=== PATIENT | female | born 1990 | race Caucasian/White ===

== ENCOUNTER 2023-06-26 11:48 | Emergency (ER) | payer OTHER, SELFPAY ==
[2023-06-26 11:52] VITALS: BP 114/71; PULSE 98; RESP 16; TEMP 37.1; O2SAT 99; BMI 28.2
--- NOTE | 2023-06-26 12:05 | ED_ITS ---
HPI - Female Genitourinary General Chief complaint: Back Pain/Injury Stated complaint: FLANK PAIN Time Seen by Provider: 06/26/23 11:51 Source: patient Mode of arrival: ambulance History of Present Illness HPI Narrative: 33-year-old female presents to the emergency department for a chief complaint of lower back pain. She believes she has a urinary tract infection. It started a few days ago when she took some [id number] Azo. It doesn't seem to be helping. No fever vomiting or abdominal pain. Related Data Home Medications Medication Instructions Recorded Confirmed norethindrone 1 mg-ethinyl 1 tab PO DAILY 06/26/23 06/26/23 estradiol 20 mcg (24)-iron 75 mg (4) tablet (Brooke 24 Fe) Previous Rx's Medication Instructions Recorded cephalexin 500 mg capsule 500 mg PO TID 7 days #21 caps 06/26/23 Allergies Allergy/AdvReac Type Severity Reaction Status Date / Time No Known Drug Allergies Allergy Verified 06/26/23 11:56 Review of Systems ROS Narrative A ten point review of systems is negative except as noted above. Exam Narrative Exam Narrative: Nurses note and vital signs reviewed and patient is not hypoxic. General: The patient appears well and in no apparent distress. Patient is resting comfortably on cart. Skin: Warm, dry, no pallor noted. There is no rash noted. Head: Normocephalic, atraumatic Eye: Normal conjunctiva, no drainage Ears, Nose, Mouth, and Throat: oral mucosa is moist. Nares patent. Cardiovascular: Regular Rate and Rhythm Respiratory: Patient is in no distress, no accessory muscle use, lungs are clear to auscultation, no wheezing, rales or rhonchi Back: non-tender, no CVA tenderness bilaterally to percussion. GI: soft and nontender Musculoskeletal: The patient has no evidence of calf tenderness, no pitting edema, symmetrical pulses noted bilaterally Neurological: A&O, normal speech Psychiatric: Cooperative Constitutional Vital Signs, click to edit/add: Last Vital Signs Temp 98.7 F 06/26/23 11:52 Pulse 98 H 06/26/23 11:52 Resp 16 06/26/23 11:52 BP 114/71 06/26/23 11:52 Pulse Ox 99 06/26/23 11:52 O2 Del Method Room Air 06/26/23 11:52 Course Vital Signs Vital signs: Vital Signs Temperature 98.7 F 06/26/23 11:52 Pulse Rate 98 H 06/26/23 11:52 Respiratory Rate 16 06/26/23 11:52 Blood Pressure 114/71 06/26/23 11:52 Pulse Oximetry 99 06/26/23 11:52 Oxygen Delivery Method Room Air 06/26/23 11:52 Temperature 98.7 F 06/26/23 11:52 Pulse Rate 98 H 06/26/23 11:52 Respiratory Rate 16 06/26/23 11:52 Blood Pressure 114/71 06/26/23 11:52 Pulse Oximetry 99 06/26/23 11:52 Oxygen Delivery Method Room Air 06/26/23 11:52 MDM - Female Genitourinary MDM Narrative Medical decision making narrative: urinalysis shows presence of urinary tract infection. test was positive and her hCG titer is 178. Rh type is positive. She is being prescribed Keflex and will need a repeat titer in two days to determine if her hCG titer is going up or down. This was discussed thoroughly with her and she is going to call her RADIO ENGINEER office today to arrange follow-up. I've no clinical suspicion of an ectopic . Treatment diagnosis and follow-up were discussed with the patient. Differential Diagnosis Differential diagnosis: Likely urinary tract infection and other (, miscarriage) Lab Data Attestation: I reviewed the patient's lab results. Labs: Lab Results 06/26/23 06/26/23 06/26/23 Range/Units 11:57 12:25 12:53 WBC 11.5 H (4.0-11.0) 10^3/uL RBC 3.87 L (4.20-5.40) 10^6/uL Hgb 11.8 L (12.0-16.0) g/dL Hct 36.1 (36.0-48.0) % MCV 93.3 (81.0-99.0) fL MCH 30.5 (26.7-34.0) pg MCHC 32.7 (29.9-35.2) g/dL RDW 12.9 (11.0-15.0) % Plt Count 264 (150-450) 10^3/uL MPV 10.1 (9.5-13.5) fL Neut % (Auto) 73.9 (43.0-75.0) % Lymph % (Auto) 20.5 (20.5-60.0) % [place] % (Auto) 3.8 (1.7-12.0) % Eos % (Auto) 1.3 (0.9-7.0) % Baso % (Auto) 0.3 (0.2-2.0) % Neut # (Auto) 8.5 H (1.4-6.5) 10^3/uL Lymph # (Auto) 2.4 (1.2-3.8) 10^3/uL [place] # (Auto) 0.4 (0.3-0.8) 10^3/uL Eos # (Auto) 0.2 (0.0-0.7) 10^3/uL Baso # (Auto) 0.0 (0.0-0.1) 10^3/uL Abs Immat Gran (auto) 0.02 (0.00-0.03) 10^3/uL Imm/Tot Granulo (auto) 0.2 (0.0-0.5) % Sodium 141 (136-145) mmol/L Potassium 3.6 (3.5-5.1) mmol/L Chloride 105 (98-107) mmol/L Carbon Dioxide 25.6 (21.0-32.0) mmol/L Anion Gap 14.0 BUN 11.0 (7.0-18.0) mg/dL Creatinine 0.81 (0.55-1.02) mg/dL Est GFR ( Amer) >60 (>=60) Est GFR (Non-Af Amer) >60 (>=60) BUN/Creatinine Ratio 13.6 Glucose 87 (74-106) mg/dL Calcium 8.4 L (8.5-10.1) mg/dL HCG, Quant 178 mIU/mL Urine Color Dk. orange (YELLOW) Urine Clarity Clear (CLEAR) Urine pH Color interference A (5.0-9.0) Ur Specific [place] 1.025 (1.005-1.025) Urine Protein Color interference A (NEG/TRACE) mg/dL Urine Glucose (UA) Color interference A (NEGATIVE) mg/dL Urine Ketones Color interference A (NEGATIVE) mg/dL Urine Occult Blood Color interference A (NEGATIVE) Urine Nitrite Color interference A (NEGATIVE) Urine Bilirubin Color interference A (NEGATIVE) Urine Urobilinogen Color interference A (0.2-1.0) EU/dL Ur Leukocyte Esterase Color interference A (NEGATIVE) Urine RBC 10-20 A (0-2) #/HPF Urine WBC 20-50 A (NONE SEEN) #/HPF Ur Squamous Epith Cells Few A (NONE/RARE) #/LPF Urine Crystals None seen (None Seen) #/HPF Urine Bacteria Small A (NONE SEEN) #/HPF Urine Casts None seen (NONE SEEN) #/LPF Urine Mucus Trace A (NONE SEEN) Urine HCG, Qual Positive A (NEGATIVE) Blood Type A Positive Discharge Plan Discharge Chief Complaint: Back Pain/Injury Clinical Impression: Urinary tract infection, Positive blood test Patient Disposition: Home, Self-Care Time of Disposition Decision: 14:02 Condition: Good Mode of Transportation: Private Vehicle Prescriptions / Home Meds: New cephalexin 500 mg capsule 500 mg PO TID 7 Days Qty: 21 0RF No Action Brooke 24 Fe 1 mg-20 mcg (24)/75 mg (4) tablet 1 tab PO DAILY Instructions: (ED), Urinary Tract Infection in Women (ED) Additional Instructions: Your hCG titer is 178. This will need to be repeated in two days to determine if it is going up or down. Please call your RADIO ENGINEER today to arrange follow-up. Stand Alone Forms: Portal Instructions Referrals: Shagufta Heredia [Primary Care Provider] - 1 week
[2023-06-26 12:21] LABS: Bilirubin Urine COLOR INTERFERENCE (NEGATIVE); Blood Urine COLOR INTERFERENCE (NEGATIVE); Clarity Urine CLEAR (CLEAR); Color Urine DK. ORANGE (YELLOW); Glucose Urine UA COLOR INTERFERENCE mg/dL (NEGATIVE); Ketones Urine COLOR INTERFERENCE mg/dL (NEGATIVE); Leukocyte Esterase Urine COLOR INTERFERENCE (NEGATIVE); Nitrite Urine COLOR INTERFERENCE (NEGATIVE); Protein Urine COLOR INTERFERENCE mg/dL (NEG/TRACE); Specific Gravity Urine 1.025 (1.005-1.025); Urobilinogen Urine COLOR INTERFERENCE EU/dL (0.2-1.0); pH Urine COLOR INTERFERENCE (5.0-9.0)
[2023-06-26 12:23] LABS: HCG Qualitative Urine* POSITIVE (NEGATIVE)
[2023-06-26 12:29] LABS: Bacteria Urine SMALL #/HPF (NONE SEEN); Crystals Seen? None Seen #/HPF (None Seen); Mucus Urine TRACE (NONE SEEN); Squamous Epithelial Cell Urine FEW #/LPF (NONE/RARE); WBC Urine 20-50 #/HPF (NONE SEEN)
[2023-06-26 12:30] LABS: Cast Seen? NONE SEEN #/LPF (NONE SEEN)
[2023-06-26 13:05] LABS: Basophils Percent Auto 0.3 % (0.2-2.0); Eosinophils Absolute Auto 0.2 10^3/uL (0.0-0.7); Eosinophils Percent Auto 1.3 % (0.9-7.0); Hematocrit 36.1 % (36.0-48.0); Hemoglobin 11.8 g/dL (12.0-16.0); Immature Granulocytes Abs Auto 0.02 10^3/uL (0.00-0.03); Immature Granulocytes Pct Auto 0.2 % (0.0-0.5); Lymphocytes Absolute Auto 2.4 10^3/uL (1.2-3.8); Lymphocytes Percent Auto 20.5 % (20.5-60.0); Mean Corpuscular HGB Conc 32.7 g/dL (29.9-35.2); Mean Corpuscular Hemoglobin 30.5 pg (26.7-34.0); Mean Corpuscular Volume 93.3 fL (81.0-99.0); Mean Platelet Volume 10.1 fL (9.5-13.5); Monocytes Absolute Auto 0.4 10^3/uL (0.3-0.8); Monocytes Percent Auto 3.8 % (1.7-12.0); Neutrophils Absolute Auto 8.5 10^3/uL (1.4-6.5); Neutrophils Percent Auto 73.9 % (43.0-75.0); Platelet Count 264 10^3/uL (150-450); Red Blood Count 3.87 10^6/uL (4.20-5.40); Red Cell Distribution Width 12.9 % (11.0-15.0); White Blood Count 11.5 10^3/uL (4.0-11.0)
[2023-06-26 13:30] LABS: BUN Creatinine Ratio 13.6; Calcium 8.4 mg/dL (8.5-10.1); Carbon Dioxide 25.6 mmol/L (21.0-32.0); Chloride 105 mmol/L (98-107); Estimated GFR (African America >60 (>=60); Estimated GFR (Non-African Ame >60 (>=60); Glucose 87 mg/dL (74-106); HCG Quantitative 178 mIU/mL; Potassium 3.6 mmol/L (3.5-5.1); Sodium 141 mmol/L (136-145)
== END 2023-06-26 14:18 | disposition home or self-care (01) ==
PROVIDERS: Emergency Provider Emergency Medicine; PCP Family Medicine
DX: O23.40 Unspecified infection of urinary tract in pregnancy, unspecified trimester (principal); N39.0 Urinary tract infection, site not specified; Z3A.00 Weeks of gestation of pregnancy not specified
CPT/HCPCS: 36415; 80048; 81001; 84702; 84703; 85025; 86900; 86901; 99283

== ENCOUNTER 2023-07-03 14:40 | Emergency (ER) | payer OTHER, SELFPAY ==
[2023-07-03 15:03] VITALS: BP 114/65; PULSE 75; RESP 18; TEMP 36.6; O2SAT 98; BMI 26.9
[2023-07-03 16:09] LABS: Bilirubin Urine NEGATIVE (NEGATIVE); Blood Urine MODERATE (NEGATIVE); Clarity Urine CLEAR (CLEAR); Color Urine LT. YELLOW (YELLOW); Glucose Urine UA NEGATIVE (NEGATIVE); Ketones Urine NEGATIVE (NEGATIVE); Leukocyte Esterase Urine SMALL (NEGATIVE); Nitrite Urine NEGATIVE (NEGATIVE); Protein Urine NEGATIVE (NEG/TRACE); Specific Gravity Urine 1.015 (1.005-1.025); Urobilinogen Urine 0.2 EU/dL (0.2-1.0); pH Urine 6.5 (5.0-9.0)
[2023-07-03 16:09] LABS: Basophils Percent Auto 0.5 % (0.2-2.0); Eosinophils Absolute Auto 0.2 10^3/uL (0.0-0.7); Eosinophils Percent Auto 2.2 % (0.9-7.0); Hematocrit 39.6 % (36.0-48.0); Hemoglobin 12.6 g/dL (12.0-16.0); Immature Granulocytes Abs Auto 0.03 10^3/uL (0.00-0.03); Immature Granulocytes Pct Auto 0.4 % (0.0-0.5); Lymphocytes Absolute Auto 2.8 10^3/uL (1.2-3.8); Lymphocytes Percent Auto 38.8 % (20.5-60.0); Mean Corpuscular HGB Conc 31.8 g/dL (29.9-35.2); Mean Corpuscular Hemoglobin 30.1 pg (26.7-34.0); Mean Corpuscular Volume 94.5 fL (81.0-99.0); Mean Platelet Volume 9.9 fL (9.5-13.5); Monocytes Absolute Auto 0.4 10^3/uL (0.3-0.8); Monocytes Percent Auto 5.3 % (1.7-12.0); Neutrophils Absolute Auto 3.9 10^3/uL (1.4-6.5); Neutrophils Percent Auto 52.8 % (43.0-75.0); Platelet Count 289 10^3/uL (150-450); Red Blood Count 4.19 10^6/uL (4.20-5.40); Red Cell Distribution Width 12.2 % (11.0-15.0); White Blood Count 7.3 10^3/uL (4.0-11.0)
[2023-07-03 16:10] LABS: Urine Microscopic Indicated YES
[2023-07-03 16:20] LABS: Bacteria Urine TRACE #/HPF (NONE SEEN); Cast Seen? NONE SEEN #/LPF (NONE SEEN); Crystals Seen? None Seen #/HPF (None Seen); Mucus Urine NONE SEEN (NONE SEEN); Squamous Epithelial Cell Urine FEW #/LPF (NONE/RARE); Urine Culture Indicated YES
[2023-07-03 16:27] LABS: HCG Quantitative 74 mIU/mL
--- NOTE | 2023-07-03 16:36 | US_ITS ---
The [address] [address] Patient Name: JUANJOSE GERONIMO MRN: [facility]:[id number] date: 1990 Sex: F Assigned Patient Location: ER Current Patient Location: ER Accession/Order Number: [id number] Exam Date: 07/03/2023 17:00 Report Date: 07/03/2023 18:22 At the request of: JOE HAWKINS Procedure: US OB transvaginal EXAM: US OB transvaginal; [id number] HISTORY: Uncontrolled pain, miscarriage. TECHNIQUE: Real-time transvaginal sonography of the pelvis was performed. Endovaginal ultrasound was performed for better evaluation of the endometrial stripe and adnexa. Doppler ultrasound and spectral waveforms of both ovaries were obtained. COMPARISON: None. FINDINGS: UTERUS: Normal size. Position: Anteverted. Anteflexed. Myometrium is homogeneous. Fibroids: None. ENDOMETRIUM: Complex cystic thickening of the fundal portion of the endometrium which demonstrates intrinsic Doppler signal. RIGHT OVARY: Normal appearance of the parenchyma and follicles. Size: 2.2 x 2.7 x 2.2 cm. Volume: 6.8 cc. No adnexal masses. Venous and arterial waveforms are within normal limits and symmetric with the opposite ovary. LEFT OVARY: Normal appearance of the parenchyma and follicles. Size: 2.9 x 2.5 x 3.1 cm. Volume: 11.6 cc. No adnexal masses. Venous and arterial waveforms are within normal limits and symmetric with the opposite ovary. PELVIC FLUID: No significant free fluid. US/US OB transvaginal IMPRESSION: 1. No viable intrauterine demonstrated. 2. Complex thickening of the fundal portion of the endometrium which contains intrinsic Doppler signal. In the setting of recent these findings are suspect for retained products of conception. Electronically authenticated by: ALEXANDRIA LI Date: 07/03/2023 18:22
--- NOTE | 2023-07-03 16:37 | ED.PREGNANC1 ---
HPI - General Chief complaint: Vaginal Bleeding Stated complaint: GENERAL WEAKNESS Time Seen by Provider: 07/03/23 15:01 Source: patient Mode of arrival: walk-in Limitations: no limitations History of Present Illness HPI Narrative: Patient is a 33-year-old female who returns to the emergency department for reevaluation. Patient was seen in this emergency department 1 week ago and diagnosed with a positive test which was incidentally found when she was being evaluated for UTI symptoms. She finished a 7-day course of Keflex today and states she continues to have low back pain, she states she believes she has completed a miscarriage as she has had bleeding intermittently associated with the low back pain. Her paperboard box maker repeated a quantitative hCG level which she states decreased but she was told to come back to the ER for pain control. She has had no fevers or vomiting. She has not taken any medications [id number] and she was not prescribed any medicine. Related Data Home Medications Medication Instructions Recorded Confirmed norethindrone 1 mg-ethinyl 1 tab PO DAILY 06/26/23 06/26/23 estradiol 20 mcg (24)-iron 75 mg (4) tablet (Brooke 24 Fe) Previous Rx's Medication Instructions Recorded cephalexin 500 mg capsule 500 mg PO TID 7 days #21 caps 06/26/23 hydrocodone 5 mg-acetaminophen 325 1 tab PO Q6H PRN pain 3 days #12 07/03/23 mg tablet tabs ketorolac 10 mg tablet 10 mg PO TID PRN pain #10 tabs 07/03/23 ondansetron 4 mg disintegrating 4 mg PO Q6H PRN nausea and 07/03/23 tablet vomiting #12 tabs Allergies Allergy/AdvReac Type Severity Reaction Status Date / Time No Known Drug Allergies Allergy Verified 06/26/23 11:56 Review of Systems ROS Constitutional Denies: fever or chills Cardiovascular Denies: chest pain Respiratory Denies: shortness of breath or cough Gastrointestinal Denies: abdominal pain, nausea, vomiting or diarrhea Genitourinary Denies: painful urination Musculoskeletal Reports: back pain Integumentary/Breast Denies: rash Neurological Denies: headache PFSH PFSH Social History Smoking status: Current every day smoker Exam Narrative Exam Narrative: Gen.: Awake, alert, in no distress Head: Normocephalic, atraumatic ENT: Moist mucous membranes Respiratory: No respiratory distress, lungs clear bilaterally Cardio: Regular rate and rhythm Gastrointestinal: Abdomen is soft, nondistended and nontender to palpation; no CVA tenderness Extremities: Moves extremities equally Psych: Normal mood and affect Neuro: No focal neuro deficit Skin: Warm, dry, intact Constitutional Vital Signs, click to edit/add: Last Vital Signs Temp 97.8 F 07/03/23 15:03 Pulse 75 07/03/23 15:03 Resp 18 07/03/23 15:03 BP 114/65 07/03/23 15:03 Pulse Ox 98 07/03/23 15:03 O2 Del Method Room Air 07/03/23 15:03 Course Vital Signs Vital signs: Vital Signs Temperature 97.8 F 07/03/23 15:03 Pulse Rate 75 07/03/23 15:03 Respiratory Rate 18 07/03/23 15:03 Blood Pressure 114/65 07/03/23 15:03 Pulse Oximetry 98 07/03/23 15:03 Oxygen Delivery Method Room Air 07/03/23 15:03 Temperature 97.8 F 07/03/23 15:03 Pulse Rate 75 07/03/23 15:03 Respiratory Rate 18 07/03/23 15:03 Blood Pressure 114/65 07/03/23 15:03 Pulse Oximetry 98 07/03/23 15:03 Oxygen Delivery Method Room Air 07/03/23 15:03 MDM - OB/Uterine Contractions MDM Narrative Medical decision making narrative: Lab studies are unremarkable, urine specimen has improved significantly, quantitative hCG levels have decreased. Ultrasound shows continued evidence of retained products in the posterior aspect of the endometrium, this is likely given the patient low back pain. Bleeding is minimal at this time, intermittent. Patient was encouraged to follow-up for recheck with her paperboard box maker, her clinical presentation is consistent with incomplete at this time. She will be given a short course of analgesics, NSAIDs, Zofran. Return to the ER if symptoms change or worsen. Medical Records Attestation: I reviewed the patient's medical records. Lab Data Attestation: I reviewed the patient's lab results. Labs: Lab Results 07/03/23 07/03/23 Range/Units 15:40 15:53 WBC 7.3 (4.0-11.0) 10^3/uL RBC 4.19 L (4.20-5.40) 10^6/uL Hgb 12.6 (12.0-16.0) g/dL Hct 39.6 (36.0-48.0) % MCV 94.5 (81.0-99.0) fL MCH 30.1 (26.7-34.0) pg MCHC 31.8 (29.9-35.2) g/dL RDW 12.2 (11.0-15.0) % Plt Count 289 (150-450) 10^3/uL MPV 9.9 (9.5-13.5) fL Neut % (Auto) 52.8 (43.0-75.0) % Lymph % (Auto) 38.8 (20.5-60.0) % [place] % (Auto) 5.3 (1.7-12.0) % Eos % (Auto) 2.2 (0.9-7.0) % Baso % (Auto) 0.5 (0.2-2.0) % Neut # (Auto) 3.9 (1.4-6.5) 10^3/uL Lymph # (Auto) 2.8 (1.2-3.8) 10^3/uL [place] # (Auto) 0.4 (0.3-0.8) 10^3/uL Eos # (Auto) 0.2 (0.0-0.7) 10^3/uL Baso # (Auto) 0.0 (0.0-0.1) 10^3/uL Abs Immat Gran (auto) 0.03 (0.00-0.03) 10^3/uL Imm/Tot Granulo (auto) 0.4 (0.0-0.5) % HCG, Quant 74 mIU/mL Urine Color Lt. yellow (YELLOW) Urine Clarity Clear (CLEAR) Urine pH 6.5 (5.0-9.0) Ur Specific [place] 1.015 (1.005-1.025) Urine Protein Negative (NEG/TRACE) mg/dL Urine Glucose (UA) Negative (NEGATIVE) mg/dL Urine Ketones Negative (NEGATIVE) mg/dL Urine Occult Blood Moderate A (NEGATIVE) Urine Nitrite Negative (NEGATIVE) Urine Bilirubin Negative (NEGATIVE) Urine Urobilinogen 0.2 (0.2-1.0) EU/dL Ur Leukocyte Esterase Small A (NEGATIVE) Urine RBC 2-5 A (0-2) #/HPF Urine WBC 5-10 A (NONE SEEN) #/HPF Ur Squamous Epith Cells Few A (NONE/RARE) #/LPF Urine Crystals None seen (None Seen) #/HPF Urine Bacteria Trace A (NONE SEEN) #/HPF Urine Casts None seen (NONE SEEN) #/LPF Urine Mucus None seen (NONE SEEN) Ur Culture Indicated? Yes Blood Type A Positive Discharge Plan Discharge Chief Complaint: Vaginal Bleeding Clinical Impression: Incomplete Patient Disposition: Home, Self-Care Time of Disposition Decision: 18:32 Condition: Good Prescriptions / Home Meds: New hydrocodone-acetaminophen 5-325 mg tablet 1 tab PO Q6H PRN (Reason: pain) 3 Days Qty: 12 0RF Rx Instructions: DX: M54.5 ketorolac 10 mg tablet 10 mg PO TID PRN (Reason: pain) Qty: 10 0RF ondansetron 4 mg tablet,disintegrating 4 mg PO Q6H PRN (Reason: nausea and vomiting) Qty: 12 0RF No Action Brooke 24 Fe 1 mg-20 mcg (24)/75 mg (4) tablet 1 tab PO DAILY cephalexin 500 mg capsule 500 mg PO TID 7 Days Qty: 21 0RF Instructions: Miscarriage (ED) Stand Alone Forms: Portal Instructions Referrals: Shagufta Heredia [Primary Care Provider] - 1 week
[2023-07-03] MEDS: KETOROLAC TROMETHAMINE 60 MG/2 ML VIAL IM (16:44)
== END 2023-07-03 18:45 | disposition home or self-care (01) ==
PROVIDERS: Physician Assistant; Emergency Provider Emergency Medicine Emergency Medical Services; PCP Family Medicine
DX: O03.4 Incomplete spontaneous abortion without complication (principal); F17.210 Nicotine dependence, cigarettes, uncomplicated
CPT/HCPCS: 36415; 76817; 81001; 84702; 85025; 86900; 86901; 87086; 96372; 99285

== ENCOUNTER 2023-08-24 20:16 | Emergency (ER) | payer OTHER, SELFPAY ==
[2023-08-24 20:20] VITALS: BP 114/80; PULSE 82; RESP 18; TEMP 36.5; O2SAT 100; BMI 29.8
--- OUTSIDE RECORDS SUMMARY | 2023-08-24 20:31 | XMS_ITS | CCD ---
Author Name Unknown Address [address] [place] [address] Organization [facility] Care Team Providers Care Real Estate Coordinator Name Role Phone REQUEST, DR NONE LISTED Primary Care Unavaila juventino ALDANA, DR ZACK Do Admitting Unavailable ERICKA HAWKINS Consulting Unavailable JOVAN, DR ZACK Do Attending Unavailable JUANITA WHEELER Consulting Unavailable Sheryl Silva Unavailable Rumschlag DO, Shagufta K Primary Care Provider [phone] STACIA BAKER Attending Unavailable RUMSCHLAG, SHAGUFTA K Referring Unavailable RUMSCHLAG, SHAGUFTA K Primary Care Unavailable STACIA BAKER Attending Unavailable RUMSCHLAG, SHAGUFTA K Referring Unavailable RUMSCHLAG, SHAGUFTA K Primary Care Unavailable ERICA, LAUREN Referring Unavailable RUMSCHLAG, SHAGUFTA K Primary Care Unavailable RUMSCHLAG, SHAGUFTA K Referring Unavailable RUMSCHLAG, SHAGUFTA K Primary Care Unavailable RUMSCHLAG, SHAGUFTA K Referring Unavailable RUMSCHLAG, SHAGUFTA K Primary Care Unavailable SHAHANA MURO M Referring Unavailable RUMSCHLAG, SHAGUFTA K Primary Care Unavailable SHAHANA MURO M Referring Unavailable RUMSCHLAG, SHAGUFTA K Primary Care Unavailable STACIA BAKER Attending Unavailable STACIA BAKER Referring Unavailable RUMSCHLAG, SHAGUFTA K Primary Care Unavailable STACIA BAKER Referring Unavailable RUMSCHLAG, SHAGUFTA K Primary Care Unavailable RUMSCHLAG, SHAGUFTA K Referring Unavailable RUMSCHLAG, SHAGUFTA K Primary Care Unavailable ERICA LAUREN Referring Unavailable RUMSCHLAG, SHAGUFTA K Primary Care Unavailable LAUREN MALDONADO Admitting Unavailable LAUREN MALDONADO Attending Unavailable ERICALAUREN Referring Unavailable RUMSCHLAG, SHAGUFTA K Primary Care Unavailable RAIN BOX Attending Unavailable SHAGUFTA NELSON Primary Care Unavailable LAUREN MALDONADO Referring Unavailable SHAGUFTA NELSON Primary Care Unavailable Allergies Allergy Classification Reported Allergen(s) Allergy Type Date of Onset Reaction(s) Facility (12 sources) Amoxicillin; Translations: [AMOXICILLIN] Drug Allergy 02-26-2021 anaphylaxis, Rash [facility] Medications Current Medications Medication Drug Class(es) Dates Sig (Normalized) Sig (Original) acetaminophen 325 mg / HYDROcodone bitartrate 5 mg oral tablet (9 sources) Opioid Agonist Start: 3 HYDROcodone-acetamin ophen (NORCO) 5-325 mg per tablet Brompheniramine / Pseudoephedrine (1 source) alpha-Adrenergic Agonist Start: 1 take 5 mL by mouth every six hours as needed Bromfed DM 30-2-10 MG/5ML 5 ml as needed Orally every 6 hrs Apr, Active doxycycline hyclate 100 mg oral capsule (1 source) Tetracycline-class Drug Start: 4 End: 4 take 1 capsule by mouth in the morning, then take 1 capsule by mouth at bedtime doxycycline (VIBRAMYCIN) 100 mg capsule Take 1 capsule (100 mg total) by mouth in the morning and 1 capsule (100 mg total) before bedtime. Do all this for 7 days. 14 capsule 0 08/18/2023 08/25/2023 Active Ethinyl Estradiol / Ferrous fumarate / Norethindrone (9 sources) Estrogen Start: 3 take 1 tablet by mouth once in the morning norethindrone-e.estr adioL-iron (FRANDY 24 FE) 1 mg-20 mcg (24)/75 mg (4) per tablet Indications: Surveillance of contraceptive pill TAKE 1 TABLET BY MOUTH IN THE MORNING 28 tablet 11 05/09/2023 Active Ethinyl Estradiol / norgestimate (1 source) Progestin, Estrogen Ortho Tri-Cy clen (28) Active fluticasone propionate 0.05 mg/actuat metered dose nasal spray (1 source) Corticosteroid Start: 1 take 1 spray(s) nasal route once daily Fluticasone Propionate 50 MCG/ACT 1 spray in each nostril Nasally Once a day for 30 day(s) Apr, Active ibuprofen 800 mg oral tablet (8 sources) Nonsteroidal Anti-inflammatory Drug Start: 4 take 1 tablet by mouth every eight hours as needed for pain ibuprofen (MOTRIN) 800 mg tablet Take 1 tablet (800 mg total) by mouth every 8 (eight) hours as needed for pain. 20 tablet 0 08/18/2023 Active methylergonovine maleate 0.2 mg oral tablet (1 source) Ergot Derivative Start: 4 take 1 tablet by mouth every six hours methylergonovine (METHERGINE) 0.2 mg tablet Take 1 tablet (200 mcg total) by mouth every 6 (six) hours. 12 tablet 0 08/18/2023 Active ondansetron 4 mg disintegrating oral tablet (9 sources) Serotonin-3 Receptor Antagonist Start: 3 ondansetron ODT (ZOFRAN ODT) 4 mg disintegrating tablet Completed/Discontinued Medications Medication Drug Class(es) Dates Sig (Normalized) Sig (Original) ketorolac tromethamine 10 mg oral tablet (3 sources) Nonsteroidal Anti-inflammatory Drug, Cyclooxygenase Inhibitor Start: 07-04-2023 End: 08-03-2023 ketorolac (TORADOL) 10 mg tablet Problems Active Problems Problem Classification Problem Date Documented Da te Episodic/Chronic Other acquired deformities (9 sources) Scoliosis deformity of spine; Translations: [Scoliosis, unspecified] Onset: 02-14-2019 02-14-2019 Chronic Other complications of (1 source) Missed miscarriage; Translations: [Missed ] 08-17-2023 Episodic Other complications of (1 source) Missed ; Translations: [Missed ] Onset: 08-17-2023 Episodic Spondylosis; intervertebral disc disorders; other back problems (2 sources) Low back pain; Translations: [Low back pain, unspecified back pain laterality, unspecified chronicity, unspecified whether sciatica present] 08-01-2023 Episodic Spontaneous (5 sources) Miscarriage; Translations: [Complete or unspecified spontaneous without complication] Onset: 07-18-2023 08-01-2023 Episodic Substance-related disorders (10 sources) Nicotine dependence, cigarettes, uncomplicated; Translations: [Smoker] Onset: 02-14-2019 02-14-2019 Chronic Unclassified (2 sources) Low back pain, unspecified; Translations: [Low back pain, unspecified] Onset: 08-01-2023 Unclassified (1 source) missed AB, retained products of conception Onset: 08-18-2023 Past or Other Problems Problem Classification Problem Date Documented Da te Episodic/Chronic Immunizations and screening for infectious disease (1 source) Contact with and (suspected) exposure to other viral communicable diseases; Translations: [Contact with and (suspected) exposure to other viral communicable diseases Z20.828] Onset: 05-02-2021 Resolved: 05-02-2021 Episodic Mood disorders (9 sources) Mood disorders Onset: 04-12-2023 04-12-2023 Other connective tissue disease (2 sources) Other specified soft tissue disorders; Translations: [OTHER SPEC SOFT TISSUE DISORDERS] Onset: 02-22-2020 Episodic Other screening for suspected conditions (not mental disorders or infectious disease) (1 source) Other specified abnormal findings of blood chemistry; Translations: [OTH SPEC ABNORMAL FINDINGS BLD CHEM] Onset: 2020 Episodic Other upper respiratory infections (1 source) Acute pharyngitis, unspecified; Translations: [Sore throat J02.9] Onset: 05-02-2021 Resolved: 05-02-2021 Episodic Residual codes; unclassified (9 sources) Family history of development disorder; Translations: [Family history of other endocrine, nutritional and metabolic diseases] Onset: 02-14-2019 02-14-2019 Episodic Skin and subcutaneous tissue infections (1 source) Cellulitis of left lower limb; Translations: [CELLULITIS OF LEFT LOWER LIMB] Onset: 2020 Episodic Substance-related disorders (9 sources) Marijuana user; Translations: [Cannabis use, unspecified, uncomplicated] Onset: 02-14-2019 02-14-2019 Episodic Unclassified (9 sources) Onset: 04-11-2022 04-11-2022 Results Test Name Value Interpretation Reference Range Facility CBC AND AUTO DIFFon 08-17-19 ABSOLUTE BASOPHIL 0.0 X10E9/L Normal 0.0-0.2 [facility] Comment on above: Performed By: #### C BCA, CMP, 22745-0 #### [facility] ([id number]) [address], [address] [place] [address] ABSOLUTE NEUTROPHIL 3.6 X10E9/L Normal 1.5-6.6 [facility] Comment on above: Performed By: #### Judi PERRY CMP, #### [facility] ([id number]) [address], [address] [place] [address] Basophils/100 WBC (Bld) 0.4 % Normal [facility] Comment on above: Performed By: #### Judi PERRY CMP, #### [facility] ([id number]) [address], [address] [place] [address] Eosinophils (Bld) [#/Vol] 0.1 10*3/uL Normal 0.0-0.4 [facility] Comment on above: Performed By: #### Judi PERRY CMP, #### [facility] ([id number]) [address], [address] [place] [address] Eosinophils/100 WBC (Bld) 1.8 % Normal [facility] Comment on above: Performed By: #### Judi PERRY CMP, #### [facility] ([id number]) [address], [address] [place] [address] Erythrocyte distribution width (RBC) [Ratio] 13.8 % Normal 11.5-15.0 [facility] Comment on above: Performed By: #### Judi PERRY CMP, #### [facility] ([id number]) [address], [address] [place] [address] Hematocrit (Bld) [Volume fraction] 37.7 % Normal 35-47 [facility] Comment on above: Performed By: #### Judi PERRY CMP, #### [facility] ([id number]) [address], [address] [place] [address] Hemoglobin (Bld) [Mass/Vol] 12.5 g/dL Normal 11.7-15.5 [facility] Comment on above: Performed By: #### Judi PERRY CMP, #### [facility] ([id number]) [address], [address] [place] [address] Lymphocytes (Bld) [#/Vol] 2.3 10*3/uL Normal 1.0-3.5 [facility] Comment on above: Performed By: #### Judi PERRY CMP, #### [facility] ([id number]) [address], [facility] [address] [place] [address] Lymphocytes/100 WBC (Bld) 35.7 % Normal [facility] Comment on above: Performed By: #### Judi PERRY CMP, #### [facility] ([id number]) [address], [facility] [address] [place] [address] MCH (RBC) [Entitic mass] 29.9 pg Normal 27-34 [facility] Comment on above: Performed By: #### Judi PERRY CMP, #### [facility] ([id number]) [address], [address] [place] [address] MCHC (RBC) [Mass/Vol] 33.2 g/dL Normal 32-36 [facility] Comment on above: Performed By: #### uJdi PERRY CMP, #### [facility] ([id number]) [address], [address] [place] [address] MCV (RBC) [Entitic vol] 90 fL Normal 80-100 [facility] Comment on above: Performed By: #### Judi PERRY CMP, #### [facility] ([id number]) [address], [address] [place] [address] Monocytes (Bld) [#/Vol] 0.4 10*3/uL Normal 0-0.9 [facility] Comment on above: Performed By: #### C BCA, CMP, #### [facility] ([id number]) [address], [address] [place] [address] Monocytes/100 WBC (Bld) 5.8 % Normal [facility] Comment on above: Performed By: #### C BCA, CMP, #### [facility] ([id number]) [address], [address] [place] [address] Neutrophils/100 WBC (Bld) 56.3 % Normal [facility] Comment on above: Performed By: #### C BCA, CMP, #### [facility] ([id number]) [address], [address] [place] [address] Platelet mean volume (Bld) [Entitic vol] 8.7 fL Normal 7-12 [facility] Comment on above: Performed By: #### Judi BCA, CMP, #### [facility] ([id number]) [address], [address] [place] [address] Platelets (Bld) [#/Vol] 244 10*3/uL Normal 150-450 [facility] Comment on above: Performed By: #### Judi BCA, CMP, #### [facility] ([id number]) [address], [address] [place] [address] RBC COUNT 4.18 X10E12/L Normal 3.80-5.20 [facility] Comment on above: Performed By: #### C BCA, CMP, #### [facility] ([id number]) [address], [address] [place] [address] WBC (Bld) [#/Vol] 6.5 10*3/uL Normal 4.0-11.0 [facility] Comment on above: Performed By: #### C BCA, CMP, #### [facility] ([id number]) [address], [address] [place] [address] COMPREHENSIVE METABOLIC PANE Cirilo 08-17-2023 Albumin [Mass/Vol] 4.5 g/dL Normal 3.2-5.3 [facility] Comment on above: Performed By: #### C BCA, CMP, #### [facility] ([id number]) [address], [address] [place] [address] ALP [Catalytic activity/Vol] 52 U/L Normal 39-130 [facility] Comment on above: Performed By: #### C BCA, CMP, #### [facility] ([id number]) [address], [address] [place] [address] ALT [Catalytic activity/Vol] 22 U/L Normal 0-31 [facility] Comment on above: Performed By: #### C BCA, CMP, #### [facility] ([id number]) [address], [address] [place] [address] Anion gap [Moles/Vol] 6 mmol/L Normal 5-15 [facility] Comment on above: Performed By: #### C BCA, CMP, #### [facility] ([id number]) [address], [address] [place] [address] AST [Catalytic activity/Vol] 14 U/L Normal 0-41 [facility] Comment on above: Performed By: #### C BCA, CMP, #### [facility] ([id number]) [address], [address] [place] [address] Bilirubin [Mass/Vol] 0.4 mg/dL Normal 0.3-1.2 [facility] Comment on above: Performed By: #### C BCA, CMP, #### [facility] ([id number]) [address], [address] [place] [address] Calcium [Mass/Vol] 8.8 mg/dL Normal 8.5-10.5 [facility] Comment on above: Performed By: #### C AMY PERRY, #### [facility] ([id number]) [address], [address] [place] [address] Chloride [Moles/Vol] 105 mmol/L Normal 98-109 [facility] Comment on above: Performed By: #### C AMY PERRY, #### [facility] ([id number]) [address], [address] [place] [address] CO2 [Moles/Vol] 27 mmol/L Normal 22-32 [facility] Comment on above: Performed By: #### C AMY PERRY, #### [facility] ([id number]) [address], [address] [place] [address] Creatinine [Mass/Vol] 0.74 mg/dL Normal 0.40-1.00 [facility] Comment on above: Result Comment: METH OD TRACEABLE TO IDMS STANDARD Performed By: #### C AMY PERRY, #### [facility] ([id number]) [address], [address] [place] [address] eGFR (CKD-EPI) NON-RACE DEPENDENT >90 Normal >59 [facility] Comment on above: Result Comment: Reported eGFR is based on the CKD-EPI 2020 equation that does not use a race coefficient. Performed By: #### C AMY PERRY, #### [facility] ([id number]) [address], [address] [place] [address] Glucose [Mass/Vol] 86 mg/dL Normal 65-99 [facility] Comment on above: Performed By: #### C ORLANDO CMP, #### [facility] ([id number]) [address], [address] [place] [address] Potassium [Moles/Vol] 4.4 mmol/L Normal 3.5-5.0 [facility] Comment on above: Performed By: #### C BCA, [facility], [address]-1 #### [facility] ([id number]) [address], [address] [place] [address] Protein [Mass/Vol] 7.2 g/dL Normal 6.0-8.0 [facility] Comment on above: Performed By: #### C BCA, CMP, #### [facility] ([id number]) [address], [address] [place] [address] Sodium [Moles/Vol] 138 mmol/L Normal 134-146 [facility] Comment on above: Performed By: #### C BCA, CMP, [address]10-2 #### [facility] ([id number]) [address], [address] [place] [address] Urea nitrogen [Mass/Vol] 13 mg/dL Normal 5-23 [facility] Comment on above: Performed By: #### C BCA, [facility], [address]-6 #### [facility] ([id number]) [address], [address] [place] [address] HCG.beta subunit IA 3rd IS Q non 08-17-2023 HCG.beta subunit Qn 12 m[IU]/mL Normal [facility] Comment on above: Result Comment: NEW REFERENCE RANGE WEEKS (SINCE LMP) MIU/mL 3 WEEKS 5 - 50 4 WEEKS 5 - 426 5 WEEKS 18 - 7,340 6 WEEKS 1,080 - 56,500 7-8 WEEKS 7,650 - 229,000 9-12 WEEKS 25,700 - 288,000 13-16 WEEKS 13,300 - 254,000 17-24 WEEKS 4,060 - 165,400 25-40 WEEKS 3,640 - 117,000 MALES AND NON- FEMALES - <5 MIU/mL This test has been FDA approved for use in only. Elevated levels are not necessarily diagnostic for trophoblastic or nontrophoblastic neoplasms. Performed By: #### C OR[place]O, [facility], [address]-7 #### [facility] ([id number]) [address], [address] [place] [address] Type and screen(includes ind irect vero)on 08-17-2023 ABO A [facility] Rh Nom (Bld) Positive [facility] US PELVIC WITH TRANSVAGINALo n 08-14-2023 US PELVIC WITH TRANSVAGINAL US PELVIC WITH TRANSVAGINAL History: Follow-up spontaneous . Exam/Technique: Pelvic ultrasound (transabdominal and endovaginal) Comparison: Early obstetric ultrasound from 03/27/2019 Findings: Endometrial echoes are thickened and markedly heterogenous, measured at 20 mm. Some irregular endometrial color flow is demonstrated. Overall dimensions of the uterus are 8.0 x 5.0 x 5.7 cm. Both ovaries appear normal. The right measures 4.7 x 3.6 x 3.8 cm and the left ovary 3.4 x 1.9 x 3.0 cm. There is no free intraperitoneal fluid, and no abnormal fluid collections or additional pelvic abnormalities. IMPRESSION: Appearance of endometrium concerning for retained products of conception. No other abnormalities displayed. Finalized by Nicanor Pablo MD on 08/14/2023 1:49 PM Normal [facility] HCG.beta subunit IA 3rd IS Q non 08-08-2023 HCG.beta subunit Qn 17 m[IU]/mL Normal [facility] Comment on above: Result Comment: NEW REFERENCE RANGE WEEKS (SINCE LMP) MIU/mL 3 WEEKS 5 - 50 4 WEEKS 5 - 426 5 WEEKS 18 - 7,340 6 WEEKS 1,080 - 56,500 7-8 WEEKS 7,650 - 229,000 9-12 WEEKS 25,700 - 288,000 13-16 WEEKS 13,300 - 254,000 17-24 WEEKS 4,060 - 165,400 25-40 WEEKS 3,640 - 117,000 MALES AND NON- FEMALES - <5 MIU/mL This test has been FDA approved for use in only. Elevated levels are not necessarily diagnostic for trophoblastic or nontrophoblastic neoplasms. Performed By: #### 2 0415-6 #### [facility] ([id number]) [address] [place] [address], [address] [place] [address] HCG.beta subunit IA 3rd IS Q non 08-01-2023 HCG.beta subunit Qn 24 m[IU]/mL Normal [facility] Comment on above: Result Comment: NEW REFERENCE RANGE WEEKS (SINCE LMP) MIU/mL 3 WEEKS 5 - 50 4 WEEKS 5 - 426 5 WEEKS 18 - 7,340 6 WEEKS 1,080 - 56,500 7-8 WEEKS 7,650 - 229,000 9-12 WEEKS 25,700 - 288,000 13-16 WEEKS 13,300 - 254,000 17-24 WEEKS 4,060 - 165,400 25-40 WEEKS 3,640 - 117,000 MALES AND NON- FEMALES - <5 MIU/mL This test has been FDA approved for use in only. Elevated levels are not necessarily diagnostic for trophoblastic or nontrophoblastic neoplasms. Performed By: #### 2 0415-6 #### [facility] ([id number]) [address] [place] [address], [address] [place] [address] HCG.beta subunit IA 3rd IS Q non 07-25-2023 HCG.beta subunit Qn 31 m[IU]/mL Normal [facility] Comment on above: Result Comment: NEW REFERENCE RANGE WEEKS (SINCE LMP) MIU/mL 3 WEEKS 5 - 50 4 WEEKS 5 - 426 5 WEEKS 18 - 7,340 6 WEEKS 1,080 - 56,500 7-8 WEEKS 7,650 - 229,000 9-12 WEEKS 25,700 - 288,000 13-16 WEEKS 13,300 - 254,000 17-24 WEEKS 4,060 - 165,400 25-40 WEEKS 3,640 - 117,000 MALES AND NON- FEMALES - <5 MIU/mL This test has been FDA approved for use in only. Elevated levels are not necessarily diagnostic for trophoblastic or nontrophoblastic neoplasms. Performed By: #### 2 0415-6 #### [facility] ([id number]) [address], [address] [place] [address] HCG.beta subunit IA 3rd IS Q non 07-18-2023 HCG.beta subunit Qn 39 m[IU]/mL Normal [facility] Comment on above: Result Comment: NEW REFERENCE RANGE WEEKS (SINCE LMP) MIU/mL 3 WEEKS 5 - 50 4 WEEKS 5 - 426 5 WEEKS 18 - 7,340 6 WEEKS 1,080 - 56,500 7-8 WEEKS 7,650 - 229,000 9-12 WEEKS 25,700 - 288,000 13-16 WEEKS 13,300 - 254,000 17-24 WEEKS 4,060 - 165,400 25-40 WEEKS 3,640 - 117,000 MALES AND NON- FEMALES - <5 MIU/mL This test has been FDA approved for use in only. Elevated levels are not necessarily diagnostic for trophoblastic or nontrophoblastic neoplasms. Performed By: #### 2 0415-6 #### [facility] ([id number]) [address], [address] [place] [address] HCG.beta subunit IA 3rd IS Q non 07-10-2023 HCG.beta subunit Qn 47 m[IU]/mL Normal [facility] Comment on above: Result Comment: NEW REFERENCE RANGE WEEKS (SINCE LMP) MIU/mL 3 WEEKS 5 - 50 4 WEEKS 5 - 426 5 WEEKS 18 - 7,340 6 WEEKS 1,080 - 56,500 7-8 WEEKS 7,650 - 229,000 9-12 WEEKS 25,700 - 288,000 13-16 WEEKS 13,300 - 254,000 17-24 WEEKS 4,060 - 165,400 25-40 WEEKS 3,640 - 117,000 MALES AND NON- FEMALES - <5 MIU/mL This test has been FDA approved for use in only. Elevated levels are not necessarily diagnostic for trophoblastic or nontrophoblastic neoplasms. Performed By: #### 2 0415-6 #### [facility] ([id number]) [address] [place] [address], [address] [place] [address] COVID Quick Testingon 2020 Result Negative [facility] Other Quick Strepon 05-02-2021 S. pyogenes Org specific cx Ql (Throat) Negative [facility] Other Quick Strep [facility] Other Vital Signs Date Time Vital Sign Value Performing Clinician Facility 08-01-2023 10:34-0500 Body mass index (BMI) [Ratio] 30.85 kg/m2 [facility] Work Phone: [facility] 08-01-2023 10:34-0500 Body weight 89.36 kg [facility] Work Phone: [facility] 08-01-2023 10:34-0500 Diastolic blood pressure 48 mm[Hg] [facility] Work Phone: [facility] 08-01-2023 10:34-0500 Systolic blood pressure 100 mm[Hg] [facility] Work Phone: [facility] 05-02-2021 12:00-0400 Body height 170.18 cm Sheryl Silva Other [facility] Other 05-02-2021 12:00-0400 Body mass index (BMI) [Ratio] 32.42 kg/m2 Sheryl Silva Other [facility] Other 05-02-2021 12:00-0400 Body temperature 97.5 [degF] Sheryl Silva Other [facility] Other 05-02-2021 12:00-0400 Body weight 93.9 kg Sheryl Silva Other [facility] Other 05-02-2021 12:00-0400 SaO2% (BldA) [Mass fraction] 99 % Sheryl Silva Other [facility] Other Encounters Encounter Date Encounter Type Care Provider Facility Start: 08-18-2023 Telephone encounter Lauren ontiveros MD Work Phone: [facility] Start: 08-18-2023 End: 08-18-2023 Evaluation and management of inpatient [facility] Start: 08-18-2023 End: 08-18-2023 Evaluation and management of inpatient [facility] Start: 08-17-2023 Encounter for other preprocedural examination [facility] Start: 08-17-2023 End: 08-18-2023 Orders Only Deven Valadez [facility]ne[facility] Comment on above: Missed (Anabelle emanuel Dx); Pre-op testing Start: 08-17-2023 Patient encounter status Deven higgins [facility] Start: 08-15-2023 Orders Only Stacia Baker DO Work Phone: [facility]ne[facility] Comment on above: SAB (spontaneous abo rtion) (Primary Dx) Start: 08-14-2023 End: 08-15-2023 ambulatory STACIA BAKER [facility] Start: 08-09-2023 Orders Only Shahana Muro [employer] Work Phone: [facility] Comment on above: SAB (spontaneous abo rtion) (Primary Dx) Start: 08-08-2023 End: 08-09-2023 ambulatory SHAHANA MURO [facility] Start: 08-03-2023 Orders Only Stacia Baker DO Work Phone: [facility]Gynecology Comment on above: Acute bilateral low back pain without sciatica (Primary Dx) Start: 08-01-2023 End: 08-02-2023 ambulatory STACIA BAKER [facility] Start: 08-01-2023 End: 08-01-2023 Office outpatient visit 15 minutes Stacia Baker DO Work Phone: [facility] Comment on above: SAB (spontaneous abo rtion) (Primary Dx); Low back pain, unspecified back pain laterality, unspecified chronicity, unspecified whether sciatica present Start: 07-28-2023 Telephone encounter Deven Lau MA [facility] Start: 07-25-2023 End: 07-26-2023 ambulatory [facility] Start: 07-18-2023 End: 07-19-2023 ambulatory [facility] Start: 07-10-2023 End: 07-11-[address] [facility] Start: 05-02-2021 Office outpatient vi sit 15 minutes Sheryl Silva [facility] Start: 02-22-2020 End: 02-23-[address] NONE LISTED REQUEST Facility: Procedures Date Procedure Procedure Detail Performing Clinician Start: 08-17-2023 Antibody screen Deven Valadez MEASUREMENT TECHNICIAN Start: 08-01-2023 Follow-up visit Follow-up STACIA BAKER Start: 04-12-2023 Adult depression screening assessment Deven Valadez MEASUREMENT TECHNICIAN Start: 03-02-2020 Microscopic observat ion [Identifier] in Cervix by Cyto stain Deven Valadez MEASUREMENT TECHNICIAN Start: 07-31-2019 H/O: section S/P s ection Deven Valadez MEASUREMENT TECHNICIAN Plan of Treatment Date Care Activity Detail Author Start: 08-18-2024 Adult BMI Screening Adult BMI Screen ing [facility] Start: 08-18-2024 Tobacco Screening Tobacco Screening [facility] Start: 08-17-2024 Tobacco Screening Tobacco Screening [facility] Start: 08-01-2024 Adult BMI Screening Adult BMI Screen ing [facility] Start: 08-01-2024 Tobacco Screening Tobacco Screening [facility] Start: 07-04-2024 Adult BMI Screening Adult BMI Screen ing [facility] Start: 07-04-2024 Tobacco Screening Tobacco Screening [facility] Start: 04-12-2024 Depression Screening Depression Scre ening [facility] Start: 08-18-2023 End: 08-18-2023 Admission to same day surgery center 08/18/2023 9:00 AM EST - 08/18/2023 10:00 AM EST Surgery [facility] [address] [place] [id number] Lauren Maldonado MD [address] [place] [address] DILATION CURETTAGE SUCTION [77252 (CPT )] [facility] Comment on above: DILATION CURETTAGE S UCTION [30759 (CPT )] Start: 08-18-2023 End: 08-18-2023 Anesthesia consultation 08/18/2023 9:00 AM EST Anesthesia Event [facility] [address] [place] [id number] Rain Box MD [address] [place] [address] [facility] Start: 08-18-2023 End: 08-18-2023 Dilation & curettage dx&/ther nonobstetric DILATION CURETTAGE SUCTION missed AB, retained products of conception 08/18/2023 9:00 AM EST [facility] Start: 08-18-2023 Subsequent hospital visit by physician 08/18/2023 9:00 AM EST Hospital Encounter [facility] [address] [facility] [place] [phone] Lauren Maldonado MD [address] [place] [address] [facility] Start: 08-17-2023 End: 08-17-2023 Telemedicine consultation with patient 08/17/2023 10:00 AM EST Telemedicine [facility] [address] [place] [address] Stacia Baker DO [facility] [place], [place] [id number] [facility] Start: 08-16-2023 End: 08-09-2024 hCG, quantitative, hCG, quantitative, Lab Routine SAB (spontaneous ) Expected: 08/16/2023 (Approximate), Expires: 08/09/2024 [facility] Work Phone: Comment on above: Expected: 08/16/2023 (Approximate), Expires: 08/09/2024 Start: 08-15-2023 End: 08-15-2023 Patient encounter procedure 08/15/2023 1:30 PM EST Office Visit [facility] [address] [id number] Stacia Baker DO [address] [place], [place] [id number] [facility] Start: 08-01-2023 End: 08-01-2024 US Pelvis transabdominal and transvaginal Ultrasound pelvic with transvaginal Imaging Routine SAB (spontaneous ) Low back pain, unspecified back pain laterality, unspecified chronicity, unspecified whether sciatica present Expected: 08/01/2023, Expires: 08/01/2024 [facility] Work Phone: Comment on above: Expected: 08/01/2023 , Expires: 08/01/2024 Start: 08-01-2023 End: 08-01-2023 Patient encounter procedure 08/01/2023 10:30 AM EST Office Visit [facility] [address] [place] [address] Stacia Baker DO [address] [place], [place] [id number] [facility] Start: 04-11-2023 Adult BMI Follow Up Plan Adult BMI Follow Up Plan [facility] Start: 03-24-2023 Influenza vaccination Influenza Vacc ine [facility] Start: 03-02-2023 Screening for malign ant neoplasm of cervix Pap Smear [facility] Start: 2009 DTaP,Tdap and Td Vac cines (1 - Tdap) DTaP,Tdap and Td Vaccines (1 - Tdap) [facility] Start: 1990 Tobacco Counseling Tobacco Counselin g [facility] End: 08-15-2024 CBC W Auto Differential panel - Blood CBC auto differential Lab Routine SAB (spontaneous ) 1 Occurrences starting 08/15/2023 until 08/15/2024 [facility] Work Phone: Comment on above: 1 Occurrences starti ng 08/15/2023 until 08/15/2024 End: 08-15-2024 hCG, quantitative, hCG, quantitative, Lab Routine SAB (spontaneous ) 1 Occurrences starting 08/15/2023 until 08/15/2024 [facility] Comment on above: 1 Occurrences starti ng 08/15/2023 until 08/15/2024 Immunizations Immunization Date Immunization Notes Care Provider Fa toshai NEGATED: Highlighted row has not occurred!07-30-2019 measles, mumps and rubella virus vaccine Deven Valadez [facility] Comment on above: Deferred: - IMMUNE Deferred: Other - IM MUNE NEGATED: Highlighted row has not occurred!07-30-2019 tetanus toxoid, reduced diphtheria toxoid, and acellular pertussis vaccine, adsorbed Deven Valadez CMA [facility] Payers Date Payer Category Payer Private Health Insurance [facility] [id number] 2022-Present [phone] [address] [place] [address] [id number] 2022 Private Health Insurance [id number] 1990 Unknown [id number] [id number]. 2.593 1990 Unknown [id number] 2.16.840.1.940000.3.579. 2.1286 1990 Unknown [id number] 2.16.840.1.441049.3.579. 2.1285 1990 Unknown [id number] 2.16.840.1.190945.3.579. 2.1286 1990 Unknown [id number] 2.16.840.1.346670.3.579. 2.1285 1990 Unknown [id number] 2.16.840.1.342132.3.579. 2.1286 1990 Unknown [id number] 2.16.840.1.366004.3.579. 2.1285 1990 Unknown [id number] 2.16.840.1.468155.3.579. 2.1286 1990 Unknown [id number] 2.16.840.1.789867.3.579. 2.1285 1990 Unknown [id number] 2.16.840.1.548981.3.579. 2.1285 1990 Unknown [id number] 2.16.840.1.656322.3.579. 2.1286 1990 Unknown [id number] 2.16.840.1.332605.3.579. 2.1286 1990 Unknown [id number] 2.16.840.1.588082.3.579. 2.1286 1990 Unknown [id number] 2.16.840.1.776896.3.579. 2.1286 1990 Unknown [id number] 2.16.840.1.793726.3.579. 2.1286 1990 Unknown [id number] 2.16.840.1.722144.3.579. 2.1286 1959 Private Health Insurance [id number] Social History Date Type Detail Facility Start: 09-03-2020 End: 07-04-2023 Sex Assigned At [facility] Start: 03-30-2021 Tobacco smoking stat [facility] Smokes tobacco daily [facility] End: 06-23-2023 History of tobacco use Cigarette Smoker [facility] Start: 09-03-2020 End: 03-30-2021 Cigarettes smoked current (pack per day) - Reported 0.5 [facility] Start: 03-30-2021 End: 08-01-2023 Tobacco use and exposure Smokeless tobacco non-user [facility] Start: 07-04-2023 End: 08-18-2023 Alcohol intake Ex-drinker (finding) [facility] Adolescent depressio n screening assessment 5 [facility] The thought of harmi ng myself has occurred to me Never [facility] Start: 1990 Sex Assigned At Female P [facility] Start: 07-26-2021 Gender identity Identifies as female gender (finding) [facility] Start: 07-26-2021 Sexual orientation Heterosexual (fin ding) [facility] Start: 08-01-2023 Tobacco smoking stat [facility] Ex-smoker [facility] End: 06-23-2023 History of tobacco use Current smoker [facility] Clinical Notes 05-02-2021 to 08-18-2023 Telephone Encounter - Kaylyn Rodríguez - 08/18/2023 12:48 PM ESTTelephone Encounter - Lauren Maldonado MD - 08/18/2023 12:48 PM ESTTelephone Encounter - Kaylynalex Rodríguez - 08/18/2023 12:48 PM EST Note Date & Type Note Facility 08-18-2023 Miscellaneous Notes Formattin g of this note might be different from the original. Adri at [facility] states they do not have the generic methergine prescribed for Pt. Adri states she called 2 other Pharmacies in [facility] & they do not have it either. Please send alternate medication RX to [facility]. Advised Adri at [facility] Pt would be called when new RX is sent. IS NONE DISREGARD AT THIS POINT THANK YOU Pt left VM on 08/18 at 4:22pm, but phones were not forwarded yet. Have tried calling Pt 3 times this morning, but no answer and no VM set up. Pt called in stating that she still was unable to diamond picker medication from Pharmacy and wanted to know what she was to do. Per Dr Maldonado since it has already been a few days since her surgery there is no need to start the medication now. Advised pt that if she is bleeding through a pad an hour or worse than her worst period or is having severe pain she should present to ED for evaluation. Pt was agreeable to this information. documented in this encounter [facility] 08-18-2023 Telephone encount er Note Adri at [facility] states they do not have the generic methergine prescribed for Pt. Adri states she called 2 other Pharmacies in town & they do not have it either. Please send alternate medication RX to [facility]. Advised Adri at [facility] Pt would be called when new RX is sent. [facility] 08-18-2023 Telephone encount er Note IS NONE DISREGARD AT THIS POINT THANK YOU [facility] 08-18-2023 Telephone encount er Note Pt left VM on 08/18 at 4:22pm, but phones were not forwarded yet. Have tried calling Pt 3 times this morning, but no answer and no VM set up. [facility] 08-18-2023 Telephone encount er Note Pt called in stating that she still was unable to diamond picker medication from Pharmacy and wanted to know what she was to do. Per Dr Maldonado since it has already been a few days since her surgery there is no need to start the medication now. Advised pt that if she is bleeding through a pad an hour or worse than her worst period or is having severe pain she should present to ED for evaluation. Pt was agreeable to this information. [facility] 08-17-2023 Miscellaneous Notes Formattin g of this note might be different from the original. Per Dr. Baker patient needs to be schedule for surgery with her or Dr. Maldonado for a missed ab & retained products of conception. Sugar talked to Dr. Maldonado & Dr. 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 Dr. Maldonado would like a CBC & Type & Screen ordered for the patient and the patient to be NPO after midnight. Surgery scheduled with Dagmar in surgery scheduling for 08/18/23 at 9:00am with hospital arrival at 7:00am. Patient has been notified of surgery dates & times. The patient just left the lab from having her labs that Dr. Baker ordered drawn. Deven checked with the lab & they cannot add the type & screen on. Deven talked to the patient and the patient will go back to the lab to have the type & screen drawn. documented in this encounter [facility] 08-17-2023 Telephone encount er Note Per Dr. Baker patient needs to be schedule for surgery with her or Dr. Maldonado for a missed ab & retained products of conception. Sugar talked to Dr. Maldonado & Dr. 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 Dr. Maldonado would like a CBC & Type & Screen ordered for the patient and the patient to be NPO after midnight. Surgery scheduled with Dagmar in surgery scheduling for 08/18/23 at 9:00am with hospital arrival at 7:00am. Patient has been notified of surgery dates & times. The patient just left the lab from having her labs that Dr. Baker ordered drawn. Deven checked with the lab & they cannot add the type & screen on. Deven talked to the patient and the patient will go back to the lab to have the type & screen drawn. [facility] 08-17-2023 History of Presen t illness Narrative Ordered Type and Screen per Dr Maldonado documented in this encounter [facility] 08-17-2023 Miscellaneous Notes Addended by: DEVEN VALADEZ on: 08/17/2023 01:20 PM Modules accepted: Orders documented in this encounter [facility] 08-17-2023 Note Addended by: DEVEN VALADEZ on: 08/17/2023 01:20 PM Modules accepted: Orders [facility] 08-15-2023 History of Presen t illness Narrative HCG and CBC ordered documented in this encounter [facility] 08-09-2023 History of Presen t illness Narrative Order placed for hCG as we're trending after SAB. Pt. Notified via [email or web address] and has been seen in the office in the last week by Dr. Baker. RY Bradley 08/09/23 0846 documented in this encounter [facility] 08-03-2023 History of Presen t illness Narrative Prescription for Motrin placed documented in this encounter [facility] 08-03-2023 Miscellaneous Notes Formattin g of this note might be different from the original. Pt states she was told at her appointment on that a RX for Motrin would be sent to [facility]. Pt went to [facility] today & there wasn't a RX for her to diamond picker. Please advise. Thank you Unable to reach Pt. Advised Pt RX was sent. documented in this encounter [facility] 08-03-2023 Telephone encount er Note Pt states she was told at her appointment on that a RX for Motrin would be sent to [facility]. Pt went to [facility] today & there wasn't a RX for her to diamond picker. Please advise. Thank you [facility] 08-03-2023 Telephone encount er Note Unable to reach Pt. [facility] 08-03-2023 Telephone encount er Note Advised Pt [facility] History of Presen t illness Narrative Subjective Patient ID: Sandy Edwards is a pleasant 33 y.o. female who presents today for follow-up of spontaneous . Patient had an SAB in early June. She was seen and treated initially at [place] emergency room, and has been following here with Dr. Maldonado since. She is afebrile. She is eating, drinking, passing stool and flatus without difficulties. She has had a few days of spotting and low back pain. She and her partner are here today. She is unsure if they want to attempt to achieve again or if they want to restart control. This was unintended and was the result of losing her control pills for 4 days in the fall. Patient's last HCG was 31. She is going to have another level drawn today. She is unsure, but believes she was told that they are may be some tissue still in her uterus at [place]. This was 1 month ago. She has not had follow-up ultrasound since then. Chief Complaint: Follow-up SAB Menstrual History: OB History 2 Para 2 Term 2 AB Living 2 SAB IAB Ectopic Multiple 0 Live Births 2 No LMP recorded (lmp unknown). The following portions of the patient's history were reviewed and updated as appropriate: allergies, current medications, past family history, past medical history, past social history, past surgical history, problem list, and medication reconciliation was completed including current medication and post discharge medication. Review of Systems Constitutional: negative Respiratory: negative Cardiovascular: negative Gastrointestinal: negative Genitourinary: Follow-up SAB Behavioral/Psych: negative Objective BP 100/48 Wt 89.4 kg (197 lb) LMP (LMP Unknown) BMI 30.85 kg/m General: alert, appears stated age, and cooperative Heart: regular rate and rhythm, S1, S2 normal, no murmur, click, rub or gallop Lungs: clear to auscultation bilaterally Abdomen: soft, non-tender, without masses or organomegaly Assessment 1. SAB (spontaneous ) 2. Low back pain, unspecified back pain laterality, unspecified chronicity, unspecified whether sciatica present Plan 1. Discussed control options with patient and her partner today. They are going to discuss at home and let us know with her next follow up if they would like to proceed with control or intend to attempt again. 2. Patient have quantitative hCG drawn today 3. Pelvic ultrasound ordered as patient states she is previously told that she may have retained products of conception. documented in this encounter [facility] 07-28-2023 Miscellaneous Notes Formattin g of this note might be different from the original. Called and left vm for pt to call office back regarding her HCG that was done 07/25/23. Pt will need to have more drawn until they are less than 5 documented in this encounter [facility] 07-28-2023 Telephone encount er Note Called and left vm for pt to call office back regarding her HCG that was done 07/25/23. Pt will need to have more drawn until they are less than 5 [facility] 05-02-2021 Evaluation note Encounter Date Diagnosis Assessment Notes Apr, Contact with and (suspected) exposure to other viral communicable diseases (ICD-10 - Z20.828) Today test was performed in office. Results are currently negative. That does not mean that you will not develop COVID or do not currently have a low viral count of COVID. The rapid test works best if symptoms have been over 72 hours and the results can vary if you are asymptomatic There is a higher chance of false negative results to occur if testing is performed too soon. It is recommended that even if results are negative and you have been exposed to someone that has COVID that you follow current CDC recommendations . These can be found at CDC.GOV. Follow up with primary care provider if symptoms persist or do not improve Apr, Sore throat (ICD-10 - J02.9) Apr, Other Additional time spent conducting pre-visit phone call, screening for symptoms, instructions on social distancing, application and removal of PPE, and cleaning of examination room, equipment and supplies was preformed. Patient education given for testing methodology and results. Patient care instructions given in writting by [facility] document. [employer] Other Evaluation note* Diagnosis SAB (spontaneous )- Primary Unspecified spontaneous without mention of complication Low back pain, unspecified back pain laterality, unspecified chronicity, unspecified whether sciatica present documented in this encounter [facility]* Diagnosis Acute bilateral low back pain without sciatica- Primary documented in this encounter [facility]* Diagnosis SAB (spontaneous )- Primary Unspecified spontaneous without mention of complication documented in this encounter [facility]* Diagnosis SAB (spontaneous )- Primary Unspecified spontaneous without mention of complication documented in this encounter [facility]* Diagnosis Missed - Primary Pre-op testing Unspecified pre-operative examination documented in this encounter [facility] general Narrative - Reported* Type Description Date Surgical History tonsillectomy and adenoidectomy Surgical History C section Surgical History cholecystectomy [employer] Other InstructionsNot on filedocumented in this encounter [facility] on filedocumented in this encounter [facility] filedocumented in this encounter [facility] on filedocumented in this encounter [facility] on filedocumented in this encounter [facility] [employer] [facility] Summary Purpose Family History No Family History Records FoundNo Family History Records FoundNo Family History Records Found Advance Directives Latest Code Status on File Code Status Date Activated Date Inactivated Comments Full Code 07/29/2019 8:47 PM 07/31/2019 9:08 PM Code Status History Code Status Date Activated Date Inactivated Comments Full Code 07/29/2019 8:41 AM 07/29/2019 8:47 PM Additional Source Comments INFORMATION SOURCE (unrecogn ized section and content) DATE CREATED AUTHOR 10/05/2021 [facility] DATE CREATED AUTHOR AUTHOR'S ORGANIZ ATION 08/20/2023 [facility] DATE CREATED AUTHOR AUTHOR'S ORGANIZ ATION 08/20/[address] [facility] REASON FOR VISIT (unrecogniz ed section and content) Reason Comments Follow-up SAB Care Teams (unrecognized sec tion and content) Real Estate Coordinator Relationship Specialty Start Date End Date Shagufta Nelson DO [address] [place] [id number] PCP - General Family Medicine 11/01/22 Real Estate Coordinator Relationship Specialty Start Date End Date Shagufta Nelson DO [address] [place] [address] PCP - General Family Medicine 11/01/22 Real Estate Coordinator Relationship Specialty Start Date End Date Shagufta Nelson DO [address] [place] [id number] PCP - General Family Medicine 11/01/22 Real Estate Coordinator Relationship Specialty Start Date End Date Shagufta Nelson DO [address] [place] [address] PCP - General Family Medicine 11/01/22 Real Estate Coordinator Relationship Specialty Start Date End Date Shagufta Nelson DO [address] [place] [address] PCP - General Family Medicine 11/01/22 FOR RECORDS PERTAINING TO PATIENTS WHO ARE OR HAVE BEEN ENROLLED IN A CHEMICAL DEPENDENCY/SUBSTANCEABUSE PROGRAM, SOME INFORMATION MAY BE OMITTED. This clinical summary was aggregated from multiple sources. Caution should be exercised in using it in the provision of clinical care. This summary normalizes information from multiple sources, and as a consequence, information in this document may materially change the coding, format and clinical context of patient data. In addition, data may be omitted in some cases. CLINICAL DECISIONS SHOULD BE BASED ON THE PRIMARY CLINICAL RECORDS. [facility] [facility]. provides no warranty or guarantee of the accuracy or completeness of information in this document.
--- NOTE | 2023-08-24 21:29 | US_ITS ---
The [address] [address] Patient Name: JUANJOSE GERONIMO MRN: [id number] date: 1990 Sex: F Assigned Patient Location: ER Current Patient Location: ER Accession/Order Number: [id number] Exam Date: 08/24/2023 21:45 Report Date: 08/24/2023 22:51 At the request of: HUNG FINN Procedure: US pelvis transvaginal EXAM: US pelvis transvaginal HISTORY: vag bleeding after D C post delivery COMPARISON: None. TECHNIQUE: Real time pelvic ultrasound examination was performed using Duplex Doppler by transabdominal and transvaginal approaches. FINDINGS: The uterus is normal in size and echogenicity measuring 8.8 cm in length. No focal myometrial lesions are seen. Heterogeneous material is seen within the endometrial canal without definite internal blood flow. The right ovary measures 3.9 x 2.2 x 2.5 cm, and the left ovary measures 2.9 x 2.3 x 2.3 cm. Arterial and venous blood flow is seen in both ovaries. There is a suspected right ovarian follicle measuring up to 1.0 x 0.8 x 1.3 cm. There is no significant free fluid. US/US pelvis transvaginal IMPRESSION: 1. Heterogeneous material within the endometrial canal without definite internal blood flow. This could represent retained products of conception. Recommend follow-up beta hCG and serial ultrasound examinations as clinically indicated. Electronically authenticated by: Omer GOMES Date: 08/24/2023 22:51
--- NOTE | 2023-08-24 21:31 | ED.GENADUL1 ---
Documented by User: ERICKA Lane 08/24/23 22:21 HPI - General Adult General Chief complaint: Urogenital-Female Stated complaint: d/c last week, bleeding heavy, pain Time Seen by Provider: 08/24/23 21:17 Source: patient Mode of arrival: walk-in History of Present Illness HPI narrative: 33-year-old female presents the emergency department with significant other with complaint of increased vaginal bleeding, left flank pain. Patient with history of D and C at [facility] this past Monday status post miscarriage. She states she was told to present to the emergency department for any worsening of her bleeding, abdominal discomfort. Patient is having some mid, lower abdominal cramping. States flank pain has been since the D and C, but worsened today after she lifted some clothes. States she is also noticing some blood in her urine, clots. Denies fever, dysuria. Quality: cramping Severity: moderate Timing: since Monday, worsening Context: Normal setting and activity Modifying factors: none Associated symptoms: As above Related Data Home Medications Medication Instructions Recorded Confirmed doxycycline hyclate 100 mg capsule 100 mg PO Q12H 08/24/23 08/24/23 Allergies Allergy/AdvReac Type Severity Reaction Status Date / Time amoxicillin AdvReac Mild Rash Verified 08/24/23 20:26 Review of Systems ROS Narrative CONST: Denies any fever, chills HENT: Denies any congestion, sore throat RESP: Denies any cough, shortness of breath CV: Denies any chest pain, peripheral edema GI: +abd pain, cramping.? Denies any nausea, vomiting, diarrhea : + flank pain, hematuria, vaginal bleeding. MS: Denies any back pain, myalgias SKIN: Denies any color change, rash NEURO: Denies numbness, weakness PSYCHIATRIC: Denies confusion, agitation PFSH PFSH Social History Smoking status: Current every day smoker Exam Narrative Exam Narrative: Vital signs reviewed Nurses notes noted CONST: Nontoxic, well appearing, well nourished, in no distress.? No diaphoresis.?? HENT: normocephalic, atraumatic, moist mucous membrane, no abnormalities of the nose noted, hearing normal EYES: normal appearing conjunctiva, no apparent discharge bilat NECK: normal appearance CV: normal rate, regular rhythm, no murmur RESP: normal effort, speaking in complete sentences. Lung sounds clear and equal bilat.? No wheezes, rales, rhonchi GI: normal bowel sounds, soft, no distension, + mild, mid, lower abd tenderness. No rebound, guarding : + bilat CVA tenderness, left worse than right MS: no edema, tenderness SKIN: no pallor NEURO: A&Ox 3, no focal findings PSYCH: normal mood, affect Constitutional Vital Signs, click to edit/add: Last Vital Signs Temp 97.7 F 08/24/23 20:20 Pulse 82 08/24/23 20:20 Resp 18 08/24/23 20:20 BP 114/80 08/24/23 20:20 Pulse Ox 100 08/24/23 20:20 O2 Del Method Room Air 08/24/23 20:20 Course Reevaluation(s) Reevaluation #1: Patient reports that she is feeling better after fluids and medications. We'll attempt by mouth challenge. Time: 21:59 Vital Signs Vital signs: Vital Signs Temperature 97.7 F 08/24/23 20:20 Pulse Rate 82 08/24/23 20:20 Respiratory Rate 18 08/24/23 20:20 Blood Pressure 114/80 08/24/23 20:20 Pulse Oximetry 100 08/24/23 20:20 Oxygen Delivery Method Room Air 08/24/23 20:20 Temperature 97.7 F 08/24/23 20:20 Pulse Rate 82 08/24/23 20:20 Respiratory Rate 18 08/24/23 20:20 Blood Pressure 114/80 08/24/23 20:20 Pulse Oximetry 100 08/24/23 20:20 Oxygen Delivery Method Room Air 08/24/23 20:20 Medical Decision Making Lab Data Labs: Lab Results 08/24/23 Range/Units 21:45 WBC 8.0 (4.0-11.0) 10^3/uL RBC 3.60 L (4.20-5.40) 10^6/uL Hgb 10.8 L (12.0-16.0) g/dL Hct 33.4 L (36.0-48.0) % MCV 92.8 (81.0-99.0) fL MCH 30.0 (26.7-34.0) pg MCHC 32.3 (29.9-35.2) g/dL RDW 13.2 (11.0-15.0) % Plt Count 228 (150-450) 10^3/uL MPV 10.1 (9.5-13.5) fL Neut % (Auto) 58.7 (43.0-75.0) % Lymph % (Auto) 31.8 (20.5-60.0) % Hendry % (Auto) 6.4 (1.7-12.0) % Eos % (Auto) 2.2 (0.9-7.0) % Baso % (Auto) 0.5 (0.2-2.0) % Neut # (Auto) 4.7 (1.4-6.5) 10^3/uL Lymph # (Auto) 2.6 (1.2-3.8) 10^3/uL Hendry # (Auto) 0.5 (0.3-0.8) 10^3/uL Eos # (Auto) 0.2 (0.0-0.7) 10^3/uL Baso # (Auto) 0.0 (0.0-0.1) 10^3/uL Abs Immat Gran (auto) 0.03 (0.00-0.03) 10^3/uL Imm/Tot Granulo (auto) 0.4 (0.0-0.5) % Sodium 140 (136-145) mmol/L Potassium 4.4 (3.5-5.1) mmol/L Chloride 109 H (98-107) mmol/L Carbon Dioxide 27.3 (21.0-32.0) mmol/L Anion Gap 8.1 BUN 12.0 (7.0-18.0) mg/dL Creatinine 0.74 (0.55-1.02) mg/dL Est GFR ( Amer) >60 (>=60) Est GFR (Non-Af Amer) >60 (>=60) BUN/Creatinine Ratio 16.2 Glucose 92 (74-106) mg/dL Calcium 8.5 (8.5-10.1) mg/dL Magnesium 1.9 (1.8-2.4) mg/dL Total Bilirubin 0.2 (0.2-1.0) mg/dL AST 13 L (15-37) U/L ALT 26 (14-59) U/L Alkaline Phosphatase 57 (46-116) U/L Total Protein 6.8 (6.4-8.2) g/dL Albumin 3.4 (3.4-5.0) g/dL Globulin 3.4 g/dL Albumin/Globulin Ratio 1.0 Imaging Data us pelvis: Radiologist's impression: ITS Impressions Transvaginal US 08/24/23 21:29 IMPRESSION: 1. Heterogeneous material within the endometrial canal without definite internal blood flow. This could represent retained products of conception. Recommend follow-up beta hCG and serial ultrasound examinations as clinically indicated. Electronically authenticated by: Omer GOMES Date: 08/24/2023 22:51 Discharge Plan Discharge Chief Complaint: Urogenital-Female Clinical Impression: Retained products of conception, Acute flank pain, Abnormal vaginal bleeding, History of dilatation and curettage Patient Disposition: Home, Self-Care Time of Disposition Decision: 23:06 Prescriptions / Home Meds: No Action doxycycline hyclate 100 mg capsule 100 mg PO Q12H Instructions: Abnormal (Dysfunctional) Uterine Bleeding (ED), Flank Pain (ED) Stand Alone Forms: Portal Instructions Referrals: Shagufta Heredia [Primary Care Provider] - 1 week Abhishek Keith DO [Physician] - As soon as possible Documented by User: Elver Arguelles 08/24/23 23:13 HPI - General Adult General Chief complaint: Urogenital-Female Stated complaint: d/c last week, bleeding heavy, pain Time Seen by Provider: 08/24/23 21:17 Related Data Home Medications Medication Instructions Recorded Confirmed doxycycline hyclate 100 mg capsule 100 mg PO Q12H 08/24/23 08/24/23 Allergies Allergy/AdvReac Type Severity Reaction Status Date / Time amoxicillin AdvReac Mild Rash Verified 08/24/23 20:26 PFSH PFSH Social History Smoking status: Current every day smoker Exam Constitutional Vital Signs, click to edit/add: Last Vital Signs Temp 97.7 F 08/24/23 20:20 Pulse 82 08/24/23 20:20 Resp 18 08/24/23 20:20 BP 114/80 08/24/23 20:20 Pulse Ox 100 08/24/23 20:20 O2 Del Method Room Air 08/24/23 20:20 Course Vital Signs Vital signs: Vital Signs Temperature 97.7 F 08/24/23 20:20 Pulse Rate 82 08/24/23 20:20 Respiratory Rate 18 08/24/23 20:20 Blood Pressure 114/80 08/24/23 20:20 Pulse Oximetry 100 08/24/23 20:20 Oxygen Delivery Method Room Air 08/24/23 20:20 Temperature 97.7 F 08/24/23 20:20 Pulse Rate 82 08/24/23 20:20 Respiratory Rate 18 08/24/23 20:20 Blood Pressure 114/80 08/24/23 20:20 Pulse Oximetry 100 08/24/23 20:20 Oxygen Delivery Method Room Air 08/24/23 20:20 Medical Decision Making MDM Narrative Medical decision making narrative: Attending physician note - I saw and examined the patient. I agree with the PA's HPI and exam findings and add the following: The patient was diagnosed with on 06/26/23 visit to this ED and then had a return visit one week later with decreased wuant at 07/03/23 and described symptoms suggesting miscarriage. She is Rh positive. She then followed up with the staff midwife group at [facility] in [place] and had serial pelvic ultrasounds at that facility. She was found to have retained products of conception and underwent D & C on 08/18/[address] at [facility]. Since then she has been persistently bleeding vaginally. Tonight, after lifting something heavy, the bleeding increased. No chest pain, shortness of breath, dizziness, syncope or near-syncope. In our ED she is afebrile, normal WBC and Hb 10.8. Unremarkable metabolic profile. US pelvis, per US tech and per radiologist, with findings concerning for RPOC. I spoke with Dr Keith by phone, finance and administration manager for [facility]. He would like to see the patient in the office and schedule out-patient US, likely as early as MondayAug 28. Patient informed of this but also instructed to return to the ED if she worsens. Lab Data Lab results reviewed: Yes I reviewed the patient's lab results Labs: Lab Results 08/24/23 Range/Units 21:45 WBC 8.0 (4.0-11.0) 10^3/uL RBC 3.60 L (4.20-5.40) 10^6/uL Hgb 10.8 L (12.0-16.0) g/dL Hct 33.4 L (36.0-48.0) % MCV 92.8 (81.0-99.0) fL MCH 30.0 (26.7-34.0) pg MCHC 32.3 (29.9-35.2) g/dL RDW 13.2 (11.0-15.0) % Plt Count 228 (150-450) 10^3/uL MPV 10.1 (9.5-13.5) fL Neut % (Auto) 58.7 (43.0-75.0) % Lymph % (Auto) 31.8 (20.5-60.0) % Hendry % (Auto) 6.4 (1.7-12.0) % Eos % (Auto) 2.2 (0.9-7.0) % Baso % (Auto) 0.5 (0.2-2.0) % Neut # (Auto) 4.7 (1.4-6.5) 10^3/uL Lymph # (Auto) 2.6 (1.2-3.8) 10^3/uL Hendry # (Auto) 0.5 (0.3-0.8) 10^3/uL Eos # (Auto) 0.2 (0.0-0.7) 10^3/uL Baso # (Auto) 0.0 (0.0-0.1) 10^3/uL Abs Immat Gran (auto) 0.03 (0.00-0.03) 10^3/uL Imm/Tot Granulo (auto) 0.4 (0.0-0.5) % Sodium 140 (136-145) mmol/L Potassium 4.4 (3.5-5.1) mmol/L Chloride 109 H (98-107) mmol/L Carbon Dioxide 27.3 (21.0-32.0) mmol/L Anion Gap 8.1 BUN 12.0 (7.0-18.0) mg/dL Creatinine 0.74 (0.55-1.02) mg/dL Est GFR ( Amer) >60 (>=60) Est GFR (Non-Af Amer) >60 (>=60) BUN/Creatinine Ratio 16.2 Glucose 92 (74-106) mg/dL Calcium 8.5 (8.5-10.1) mg/dL Magnesium 1.9 (1.8-2.4) mg/dL Total Bilirubin 0.2 (0.2-1.0) mg/dL AST 13 L (15-37) U/L ALT 26 (14-59) U/L Alkaline Phosphatase 57 (46-116) U/L Total Protein 6.8 (6.4-8.2) g/dL Albumin 3.4 (3.4-5.0) g/dL Globulin 3.4 g/dL Albumin/Globulin Ratio 1.0 Imaging Data us pelvis: Radiologist's impression: ITS Impressions Transvaginal US 08/24/23 21:29
[2023-08-24 21:51] LABS: Basophils Percent Auto 0.5 % (0.2-2.0); Eosinophils Absolute Auto 0.2 10^3/uL (0.0-0.7); Eosinophils Percent Auto 2.2 % (0.9-7.0); Hematocrit 33.4 % (36.0-48.0); Hemoglobin 10.8 g/dL (12.0-16.0); Immature Granulocytes Abs Auto 0.03 10^3/uL (0.00-0.03); Immature Granulocytes Pct Auto 0.4 % (0.0-0.5); Lymphocytes Absolute Auto 2.6 10^3/uL (1.2-3.8); Lymphocytes Percent Auto 31.8 % (20.5-60.0); Mean Corpuscular HGB Conc 32.3 g/dL (29.9-35.2); Mean Corpuscular Volume 92.8 fL (81.0-99.0); Mean Platelet Volume 10.1 fL (9.5-13.5); Monocytes Absolute Auto 0.5 10^3/uL (0.3-0.8); Monocytes Percent Auto 6.4 % (1.7-12.0); Neutrophils Absolute Auto 4.7 10^3/uL (1.4-6.5); Neutrophils Percent Auto 58.7 % (43.0-75.0); Platelet Count 228 10^3/uL (150-450); Red Cell Distribution Width 13.2 % (11.0-15.0)
--- NOTE | 2023-08-24 21:51 | PC.NURSE ---
Pt states she had a d/c at [facility] on monday with [facility]. Pt was told to return to ER for pain control or heavy bleeding per pt. Pt complains of left flank pain that started when pt was carrying laundry. States bleeding has been continuous and heavy and was unable to take medication prescribed to slow the bleeding due to pharmacy.
[2023-08-24 22:06] LABS: Alanine Aminotransferase 26 U/L (14-59); Albumin Level 3.4 g/dL (3.4-5.0); Alkaline Phosphatase 57 U/L (46-116); Anion Gap 8.1; Aspartate Amino Transferase 13 U/L (15-37); BUN Creatinine Ratio 16.2; Bilirubin Total 0.2 mg/dL (0.2-1.0); Calcium 8.5 mg/dL (8.5-10.1); Carbon Dioxide 27.3 mmol/L (21.0-32.0); Chloride 109 mmol/L (98-107); Estimated GFR (African America >60 (>=60); Estimated GFR (Non-African Ame >60 (>=60); Globulin 3.4 g/dL; Glucose 92 mg/dL (74-106); Magnesium 1.9 mg/dL (1.8-2.4); Potassium 4.4 mmol/L (3.5-5.1); Sodium 140 mmol/L (136-145); Total Protein 6.8 g/dL (6.4-8.2)
[2023-08-24] MEDS: ONDANSETRON PF 4 MG/2 ML VIAL IV (22:15)
[2023-08-24] MEDS: KETOROLAC TROMETHAMINE 30 MG/ML VIAL 15 MG IVP (22:15)
[2023-08-24] MEDS: 0.9 % SODIUM CHLORIDE 1,000 ML 999 ML IV (22:15)
--- NOTE | 2023-08-24 23:21 | PC.NURSE ---
Discussed discharge paperwork with pt. No questions or concerns. Pt verbalized understanding to follow up with Dr Inna louis. Pt ambulated off unit in stable condition.
== END 2023-08-24 23:22 | disposition home or self-care (01) ==
PROVIDERS: Physician Assistant; Emergency Provider Emergency Medicine; PCP Family Medicine
DX: O03.4 Incomplete spontaneous abortion without complication (principal); R10.9 Unspecified abdominal pain; N93.9 Abnormal uterine and vaginal bleeding, unspecified; Z98.890 Other specified postprocedural states; F17.210 Nicotine dependence, cigarettes, uncomplicated
CPT/HCPCS: 36415; 76830; 80053; 83735; 85025; 96374; 96375; 99285; J1885; J2405

== ENCOUNTER 2023-08-29 11:33 | Outpatient (OUT) | payer OTHER, SELFPAY ==
--- NOTE | 2023-08-29 11:37 | US_ITS ---
The [address] [address] Patient Name: JUANJOSE GERONIMO MRN: [facility]:[id number] date: 1990 Sex: F Assigned Patient Location: [facility] Current Patient Location: [facility] Accession/Order Number: [id number] Exam Date: 08/29/2023 11:38 Report Date: 08/29/2023 13:28 At the request of: RTACEY ABDUL Procedure: US pelvis transvaginal EXAMINATION: US pelvis transvaginal HISTORY: RULE OUT RETAINED PRODUCTS OF CONCEPTION COMPARISON: Ultrasound pelvis 08/24/2023 TECHNIQUE: Transabdominal and/or transvaginal sonographic examination was performed as indicated by examination type. FINDINGS: UTERUS: Normal size and appearance. Uterus size: 8.8 x 4.3 x 5.8 cm ENDOMETRIUM: Slightly thickened and heterogeneous. Endometrial thickness: 17 mm RIGHT OVARY: Normal size and appearance. Duplex Doppler demonstrates normal waveform and flow; resistive index 0.6. Ovary size: 3.2 x 3.0 x 2.67 m LEFT OVARY: Normal size and appearance. Duplex Doppler demonstrates normal waveform and flow; resistive index 0.6. Ovary size: 3.6 x 1.9 x 2.8 cm CUL-DE-SAC: Unremarkable. No significant free fluid. BLADDER: Unremarkable. OTHER: None. US/US pelvis transvaginal IMPRESSION: 1. No retained products of conception. Previously seen contents of cleared. 2. Heterogeneous mildly thickened endometrium likely secondary to recent . Electronically authenticated by: YOKASTA MEIER Date: 08/29/2023 13:28
--- OUTSIDE RECORDS SUMMARY | 2023-08-29 11:38 | XMS_ITS | CCD ---
Author Name Unknown Address [address] [place] [address] Organization [facility] Care Team Providers Care Job Putter Up And Ticket Preparer Name Role Phone REQUEST, DR NONE LISTED Primary Care Unavaila juventino ALDANA, DR ZACK Do Admitting Unavailable ERICKA HAWKINS Consulting Unavailable JOVAN, DR ZACK Do Attending Unavailable JUANITA WHEELER Consulting Unavailable Sheryl Silva Unavailable Rumschlag DO, Shagufta K Primary Care Provider STACIA BAKER Attending Unavailable RUMSCHLAG, SHAGUFTA K [...] Unavailable RUMSCHLAG, SHAGUFTA K Primary Care Unavailable ERICALAUREN Referring Unavailable RUMSCHLAG, SHAGUFTA K Primary Care Unavailable LAUREN MALDONADO Admitting Unavailable LAUREN MALDONADO Attending Unavailable ERICA, LAUREN Referring Unavailable SHAGUFTA NELSON Primary Care Unavailable RAIN BOX Attending Unavailable SHAGUFTA NELSON Primary Care Unavailable Allergies Allergy Classification Reported Allergen(s) Allergy Type Date of Onset Reaction(s) Facility (12 sources) Amoxicillin; Translations: [AMOXICILLIN] Drug Allergy 02-26-2021 anaphylaxis, Rash [facility] Medications Current Medications Medication Drug Class(es) Dates [...] Test Name Value Interpretation Reference Range Facility Surgical Pathologyon 024 Surgical Pathology Normal [facility] Comment on above: Result Comment: [facility] [address] [place] [address] Surgical Pathology Consultation Patient Name:JUANJOSE GERONIMO:1990 (Age: 33)Gender:FTaken:4Reported:4Physician(s):Lauren Maldonado M.D. ([phone])Copy To: Rec. #:[id number]: #[id number] Final Pathologic Diagnosis Products of conception: Abundant blood clot admixed with fragments of hemorrhagic and focally necrotic decidual tissue and secretory endometrium. Occasional immature chorionic villi identified. The findings are consistent with retained products of conception. Report Electronically Signed Out ao/08/23/2023nddilma Benton MD Interpretation performed at [address] [address], License number: [id number]. Clinical History Missed AB, retained products of conception. Gross Description Received in formalin labeled JUANPABLO, uterus Karyotype: No Aggregate measurement: 6.1 x 4.8 x 1.2 cm Placenta: No Decidua/Clot: 6.1 x 4.8 x 1.2 cm Gestational Sac: No Tissue: No Molar Tissue: No Cassettes: A-E decidua/clot (5, ss, [id number],m6) DM dm/08/18/2023O Specimen(s) Received Products of conception Fee Codes(s): 1; 80012 CBC AND AUTO DIFFon 08-17-19 24 ABSOLUTE BASOPHIL 0.0 X10E9/L Normal 0.0-0.2 [facility] Comment on above: Performed By: #### C AMY PERRY, #### [facility] ([id number]) [address] [place] [address] ABSOLUTE NEUTROPHIL 3.6 X10E9/L Normal 1.5-6.6 [facility] Comment on above: Performed By: #### C AMY PERRY, #### [facility] ([id number]) [address], [address] [place] [address] Basophils/100 WBC (Bld) 0.4 % Normal [facility] Comment on above: Performed By: #### C AMY PERRY, #### [facility] ([id number]) [address] [address] [place] [address] Eosinophils (Bld) [#/Vol] 0.1 10*3/uL Normal 0.0-0.4 [facility] Comment on above: Performed By: #### C BCA, CMP, #### [facility] ([id number]) [address], [facility] [address] [place] [address] Eosinophils/100 WBC (Bld) 1.8 % Normal [facility] Comment on above: Performed By: #### C ORLANDO, CMP, #### [facility] ([id number]) [address] [address] [place] [address] Erythrocyte distribution width (RBC) [Ratio] 13.8 % Normal 11.5-15.0 [facility] Comment on above: Performed By: #### Judi PERRY, CMP, #### [facility] ([id number]) [address] [address] [place] [address] Hematocrit (Bld) [Volume fraction] 37.7 % Normal 35-47 [facility] Comment on above: Performed By: #### Judi BCA, CMP, #### [facility] ([id number]) [address] [address] [place] [address] Hemoglobin (Bld) [Mass/Vol] 12.5 g/dL Normal 11.7-15.5 [facility] Comment on above: Performed By: #### C BCA, CMP, #### [facility] ([id number]) [address] [address] [place] [address] Lymphocytes (Bld) [#/Vol] 2.3 10*3/uL Normal 1.0-3.5 [facility] Comment on above: Performed By: #### C BCA, CMP, #### [facility] ([id number]) [address], [address] [place] [address] Lymphocytes/100 WBC (Bld) 35.7 % Normal [facility] Comment on above: Performed By: #### Judi PERRY, CMP, #### [facility] ([id number]) [address], [address] [place] [address] MCH (RBC) [Entitic mass] 29.9 pg Normal 27-34 [facility] Comment on above: Performed By: #### Judi PERRY, CMP, #### [facility] ([id number]) [address], [address] [place] [address] MCHC (RBC) [Mass/Vol] 33.2 g/dL Normal 32-36 [facility] Comment on above: Performed By: #### Judi PERRY, CMP, #### [facility] ([id number]) [address], [address] [place] [address] MCV (RBC) [Entitic vol] 90 fL Normal 80-100 [facility] Comment on above: Performed By: #### Judi PERRY, CMP, #### [facility] ([id number]) [address], [address] [place] [address] Monocytes (Bld) [#/Vol] 0.4 10*3/uL Normal 0-0.9 [facility] Comment on above: Performed By: #### Judi BCA, CMP, #### [facility] ([id number]) [address], [address] [place] [address] Monocytes/100 WBC (Bld) 5.8 % Normal [facility] Comment on above: Performed By: #### Judi BCA, CMP, #### [facility] ([id number]) [address], [address] [place] [address] Neutrophils/100 WBC (Bld) 56.3 % Normal [facility] Comment on above: Performed By: #### Judi PERRY CMP, #### [facility] ([id number]) [address], [address] [place] [address] Platelet mean volume (Bld) [Entitic vol] 8.7 fL Normal 7-12 [facility] Comment on above: Performed By: #### Judi PERRY CMP, #### [facility] ([id number]) [address] [address] [place] [address] Platelets (Bld) [#/Vol] 244 10*3/uL Normal 150-450 [facility] Comment on above: Performed By: #### Judi PERRY CMP, #### [facility] ([id number]) [address], [address] [place] [address] RBC COUNT 4.18 X10E12/L Normal 3.80-5.20 [facility] Comment on above: Performed By: #### Judi PERRY CMP, #### [facility] ([id number]) [address], [facility] [address] [place] [address] WBC (Bld) [#/Vol] 6.5 10*3/uL Normal 4.0-11.0 [facility] Comment on above: Performed By: #### Judi PERRY, CMP, #### [facility] ([id number]) [address], [address] [place] [address] COMPREHENSIVE METABOLIC PANE Cirilo 08-17-2023 Albumin [Mass/Vol] 4.5 g/dL Normal 3.2-5.3 [facility] Comment on above: Performed By: #### Judi BCA, CMP, #### [facility] ([id number]) [address], [address] [place] [address] ALP [Catalytic activity/Vol] 52 U/L Normal 39-130 [facility] Comment on above: Performed By: #### C ORLANDO, CMP, #### [facility] ([id number]) [address], [address] [place] [address] ALT [Catalytic activity/Vol] 22 U/L Normal 0-31 [facility] Comment on above: Performed By: #### C BCA, CMP, #### [facility] ([id number]) [address], [address] [place] [address] Anion gap [Moles/Vol] 6 mmol/L Normal 5-15 [facility] Comment on above: Performed By: #### C BCA, CMP, #### [facility] ([id number]) [address], [address] [place] [address] AST [Catalytic activity/Vol] 14 U/L Normal 0-41 [facility] Comment on above: Performed By: #### Judi BCA, CMP, #### [facility] ([id number]) [address], [address] [place] [address] Bilirubin [Mass/Vol] 0.4 mg/dL Normal 0.3-1.2 [facility] Comment on above: Performed By: #### C BCA, CMP, #### [facility] ([id number]) [address], [address] [place] [address] Calcium [Mass/Vol] 8.8 mg/dL Normal 8.5-10.5 [facility] Comment on above: Performed By: #### C BCA, CMP, #### [facility] ([id number]) [address], [address] [place] [address] Chloride [Moles/Vol] 105 mmol/L Normal 98-109 [facility] Comment on above: Performed By: #### C BCA, CMP, #### [facility] ([id number]) [address], [address] [place] [address] CO2 [Moles/Vol] 27 mmol/L Normal 22-32 [facility] Comment on above: Performed By: #### C ORLANDO CMP, #### [facility] ([id number]) [address], [address] [place] [address] Creatinine [Mass/Vol] 0.74 mg/dL Normal 0.40-1.00 [facility] Comment on above: Result Comment: METH OD TRACEABLE TO IDMS STANDARD Performed By: #### C ORLANDO CMP, #### [facility] ([id number]) [address], [address] [place] [address] eGFR (CKD-EPI) NON-RACE DEPENDENT >90 Normal >59 [facility] Comment on above: Result Comment: Reported eGFR is based on the CKD-EPI 2020 equation that does not use a race coefficient. Performed By: #### C ORLANDO, CMP, #### [facility] ([id number]) [address], [address] [place] [address] Glucose [Mass/Vol] 86 mg/dL Normal 65-99 [facility] Comment on above: Performed By: #### C ORLANDO CMP, #### [facility] ([id number]) [address], [address] [place] [address] Potassium [Moles/Vol] 4.4 mmol/L Normal 3.5-5.0 [facility] Comment on above: Performed By: #### C BCA, CMP, #### [facility] ([id number]) [address], [address] [place] [address] Protein [Mass/Vol] 7.2 g/dL Normal 6.0-8.0 [facility] Comment on above: Performed By: #### C BCA, CMP, #### [facility] ([id number]) [address], [address] [place] [address] Sodium [Moles/Vol] 138 mmol/L Normal 134-146 [facility] Comment on above: Performed By: #### Judi PERRY CMP, #### [facility] ([id number]) [address], [address] [place] [address] Urea nitrogen [Mass/Vol] 13 mg/dL Normal 5-23 [facility] Comment on above: Performed By: #### Judi PERRY CMP, #### [facility] ([id number]) [address], [address] [place] [address] HCG.beta subunit IA 3rd IS Q non 08-17-2023 HCG.beta subunit Qn 12 m[IU]/mL Normal [facility] Comment on above: Result Comment: NEW [...] trophoblastic or nontrophoblastic neoplasms. Performed By: #### Judi PERRY, CMP, #### [facility] ([id number]) [address], [address] [place] [address] Type and screen(includes ind irect vero)on 08-17-2023 ABO A [facility] Rh Nom (Bld) Positive [facility] [...] Pablo MD on 08/14/2023 1:[address] [facility] HCG.beta subunit IA 3rd IS Q non 08-08-2023 HCG.beta subunit Qn 17 m[IU]/mL Normal [facility] Comment on above: Result Comment: NEW [...] neoplasms. Performed By: #### 2 0415-6 #### [facility] ([id number]) [address], [address] [place] [address] HCG.beta subunit IA 3rd IS Q non 08-01-2023 HCG.beta subunit Qn 24 m[IU]/mL Normal [facility] Comment on above: Result Comment: NEW [...] neoplasms. Performed By: #### 2 0415-6 #### [facility] ([id number]) [address] [place] [address], [address] [place] [address] HCG.beta subunit IA 3rd IS Q non 07-25-2023 HCG.beta subunit Qn 31 m[IU]/mL Normal [facility] Comment on above: Result Comment: NEW [...] neoplasms. Performed By: #### 2 0415-6 #### [facility] ([id number]) [address] [place] [address], [address] [place] [address] HCG.beta subunit IA 3rd IS Q non 07-18-2023 HCG.beta subunit Qn 39 m[IU]/mL Normal [facility] Comment on above: Result Comment: NEW [...] neoplasms. Performed By: #### 2 0415-6 #### [facility] ([id number]) [address] [place] [address], [address] [place] [address] HCG.beta subunit IA 3rd IS Q non 07-10-2023 HCG.beta subunit Qn 47 m[IU]/mL Normal [facility] Comment on above: Result Comment: NEW [...] neoplasms. Performed By: #### 2 0415-6 #### [facility] ([id number]) [address] [place] [address] COVID Quick Testingon 2020 Result Negative [facility] Other Quick Strepon 05-02-2021 S. pyogenes Org specific cx Ql (Throat) Negative [facility] Other Quick Strep [facility] Other Vital Signs Date Time Vital Sign Value Performing Clinician Facility 08-01-2023 10:34-0500 Body mass index (BMI) [Ratio] 30.85 kg/m2 [facility] Work Phone: [employer] 08-01-2023 10:34-0500 Body weight 89.36 kg [facility] Work Phone: [employer] 08-01-2023 10:34-0500 Diastolic blood pressure 48 mm[Hg] [facility] Work Phone: [employer] 08-01-2023 10:34-0500 Systolic blood pressure 100 mm[Hg] [facility] Phone: [employer] 05-02-2021 12:00-0400 Body height 170.18 cm Sheryl Silva Other [facility] Other 05-02-2021 12:00-0400 Body mass index (BMI) [Ratio] 32.42 kg/m2 Sheryl Silva Other [facility] Other 05-02-2021 12:00-0400 Body temperature 97.5 [degF] Sheryl Silva Other [facility] Other 05-02-2021 12:00-0400 Body weight 93.9 kg Sheryl Silva Other [facility] Other 05-02-2021 12:00-0400 SaO2% (BldA) [Mass fraction] 99 % Sheryl Silva Other [facility] Other Encounters Encounter Date Encounter Type Care Provider Facility Start: 08-18-2023 Telephone encounter Lauren ontiveros MD Work Phone: [facility] Start: 08-18-2023 End: 08-18-2023 Evaluation and management of inpatient [place] [facility] Start: 08-18-2023 End: 08-18-2023 Evaluation and management of inpatient [facility] Start: 08-17-2023 Encounter for other preprocedural examination [facility] Start: 08-17-2023 End: 08-18-2023 Orders Only Deven Valadez [facility] Comment on above: Missed (Anabelle emanuel Dx); Pre-op testing Start: 08-17-2023 Patient encounter status Deven higgins [facility] Start: 08-15-2023 Orders Only Stacia Baker DO Work Phone: [facility] Comment on above: SAB (spontaneous abo rtion) (Primary Dx) Start: 08-14-2023 End: 08-15-[address] [facility] Start: 08-09-2023 Orders Only Shahana Muro [employer]ST[employer]CN[employer] Work Phone: [facility] Comment on above: SAB (spontaneous abo rtion) (Primary Dx) Start: 08-08-2023 End: 08-09-[address] [facility] Start: 08-03-2023 Orders Only Stacia Baker DO Work Phone: [facility] Comment on above: Acute bilateral low back pain without sciatica (Primary Dx) Start: 08-01-2023 End: 08-02-2023 ambulatory STACIA BAKER [facility] Start: 08-01-2023 End: 08-01-2023 Office outpatient visit 15 minutes Stacia Parul Simone DO Work Phone: [facility] Comment on above: SAB (spontaneous abo rtion) (Primary Dx); Low back pain, unspecified back pain laterality, unspecified chronicity, unspecified whether sciatica present Start: 07-28-2023 Telephone encounter Deven Lau MA [facility] Start: 07-25-2023 End: 07-26-2023 ambulatory [facility] Start: 07-18-2023 End: 07-19-2023 ambulatory [facility] Start: 07-10-2023 End: 07-11-2023 ambulatory [facility] Start: 05-02-2021 Office outpatient vi sit 15 minutes Sheryl Silva [facility] Start: 02-22-2020 End: 02-23-[address] NONE LISTED REQUEST Facility: Procedures Date Procedure Procedure Detail Performing Clinician Start: 08-17-2023 Antibody screen Deven Valadez EDUCATIONAL PSYCHOLOGY PROFESSOR Start: 08-01-2023 Follow-up visit Follow-up STACIA Parul BAKER Start: 04-12-2023 Adult depression screening assessment Deven Valadez EDUCATIONAL PSYCHOLOGY PROFESSOR Start: 03-02-2020 Microscopic observat ion [Identifier] in Cervix by Cyto stain Deven Valadez EDUCATIONAL PSYCHOLOGY PROFESSOR Start: 07-31-2019 H/O: section S/P s ection Deven Valadez EDUCATIONAL PSYCHOLOGY PROFESSOR Plan of Treatment Date Care Activity Detail Author Start: 08-18-2024 Adult BMI Screening Adult BMI Screen ing [facility] Start: 08-18-2024 Tobacco Screening Tobacco Screening [facility] Start: 08-17-2024 Tobacco Screening Tobacco Screening [facility] Start: 08-01-2024 Adult BMI Screening Adult BMI Screen ing [facility] Start: 08-01-2024 Tobacco Screening Tobacco Screening [facility] Start: 07-04-2024 Adult BMI Screening Adult BMI Screen ing [facility] Start: 07-04-2024 Tobacco Screening Tobacco Screening [facility] Start: 04-12-2024 Depression Screening Depression Scre ening [facility] Start: 08-18-2023 End: 08-18-2023 Admission to same day surgery center 08/18/2023 9:00 AM EST - 08/18/2023 10:00 AM EST Surgery [facility] [address] [place] [phone] Lauren Maldonado MD [address] [place], [place] [address] DILATION CURETTAGE SUCTION [01671 (CPT )] [facility] Comment on above: DILATION CURETTAGE S UCTION [63398 (CPT )] Start: 08-18-2023 End: 08-18-2023 Anesthesia consultation 08/18/2023 9:00 AM EST Anesthesia Event [facility] [address] [place] [phone] Rain Box MD [address] [place] [address] [facility] Start: 08-18-2023 End: 08-18-2023 Dilation & curettage dx&/ther nonobstetric DILATION CURETTAGE SUCTION missed AB, retained products of conception 08/18/2023 9:00 AM [facility] Start: 08-18-2023 Subsequent hospital visit by physician 08/18/2023 9:00 AM EST Hospital Encounter [facility] [address] [place] [phone] Lauren Maldonado MD [address] [place] [address] [facility] Start: 08-17-2023 End: 08-17-2023 Telemedicine consultation with patient 08/17/2023 10:00 AM EST Telemedicine [facility] [address] [place] [phone] Stacia Baker DO [facility] [place], [place] [id number] [facility] Start: 08-16-2023 End: 08-09-2024 hCG, quantitative, hCG, quantitative, Lab Routine SAB (spontaneous ) Expected: 08/16/2023 (Approximate), Expires: 08/09/2024 [facility] Work Phone: Comment on above: Expected: 08/16/2023 (Approximate), Expires: 08/09/2024 Start: 08-15-2023 End: 08-15-2023 Patient encounter procedure 08/15/2023 1:30 PM EST Office Visit [facility] [address] [place] [address] [place] [phone] Stacia Baker DO [facility] [place], [place] [address] [facility] Start: 08-01-2023 End: [...] AM EST Office Visit [facility] [address] [place] [address] [place] [address] Stacia Baker DO [address] [place] [address] [facility] Start: 04-11-2023 Adult BMI Follow Up Plan Adult BMI Follow Up Plan [facility] Start: 03-24-2023 Influenza vaccination Influenza Vacc ine [facility] Start: 03-02-2023 Screening for malign ant neoplasm of cervix Pap Smear [facility] Start: 2009 DTaP,Tdap and Td Vac cines (1 - Tdap) DTaP,Tdap and Td Vaccines (1 - Tdap) [facility] Start: 1990 Tobacco Counseling Tobacco Counselin g [facility] End: 08-15-2024 CBC W Auto Differential panel - Blood CBC auto differential Lab Routine SAB (spontaneous ) 1 Occurrences starting 08/15/2023 until 08/15/2024 [facility] Work Phone: Comment on above: 1 Occurrences starti ng 08/15/2023 until 08/15/2024 End: 08-15-2024 hCG, quantitative, hCG, quantitative, Lab Routine SAB (spontaneous ) 1 Occurrences starting 08/15/2023 until 08/15/2024 [facility] Comment on above: 1 Occurrences starti ng 08/15/2023 until 08/15/2024 Immunizations Immunization Date Immunization Notes Care Provider Fa cility NEGATED: Highlighted row has not occurred!07-30-2019 measles, mumps and rubella virus vaccine Deven Valadez [facility] Comment on above: Deferred: - IMMUNE Deferred: Other - IM MUNE NEGATED: Highlighted row has not occurred!07-30-2019 tetanus toxoid, reduced diphtheria toxoid, and acellular pertussis vaccine, adsorbed Deven Valadez [facility] Payers Date Payer Category Payer Private Health Insurance [facility] [id number] 2022-Present [phone] [address] [place] [address] [id number] 2022 Private Health Insurance [id number] 1990 Unknown [id number] 2.16.840.1.848204.3.579. 2.593 1990 Unknown [id number] 2.16.840.1.744174.3.579. 2.1285 1990 Unknown [id number] 2.16.840.1.236327.3.579. 2.1285 1990 Unknown [id number] 2.16.840.1.140447.3.579. 2.1285 1990 Unknown [id number] 2.16.840.1.508194.3.579. 2.1285 1990 Unknown [id number] 2.16.840.1.524252.3.579. 2.1285 1990 Unknown [id number] 2.840.1.913646.3.579. 2.1285 1990 Unknown [id number] 2..840.1.695847.3.579. 2.1285 1990 Unknown [id number] 2..840.1.793886.3.579. 2.1285 1990 Unknown [id number] 2.16.840.1.854133.3.579. 2.1285 1990 Unknown [id number] 2.840.1.818387.3.579. 2.1285 1990 Unknown [id number] 2.16.840.1.220579.3.579. 2.1285 1990 Unknown [id number] 2.16.840.1.093504.3.579. 2.1285 1990 Unknown [id number] 2.16.840.1.639141.3.579. 2.1285 1990 Unknown [id number] 2.16.840.1.451806.3.579. 2.1285 1990 Unknown [id number] 2.16.840.1.557997.3.579. 2.1286 1959 Private Health Insurance [id number] Social History Date Type Detail Facility Start: 09-03-2020 End: 07-04-2023 Sex Assigned At [facility] Start: 03-30-2021 Tobacco smoking stat [facility] Smokes tobacco daily [facility] End: 06-23-2023 History of tobacco use Cigarette Smoker [facility] Start: 09-03-2020 End: 03-30-2021 Cigarettes smoked current (pack per day) - Reported 0.5 [facility] Start: 03-30-2021 End: 08-01-2023 Tobacco use and exposure Smokeless tobacco non-user [facility] Start: 07-04-2023 End: 08-18-2023 Alcohol intake Ex-drinker (finding) [facility] Adolescent depressio n screening assessment 5 [facility] The thought of devoni ng myself has occurred to me Never [facility] Start: 1990 Sex Assigned At Female P [facility] Start: 07-26-2021 Gender identity Identifies as female gender (finding) [facility] Start: 07-26-2021 Sexual orientation Heterosexual (fin karan) [facility] Start: 08-01-2023 Tobacco smoking stat [facility] Ex-smoker [facility] End: 06-23-2023 History of tobacco use Current smoker [facility] [facility] Clinical Notes 05-02-2021 to 08-18-2023 Telephone Encounter - Kaylyn Rodríguez - 08/18/2023 12:48 PM ESTTelephone Encounter - Lauren Maldonado MD - 08/18/2023 12:48 PM ESTTelephone Encounter - Kaylyn Rodríguez - 08/18/2023 12:48 PM EST Note Date & Type Note Facility 08-18-2023 Miscellaneous Notes Formattin g of this note might be different from the original. Adri at [facility] states they do not have the generic methergine prescribed for Pt. Adri states she called 2 other Pharmacies in town & they do not have it either. Please send alternate medication RX to [facility]. Advised Adri at [facility] Pt would be called when new RX is sent. IS NONE DISREGARD AT THIS POINT THANK YOU Pt left VM on 08/18 at 4:22pm, but phones were not forwarded yet. Have tried calling Pt 3 times this morning, but no answer and no VM set up. Pt called in stating that she still was unable to apple picker medication from Pharmacy and wanted to [...] to this information. documented in this encounter [facility] 08-18-2023 Telephone encount er Note Adri at [facility] states they do not have the generic methergine prescribed for Pt. Adri states she called 2 other Pharmacies in town & they do not have it either. Please send alternate medication RX to [facility]. Advised Adri at [facility] Pt would be called when new RX is sent. [facility] 08-18-2023 Telephone encount er Note IS NONE DISREGARD AT THIS POINT [facility]ANK YOU [facility] Pt left VM on 08/18 at 4:22pm, but phones were not forwarded yet. Have tried calling Pt 3 times this morning, but no answer and no VM set up. [facility] encount er Note Pt called in stating that she still was unable to apple picker medication from Pharmacy and wanted to [...] evaluation. Pt was agreeable to this information. 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 Dr. Maldonado would like a CBC & Type & Screen ordered for the patient and the patient to be NPO after midnight. Surgery scheduled with [facility] in surgery scheduling for 08/18/23 at 9:00am [...] & screen drawn. documented in this encounter [employer] 08-17-2023 Telephone encount er Note Per Dr. Baker patient needs to be schedule for surgery with her or Dr. Maldonado for a missed ab & retained products of conception. Sugar talked to Dr. Maldonado & Dr. 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 Dr. Maldonado would like a CBC & [...] to have the type & screen drawn. [facility] 08-17-2023 History of Presen t illness Narrative Ordered Type and Screen per Dr Maldonado documented in this encounter [facility] 08-17-2023 Miscellaneous Notes Addended by: DEVEN VALADEZ on: 08/17/2023 01:20 PM Modules accepted: Orders documented in this encounter [facility] 08-17-2023 Note Addended by: DEVEN VALADEZ on: 08/17/2023 01:20 PM Modules accepted: Orders [facility] 08-15-2023 History of Presen t illness Narrative HCG and CBC ordered documented in this encounter [facility] 08-09-2023 History of Presen t illness Narrative Order placed for hCG as we're trending after SAB. Pt. Notified via [employer] and has been seen in the office in the last week by Dr. Baker. [facility] 08/09/23 0846 documented in this encounter [facility] 08-03-2023 History of Presen t illness Narrative Prescription for Motrin placed documented in this encounter [facility] 08-03-2023 Miscellaneous Notes Formattin g of this note might be different from the original. Pt states she was told at her appointment on that a RX for Motrin would be sent to [facility]. Pt went to [facility] today & there wasn't a RX for her to apple picker. Please advise. Thank you Unable to reach Pt. Advised Pt RX was sent. documented in this encounter [facility] 08-03-2023 Telephone encount er Note Pt states she was told at her appointment on that a RX for Motrin would be sent to [facility]. Pt went to [facility] today & there wasn't a RX for her to apple picker. Please advise. Thank you [facility] 08-03-2023 Telephone encount er Note Unable to reach Pt. [facility] 08-03-2023 Telephone encount er Note Advised Pt RX was sent. [facility] 08-01-2023 History of Presen t illness Narrative Subjective Patient ID: Juanjose Geronimo is a pleasant 33 y.o. female who presents today for follow-up of spontaneous . Patient had an SAB in early June. She was seen and treated initially at [facility] emergency room, and has been following here [...] some tissue still in her uterus at [facility]. This was 1 month ago. She has [...] products of conception. documented in this encounter [facility] 07-28-2023 Miscellaneous Notes Formattin g of this note might be different from the original. Called and left vm for pt to call office back regarding her HCG that was done 07/25/23. Pt will need to have more drawn until they are less than 5 documented in this encounter [facility] 07-28-2023 Telephone encount er Note Called and left vm for pt to call office back regarding her HCG that was done 07/25/23. Pt will need to have more drawn until they are less than 5 [facility] 05-02-2021 Evaluation note Encounter Date Diagnosis [...] Patient care instructions given in writting by [facility] document. [employer] Other Evaluation note* Diagnosis SAB (spontaneous )- Primary Unspecified spontaneous without mention of complication Low back pain, unspecified back pain laterality, unspecified chronicity, unspecified whether sciatica present [facility] Diagnosis Acute bilateral low back pain without sciatica- Primary [facility] Diagnosis SAB (spontaneous )- Primary Unspecified spontaneous without mention of complication [facility] Diagnosis SAB (spontaneous )- Primary Unspecified spontaneous without mention of complication documented in this encounter [facility]* Diagnosis Missed - Primary Pre-op testing Unspecified pre-operative examination [facility] Narrative - Reported* Type Description Date Surgical History tonsillectomy and adenoidectomy Surgical History C section Surgical History cholecystectomy [facility] Other InstructionsNot on filedocumented in this encounter [facility] filedocumented in this encounter [facility] on filedocumented in this encounter [facility] filedocumented in this [facility] on filedocumented in this encounter [facility] Summary Purpose Family History No Family History Records FoundNo Family History Records FoundNo Family History Records Found Advance Directives No Advanced Directives Records FoundLatest Code Status on File Code Status Date Activated Date Inactivated Comments Full Code 07/29/2019 8:47 PM 07/31/2019 9:08 PM Code Status History Code Status Date Activated Date Inactivated Comments Full Code 07/29/2019 8:41 AM 07/29/2019 8:47 PM Additional Source Comments INFORMATION SOURCE (unrecogn ized section and content) DATE CREATED AUTHOR 10/05/2021 [facility] DATE CREATED AUTHOR AUTHOR'S ORGANIZ ATION 08/20/2023 [facility] DATE CREATED AUTHOR AUTHOR'S ORGANIZ ATION 08/27/2023 [facility] REASON FOR VISIT (unrecogniz ed section and content) Reason Comments Follow-up SAB Care Teams (unrecognized sec tion and content) [employer] T[employer] Preparer Relationship Specialty Start Date End Date Shagufta Nelson DO [address] [place] [address] PCP - General Family Medicine 11/01/22 [employer] Preparer Relationship Specialty Start Date End Date Shagufta Nelson DO [address] [place] [address] PCP - General Family Medicine 11/01/22 [employer]icket Preparer Relationship Specialty Start Date End Date Shagufta Nelson DO [address] [place] [address] PCP - General Family Medicine 11/01/22 [employer] Ticket Preparer Relationship Specialty Start Date End Date Shagufta Nelson DO [address] [place] [address] PCP - General Family Medicine 11/01/22 [employer] Ticket Preparer Relationship Specialty Start Date End Date Shagufta Nelson DO [address] [place] [address] PCP - General Family Medicine 11/01/22 FOR [...] BE BASED ON THE PRIMARY CLINICAL RECORDS. [facility]. provides no warranty or guarantee of the accuracy or completeness of information in this document.
== END 2023-08-29 11:34 | disposition home or self-care (01) ==
LOC: NOMS 11:34
PROVIDERS: PCP Family Medicine; Visit Provider Obstetrics & Gynecology
DX: Z98.890 Other specified postprocedural states (principal)
CPT/HCPCS: 76830

== ENCOUNTER 2023-12-21 20:15 | Emergency (ER) | payer OTHER, SELFPAY ==
[2023-12-21 20:18] VITALS: BP 118/64; PULSE 82; TEMP 36.6; O2SAT 100; BMI 31.9
--- NOTE | 2023-12-21 20:23 | PC.NURSE ---
Left upper tooth pain for a few days. patient states she needs all her teeth removed but does not have dentist.
--- NOTE | 2023-12-21 20:27 | ED_ITS ---
HPI - Dental/Oral General Chief complaint: Dental/Oral Stated complaint: Dental Pain Time Seen by Provider: 12/21/23 20:17 Source: patient Mode of arrival: walk-in Limitations: no limitations History of Present Illness HPI Narrative: Patient is a 33-year-old female who presents to the emergency department for pain in the left maxilla with mild facial swelling. She has been using ibuprofen with some improvement of pain and swelling. No fevers or vomiting. No drainage from the teeth. She has diffuse dental caries of the entire mouth, she believes tooth #13 is the source of her pain. She was approved by her insurance to have all of her teeth removed recently. She is regular smoker. She has no concern for at this time. Related Data Home Medications ?Medication ?Instructions ?Recorded ?Confirmed doxycycline hyclate 100 mg capsule 100 mg PO Q12H 08/24/23 08/24/23 ibuprofen 800 mg tablet 800 mg PO Q8H 12/21/23 12/21/23 norethindrone 1 mg-ethinyl 1 tab PO DAILY 12/21/23 12/21/23 estradiol 20 mcg (21)-iron 75 mg (7) tablet (Brooke Fe 08/12 ()) Previous Rx's ?Medication ?Instructions ?Recorded clindamycin HCl 150 mg capsule 300 mg (2 x 150 mg) PO Q6H 10 days 12/21/23 #80 caps ketorolac 10 mg tablet 10 mg PO TID PRN pain #10 tabs 12/21/23 Allergies Allergy/AdvReac Type Severity Reaction Status Date / Time amoxicillin AdvReac Mild Rash Verified 12/21/23 20:23 Review of Systems ROS Constitutional Denies: fever or chills Ears, nose, mouth, and throat Reports: mouth pain; Denies: throat pain or nasal congestion Respiratory Denies: shortness of breath or cough Gastrointestinal Denies: nausea or vomiting Integumentary/Breast Denies: rash Neurological Denies: headache Hematologic/Lymphatic Denies: easy bruising or easy bleeding PFSH PFSH Social History Smoking status: Current every day smoker Exam Narrative Exam Narrative: Gen.: Awake, alert, in no distress Head: Normocephalic, atraumatic ENT: Moist mucous membranes, Diffuse dental caries with mild tenderness of tooth #13, multiple teeth eroded to the gumline. No obvious abscess. No redness or swelling under the tongue. Clear speech. Uvula midline. Respiratory: No respiratory distress Extremities: Moves extremities equally Psych: Normal mood and affect Neuro: No focal neuro deficit Skin: Warm, dry, intact Constitutional Vital Signs, click to edit/add: Last Vital Signs Temp 97.9 F 12/21/23 20:18 Pulse 82 12/21/23 20:18 Resp 18 12/21/23 20:18 BP 118/64 12/21/23 20:18 Pulse Ox 100 12/21/23 20:18 O2 Del Method Room Air 12/21/23 20:18 Course Vital Signs Vital signs: Vital Signs Temperature 97.9 F 12/21/23 20:18 Pulse Rate 82 12/21/23 20:18 Respiratory Rate 18 12/21/23 20:18 Blood Pressure 118/64 12/21/23 20:18 Pulse Oximetry 100 12/21/23 20:18 Oxygen Delivery Method Room Air 12/21/23 20:18 Temperature 97.9 F 12/21/23 20:18 Pulse Rate 82 12/21/23 20:18 Respiratory Rate 18 12/21/23 20:18 Blood Pressure 118/64 12/21/23 20:18 Pulse Oximetry 100 12/21/23 20:18 Oxygen Delivery Method Room Air 12/21/23 20:18 MDM - Dental/Oral MDM Narrative Medical decision making narrative: Patient treated with topical analgesia, placed on clindamycin and Toradol. Follow-up with dentist and return to the ER if symptoms change or worsen Medical Records Attestation: I reviewed the patient's medical records. Discharge Plan Discharge Stand Alone Forms: Portal Instructions Chief Complaint: Dental/Oral Clinical Impression: Toothache, Dental caries Patient Disposition: Home, Self-Care Time of Disposition Decision: 20:31 Condition: Good Prescriptions / Home Meds: New clindamycin HCl 150 mg capsule 300 mg PO Q6H 10 Days Qty: 80 0RF ketorolac 10 mg tablet 10 mg PO TID PRN (Reason: pain) Qty: 10 0RF No Action doxycycline hyclate 100 mg capsule 100 mg PO Q12H norethindrone-e.estradiol-iron [Brooke Fe 08/12 (28)] 1 mg-20 mcg (21)/75 mg (7) tablet 1 tab PO DAILY ibuprofen 800 mg tablet 800 mg PO Q8H Print Language: Ugandan Instructions: Toothache (ED) Referrals: [facility] [Primary Care Provider] - 1 week
--- OUTSIDE RECORDS SUMMARY | 2023-12-21 20:29 | XMS_ITS | CCD ---
Author Organization [facility] Care Team Providers Care Robotype Operator Name Role Phone REQUEST, DR NONE LISTED Primary Care Unavaila juventino ALDANA, DR ZACK Do Admitting Unavailable ERICKA HAWKINS Consulting Unavailable JOVAN, DR ZACK Do Attending Unavailable JUANITA WHEELER Consulting Unavailable Sheryl Silva Unavailable Rumschlag DO, Shagufta K Primary Care Provider [phone] STACIA BAKER Attending Unavailable RUMSCHLAG, SHAGUFTA K [...] SHAGUFTA K Primary Care Unavailable SHAHANA MURO Referring Unavailable RUMSCHLAG, SHAGUFTA K Primary Care [...] SHAGUFTA K Primary Care Unavailable ERICA, LAUREN Admitting Unavailable ERICAGABRIELLAIE Attending Unavailable ERICA, LAUREN Referring Unavailable RUMSCHLAG, SHAGUFTA K Primary Care Unavailable RAIN BOX Attending Unavailable SHAGUFTA NELSON Primary Care Unavailable TRACEY KEITH Attending Unavailable Shagufta Nelson DO Primary Care Provider Allergies Allergy Classification Reported Allergen(s) Allergy Type Date of Onset Reaction(s) Facility (13 sources) Amoxicillin; Translations: [AMOXICILLIN] Drug Allergy 02-26-2021 anaphylaxis, Rash, Hives [facility] Medications Current Medications Medication Drug Class(es) Dates Sig (Normalized) Sig (Original) acetaminophen 325 mg / HYDROcodone bitartrate 5 mg oral tablet (9 sources) Opioid Agonist Start: 07-04-2023 HYDROcodone-aceta minophen (NORCO) 5-325 mg per tablet Brompheniramine / Pseudoephedrine (1 source) alpha-Adrenergic Agonist Start: 05-02-2021 take 5 mL by mouth every six hours as needed Bromfed DM 30-2-10 MG/5ML 5 ml as needed Orally every 6 hrs Apr, Active doxycycline hyclate 100 mg oral capsule (1 source) Tetracycline-cla ss Drug Start: 08-18-2023 End: 08-25-2023 take 1 capsule by mouth in the morning, then take 1 capsule by mouth at bedtime doxycycline (VIBRAMYCIN) 100 mg capsule Take 1 capsule (100 mg total) by mouth in the morning and 1 capsule (100 mg total) before bedtime. Do all this for 7 days. 14 capsule 0 08/18/2023 08/25/2023 Active Ethinyl Estradiol / Ferrous fumarate / Norethindrone (10 sources) Estrogen Start: 08-29-2023 End: 08-28-2024 norethindrone-eth inyl estradiol (Frandy Fe 08/12) 1-20 MG-MCG tablet Indications: S/P D&C (status post dilation and curettage) Take 1 tablet by mouth in the morning. 28 tablet 12 08/29/2023 08/28/2024 Active Start: 05-09-2023 take 1 tablet by fady th once in the morning norethindrone-e.estradioL-iron (FRANDY 24 FE) 1 mg-20 mcg (24)/75 mg (4) per tablet Indications: Surveillance of contraceptive pill TAKE 1 TABLET BY MOUTH IN THE MORNING 28 tablet 11 05/09/2023 Active Ethinyl Estradiol / norgestimate (1 source) Progestin, Estrogen Ortho Tri-Cy clen (28) Active fluticasone propionate 0.05 mg/actuat metered dose nasal spray (1 source) Corticosteroid Start: 021 take 1 spray(s) nasal route once daily Fluticasone Propionate 50 MCG/ACT 1 spray in each nostril Nasally Once a day for 30 day(s) Apr, Active ibuprofen 800 mg oral tablet (9 sources) Nonsteroidal Anti-inflammatory Drug Start: 024 take 1 tablet by mouth every eight hours as needed for pain ibuprofen 800 MG tablet Take 800 mg by mouth every 8 (eight) hours if needed for moderate pain 0 08/03/2023 Active methylergonovine maleate 0.2 mg oral tablet (1 source) Ergot Derivative Start: 024 take 1 tablet by mouth every six hours methylergonovine (METHERGINE) 0.2 mg tablet Take 1 tablet (200 mcg total) by mouth every 6 (six) hours. 12 tablet 0 08/18/2023 Active ondansetron 4 mg disintegrating oral tablet (9 sources) Serotonin-3 Receptor Antagonist Start: 023 ondansetron ODT (ZOFRAN ODT) 4 mg disintegrating [...] Facility Surgical Pathologyon 024 Surgical Pathology Normal [facility] Comment on above: Result Comment: [facility] [address] [place] [address] Surgical Pathology Consultation Patient Name:JUANJOSE GERONIMO:1990 (Age: 33)Gender:FTaken:4Reported:4Physician(s):Lauren Maldonado M.D. ([phone])Copy To: Rec. #:[id number]: #[id number] Final Pathologic Diagnosis Products of conception: Abundant blood clot admixed with fragments of hemorrhagic and focally necrotic decidual tissue and secretory endometrium. Occasional immature chorionic villi identified. The findings are consistent with retained products of conception. Report Electronically Signed Out ao/08/23/2023flory Benton MD [facility] [place] [address], License number: [id number]. Clinical History Missed AB, retained products of conception. Gross Description Received in formalin labeled JUANPABLO, uterus Karyotype: No Aggregate measurement: 6.1 x 4.8 x 1.2 cm Placenta: No Decidua/Clot: 6.1 x 4.8 x 1.2 cm Gestational Sac: No Tissue: No Molar Tissue: No Cassettes: A-E decidua/clot (5, ss, [id number],m6) DM dm/08/18/2023O Specimen(s) Received Products of conception Fee Codes(s): 1; 48516 CBC AND AUTO DIFFon 08-17-19 ABSOLUTE BASOPHIL 0.0 X10E9/L Normal 0.0-0.2 [facility] Comment on above: Performed By: #### C BCA, CMP, 92508-9 #### [facility] ([id number]) [address] [place] [address], [address] [place] [address] ABSOLUTE NEUTROPHIL 3.6 X10E9/L Normal 1.5-6.6 [facility] Comment on above: Performed By: #### C BCA, CMP, #### [facility] ([id number]) [address], [address] [place] [address] Basophils/100 WBC (Bld) 0.4 % Normal [facility] Comment on above: Performed By: #### C BCA, CMP, #### [facility] ([id number]) [address], [address] [place] [address] Eosinophils (Bld) [#/Vol] 0.1 10*3/uL Normal 0.0-0.4 [facility] Comment on above: Performed By: #### C BCA, CMP, #### [facility] ([id number]) [address], [address] [place] [address] Eosinophils/100 WBC (Bld) 1.8 % Normal [facility] Comment on above: Performed By: #### Judi BCA, CMP, #### [facility] ([id number]) [address], [address] [place] [address] Erythrocyte distribution width (RBC) [Ratio] 13.8 % Normal 11.5-15.0 [facility] Comment on above: Performed By: #### C ORLANDO, CMP, #### [facility] ([id number]) [address], [address] [place] [address] Hematocrit (Bld) [Volume fraction] 37.7 % Normal 35-47 [facility] Comment on above: Performed By: #### C BCA, CMP, #### [facility] ([id number]) [address], [address] [place] [address] Hemoglobin (Bld) [Mass/Vol] 12.5 g/dL Normal 11.7-15.5 [facility] Comment on above: Performed By: #### C BCA, CMP, #### [facility] ([id number]) [address] [place] [address] Lymphocytes (Bld) [#/Vol] 2.3 10*3/uL Normal 1.0-3.5 [facility] Comment on above: Performed By: #### C ORLANDO CMP, #### [facility] ([id number]) [address], [facility] [address] [place] [address] Lymphocytes/100 WBC (Bld) 35.7 % Normal [facility] Comment on above: Performed By: #### Judi PERRY, CMP, #### [facility] ([id number]) [address] [place] [address] MCH (RBC) [Entitic mass] 29.9 pg Normal 27-34 [facility] Comment on above: Performed By: #### Judi PERRY, CMP, #### [facility] ([id number]) [address], [address] [place] [address] MCHC (RBC) [Mass/Vol] 33.2 g/dL Normal 32-36 [facility] Comment on above: Performed By: #### Judi PERRY, CMP, #### [facility] ([id number]) [address] [place] [address] MCV (RBC) [Entitic vol] 90 fL Normal 80-100 [facility] Comment on above: Performed By: #### Judi BCA, CMP, #### [facility] ([id number]) [address] [place] [address] Monocytes (Bld) [#/Vol] 0.4 10*3/uL Normal 0-0.9 [facility] Comment on above: Performed By: #### Judi BCA, CMP, #### [facility] ([id number]) [address], [address] [place] [address] Monocytes/100 WBC (Bld) 5.8 % Normal [facility] Comment on above: Performed By: #### C ORLANDO CMP, #### [facility] ([id number]) [address], [address] [place] [address] Neutrophils/100 WBC (Bld) 56.3 % Normal [facility] Comment on above: Performed By: #### Judi PERRY CMP, #### [facility] ([id number]) [address], [address] [place] [address] Platelet mean volume (Bld) [Entitic vol] 8.7 fL Normal 7-12 [facility] Comment on above: Performed By: #### Judi PERRY CMP, #### [facility] ([id number]) [address], [address] [place] [address] Platelets (Bld) [#/Vol] 244 10*3/uL Normal 150-450 [facility] Comment on above: Performed By: #### Judi PERRY CMP, #### [facility] ([id number]) [address], [address] [place] [address] RBC COUNT 4.18 X10E12/L Normal 3.80-5.20 [facility] Comment on above: Performed By: #### Judi PERRY CMP, #### [facility] ([id number]) [address], [address] [place] [address] WBC (Bld) [#/Vol] 6.5 10*3/uL Normal 4.0-11.0 [facility] Comment on above: Performed By: #### Judi BCA, CMP, #### [facility] ([id number]) [address], [address] [place] [address] COMPREHENSIVE METABOLIC PANE Cirilo 08-17-2023 Albumin [Mass/Vol] 4.5 g/dL Normal 3.2-5.3 [facility] Comment on above: Performed By: #### C ORLANDO, CMP, #### [facility] ([id number]) [address], [address] [place] [address] ALP [Catalytic activity/Vol] 52 U/L Normal 39-130 [facility] Comment on above: Performed By: #### C BCA, CMP, #### [facility] ([id number]) [address], [address] [place] [address] ALT [Catalytic activity/Vol] 22 U/L Normal 0-31 [facility] Comment on above: Performed By: #### C BCA, CMP, #### [facility] ([id number]) [address], [address] [place] [address] Anion gap [Moles/Vol] 6 mmol/L Normal 5-15 [facility] Comment on above: Performed By: #### C BCA, CMP, #### [facility] ([id number]) [address], [address] [place] [address] AST [Catalytic activity/Vol] 14 U/L Normal 0-41 [facility] Comment on above: Performed By: #### C BCA, CMP, #### [facility] ([id number]) [address], [address] [place] [address] Bilirubin [Mass/Vol] 0.4 mg/dL Normal 0.3-1.2 [facility] Comment on above: Performed By: #### C BCA, CMP, #### [facility] ([id number]) [address], [address] [place] [address] Calcium [Mass/Vol] 8.8 mg/dL Normal 8.5-10.5 [facility] Comment on above: Performed By: #### C ORLANDO [facility], #### [facility] ([id number]) [address], [address] [place] [address] Chloride [Moles/Vol] 105 mmol/L Normal 98-109 [facility] Comment on above: Performed By: #### C ORLANDO [facility], #### [facility] ([id number]) [address], [address] [place] [address] CO2 [Moles/Vol] 27 mmol/L Normal 22-32 [facility] Comment on above: Performed By: #### C AMY PERRY, #### [facility] ([id number]) [address], [address] [place] [address] Creatinine [Mass/Vol] 0.74 mg/dL Normal 0.40-1.00 [facility] Comment on above: Result Comment: METH OD TRACEABLE TO IDMS STANDARD Performed By: #### C ORLANDO [facility], #### [facility] ([id number]) [address], [address] [place] [address] eGFR (CKD-EPI) NON-RACE DEPENDENT >90 Normal >59 [facility] Comment on above: Result Comment: Reported eGFR is based on the CKD-EPI 2020 equation that does not use a race coefficient. Performed By: #### C AMY PERRY, #### [facility] ([id number]) [address], [address] [place] [address] Glucose [Mass/Vol] 86 mg/dL Normal 65-99 [facility] Comment on above: Performed By: #### C ORLANDO [facility], 58737-9 #### [facility] ([id number]) [address], [address] [place] [address] Potassium [Moles/Vol] 4.4 mmol/L Normal 3.5-5.0 [facility] Comment on above: Performed By: #### C BCA, CMP, 17258-3 #### [facility] ([id number]) [address], [address] [place] [address] Protein [Mass/Vol] 7.2 g/dL Normal 6.0-8.0 [facility] Comment on above: Performed By: #### C BCA, CMP, 91366-8 #### [facility] ([id number]) [address], [address] [place] [address] Sodium [Moles/Vol] 138 mmol/L Normal 134-146 [facility] Comment on above: Performed By: #### C BCA, CMP, 82627-9 #### [facility] ([id number]) [address], [address] [place] [address] Urea nitrogen [Mass/Vol] 13 mg/dL Normal 5-23 [facility] Comment on above: Performed By: #### C BCA, CMP, 20921-1 #### [facility] ([id number]) [address], [address] [place] [address] HCG.beta subunit IA 3rd IS Q non 08-17-2023 HCG.beta subunit Qn 12 m[IU]/mL Normal [facility] Comment on above: Result Comment: NEW REFERENCE [...] or nontrophoblastic neoplasms. Performed By: #### C BCA, [facility], 16445-4 #### [facility] ([id number]) [address], [address] [place] [address] Type and screen(includes ind irect vero)on 08-17-2023 [...] Pablo MD on 08/14/2023 1:49 PM Normal [facility] HCG.beta subunit IA 3rd IS Q non 08-08-2023 HCG.beta subunit Qn 17 m[IU]/mL Normal [facility] Comment on above: Result Comment: NEW REFERENCE [...] neoplasms. Performed By: #### 2 0415-6 #### [facility] ([id number]) [address] [place] [address], [address] [place] [address] HCG.beta subunit IA 3rd IS Q non 08-01-2023 HCG.beta subunit Qn 24 m[IU]/mL Normal [facility] Comment on above: Result Comment: NEW REFERENCE [...] neoplasms. Performed By: #### 2 0415-6 #### [facility] ([id number]) [address] [place] [address], [address] [place] [address] HCG.beta subunit IA 3rd IS Q non 07-25-2023 HCG.beta subunit Qn 31 m[IU]/mL Normal [facility] Comment on above: Result Comment: NEW REFERENCE [...] neoplasms. Performed By: #### 2 0415-6 #### [facility] ([id number]) [address] [place] [address], [address] [place] [id number] HCG.beta subunit IA 3rd IS Q non 07-18-2023 HCG.beta subunit Qn 39 m[IU]/mL Normal [facility] Comment on above: Result Comment: NEW REFERENCE [...] neoplasms. Performed By: #### 2 0415-6 #### [facility] ([id number]) [address] [place] [address], [address] [place] [address] HCG.beta subunit IA 3rd IS Q non 07-10-2023 HCG.beta subunit Qn 47 m[IU]/mL Normal [facility] Comment on above: Result Comment: NEW REFERENCE [...] neoplasms. Performed By: #### 2 0415-6 #### [facility] ([id number]) [address] [facility], [address] [place] [address] COVID Quick Testingon 2020 Result Negative [facility] Other Quick Strepon 05-02-2021 S. pyogenes Org specific cx Ql (Throat) Negative [facility] Other Quick Strep [facility] Other Vital Signs Date Time Vital Sign Value Performing Clinician Facility 08-29-2023 10:36-0500 Body height 170.2 cm [employer] Work Phone: [facility] 08-29-2023 10:36-0500 Body mass index (BMI) [Ratio] 31.23 kg/m2 Tracey Inna [employer] Work Phone: [facility] 08-29-2023 10:36-0500 Body weight 90.45 kg Tracey Inna [employer] Work Phone: [facility] 08-29-2023 10:36-0500 Diastolic blood pressure 60 mm[Hg] Tracey Inna [employer] Work Phone: [facility] 08-29-2023 10:36-0500 Systolic blood pressure 104 mm[Hg] Tracey Inna [employer] Work Phone: [facility] 08-01-2023 10:34-0500 Body mass index (BMI) [Ratio] 30.85 kg/m2 Stacia Baker DO Work Phone: [employer] 08-01-2023 10:34-0500 Body weight 89.36 kg Stacia Baker DO Work Phone: [employer] 08-01-2023 10:34-0500 Diastolic blood pressure 48 mm[Hg] Stacia Baker DO Work Phone: [employer] 08-01-2023 10:34-0500 Systolic blood pressure 100 mm[Hg] Stacia Baker DO Work Phone: [employer] 05-02-2021 12:00-0400 Body height 170.18 cm Sheryl Silva Other [facility] Other 05-02-2021 12:00-0400 Body mass index (BMI) [Ratio] 32.42 kg/m2 Sheryl Silva Other [facility] Other 05-02-2021 12:00-0400 Body temperature 97.5 [degF] Sheryl Silva Other [facility] Other 05-02-2021 12:00-0400 Body weight 93.9 kg Sheryl Silva Other [facility] Other 05-02-2021 12:00-0400 SaO2% (BldA) [Mass fraction] 99 % Sheryl Silva Other [employer] Other Encounters Encounter Date Encounter Type Care Provider Facility Start: 08-29-2023 End: 08-29-2023 ambulatory TRACEY KEITH Not Available Start: 08-29-2023 End: 08-29-2023 Office outpatient visit 15 minutes Tracey Keith DO Work Phone: [facility] Comment on above: S/P D&C (status post dilation and curettage) Start: 08-18-2023 Telephone encounter Lauren ontiveros MD Work Phone: [facility] Start: 08-18-2023 End: 08-18-2023 Evaluation and management of inpatient RAIN BOX [facility] Start: 08-18-2023 End: 08-18-2023 Evaluation and management of inpatient [facility] Start: 08-17-2023 Encounter for other preprocedural examination [facility] Start: 08-17-2023 End: 08-18-2023 Orders Only Deven Valadez [facility] Comment on above: Missed (Anabelle emanuel Dx); Pre-op testing Start: 08-17-2023 Patient encounter status Deven higgins [facility] Start: 08-15-2023 Orders Only Stacia Baker DO Work Phone: [facility] Comment on above: SAB (spontaneous abo rtion) (Primary Dx) Start: 08-14-2023 End: 08-15-2023 ambulatory [facility] Start: 08-09-2023 Orders Only [facility] [employer] Work Phone: [facility] Comment on above: SAB (spontaneous abo rtion) (Primary Dx) Start: 08-08-2023 End: 08-09-2023 ambulatory [facility] Start: 08-03-2023 Orders Only Stacia Baker DO Work Phone: [facility]ne[facility] Comment on above: Acute bilateral low back pain without sciatica (Primary Dx) Start: 08-01-2023 End: 08-02-2023 ambulatory [facility] Start: 08-01-2023 End: 08-01-2023 Office outpatient visit 15 minutes Stacia Baker DO [facility] Comment on above: SAB (spontaneous abo rtion) (Primary Dx); Low back pain, unspecified back pain laterality, unspecified chronicity, unspecified whether sciatica present Start: 07-28-2023 Telephone encounter Deven Lau MA [facility] Start: 07-25-2023 End: 07-26-2023 ambulatory [facility] Start: 07-18-2023 End: 07-19-2023 ambulatory SHAGUFTA [facility] Start: 07-10-2023 End: 07-11-2023 ambulatory LAUREN MALDONADO [facility] Start: 05-02-2021 Office outpatient vi sit 15 minutes [facility] Start: 02-22-2020 End: 02-23-[address] NONE LISTED REQUEST Facility: Procedures Date Procedure Procedure Detail Performing Clinician Start: 08-17-2023 Antibody screen Deven Valadez [employer] Start: 08-01-2023 Follow-up visit Follow-up STACIA BAKER Start: 04-12-2023 Adult depression screening assessment Deven Valadez [employer] Start: 03-02-2020 Microscopic observat ion [Identifier] in Cervix by Cyto stain Deven Valadez [employer] Start: 07-31-2019 H/O: section S/P s ection Deven Casey [employer] H/O: surgery S/P D&C (status post dilation and curettage) Tracey Keith DO Work Phone: Plan of Treatment Date Care Activity Detail Author Start: 08-18-2024 Adult BMI Screening Adult BMI Screen ing [facility] Start: 08-18-2024 Tobacco Screening Tobacco Screening [facility] Start: 08-17-2024 Tobacco Screening Tobacco Screening [facility] Start: 08-01-2024 Adult BMI Screening Adult BMI Screen ing [facility] Start: 08-01-2024 Tobacco Screening Tobacco Screening [facility] Start: 07-04-2024 Adult BMI Screening Adult BMI Screen ing [facility] Start: 07-04-2024 Tobacco Screening Tobacco Screening [facility] Start: 04-12-2024 Depression Screening Depression Scre ening [facility] Start: 08-29-2023 End: 08-29-2024 US Pelvis transvaginal US pelvis transvaginal Imaging Routine S/P D&C (status post dilation and curettage) Expected: 08/29/2023 (Approximate), Expires: 08/29/2024 [facility] Work Phone: Comment on above: Expected: 08/29/2023 (Approximate), Expires: 08/29/2024 Start: 08-18-2023 End: 08-18-2023 Admission to same day surgery center 08/18/2023 9:00 AM EST - 08/18/2023 10:00 AM EST Surgery [facility] [address] [place] [id number] Lauren Maldonado MD [address] [place], [place] [id number] DILATION CURETTAGE SUCTION [42253 (CPT )] [facility] Comment on above: DILATION CURETTAGE S UCTION [95137 (CPT )] Start: 08-18-2023 End: 08-18-2023 Anesthesia consultation 08/18/2023 9:00 AM EST Anesthesia Event [facility] [address] [place] [phone] Rain Box MD [address] [facility] [facility] [place] [address] [facility] Start: 08-18-2023 End: 08-18-2023 Dilation & curettage dx&/ther nonobstetric DILATION CURETTAGE SUCTION missed AB, retained products of conception 08/18/2023 9:00 AM EST [facility] Start: 08-18-2023 Subsequent hospital visit by physician 08/18/2023 9:00 AM EST Hospital Encounter [facility] [address] [place] [phone] Lauren Maldonado MD [address] [place], [place] [id number] [facility] Start: 08-17-2023 End: 08-17-2023 Telemedicine consultation with patient 08/17/2023 10:00 AM EST Telemedicine [facility] [address] [place] [place] [place] [phone] Stacia Baker DO [address] [place], [place] [id number] [facility] Start: 08-16-2023 End: 08-09-2024 hCG, quantitative, hCG, quantitative, Lab Routine SAB (spontaneous ) Expected: 08/16/2023 (Approximate), Expires: 08/09/2024 [facility] Work Phone: Comment on above: Expected: 08/16/2023 (Approximate), Expires: 08/09/2024 Start: 08-15-2023 End: 08-15-2023 Patient encounter procedure 08/15/2023 1:30 PM EST Office Visit [facility] [address] [place], [place] [address] [place] [phone] Stacia Baker DO [address] [place], [place] [phone] [facility] Start: 08-01-2023 End: [...] AM EST Office Visit [facility] [place] [phone] Stacia Baker, [address] [place] [address] [facility] Start: 04-11-2023 Adult BMI Follow Up Plan Adult BMI Follow Up Plan [facility] Start: 03-24-2023 Influenza vaccination Influenza Vacc ine [facility] Start: 03-02-2023 Screening for malign ant neoplasm of cervix Pap Smear [facility] Start: 2009 DTaP,Tdap and Td Vac cines (1 - Tdap) DTaP,Tdap and Td Vaccines (1 - Tdap) [facility] Start: 1990 Tobacco Counseling Tobacco Counselin g [facility] End: 08-15-2024 CBC W Auto Differential panel - Blood CBC auto differential Lab Routine SAB (spontaneous ) 1 Occurrences starting 08/15/2023 until 08/15/2024 [facility] Work Phone: Comment on above: 1 Occurrences starti ng 08/15/2023 until 08/15/2024 End: 08-15-2024 hCG, quantitative, hCG, quantitative, Lab Routine SAB (spontaneous ) 1 Occurrences starting 08/15/2023 until 08/15/2024 [facility] Comment on above: 1 Occurrences starti ng 08/15/2023 until 08/15/2024 Immunizations Immunization Date Immunization Notes Care Provider Fa cility NEGATED: Highlighted row has not occurred!07-30-2019 measles, mumps and rubella virus vaccine Deven Valadez [facility] Comment on above: Deferred: - IMMUNE Deferred: Other - IM MUNE NEGATED: Highlighted row has not occurred!07-30-2019 tetanus toxoid, reduced diphtheria toxoid, and acellular pertussis vaccine, adsorbed Deven Valadez [facility] Payers Date Payer Category Payer Private Health Insurance [facility] [id number] 2022-Present [phone] [address] [place] [address] [id number] 2022 Medicaid [employer] [place] [id number] 2022-Present [address] [place] [address] [id number] 2022 Private Health Insurance [id number] 1990 Unknown [id number] 2.16.840.1.354807.3.579. 2.593 1990 Unknown [id number] 2.16.840.1.544581.3.579. 2.6 1990 Unknown [id number] 2.16.840.1.943094.3.579. 2.6 1990 Unknown [id number] 2.16.840.1.213391.3.579. 2.1285 1990 Unknown [id number] 2.16.840.1.566320.3.579. 2.1286 1990 Unknown [id number] 2.16.840.1.939964.3.579. 2.6 1990 Unknown [id number] 2.16.840.1.642226.3.579. 2.6 1990 Unknown [id number] 2.16.840.1.044721.3.579. 2.128 1990 Unknown [id number] 2.16.840.1.790656.3.579. 2.1286 1990 Unknown [id number] 2.16.840.1.191669.3.579. 2.1285 1990 Unknown [id number] 2.16.840.1.950270.3.579. 2.1286 1990 Unknown [id number] 2.16.840.1.784476.3.579. 2.6 1990 Unknown [id number] 2.16.840.1.339971.3.579. 2.1286 1990 Unknown [id number] 2.16.840.1.398743.3.579. 2.1286 1990 Unknown [id number] 2.16.840.1.543344.3.579. 2.1286 1990 Unknown [id number] 2.16.840.1.201432.3.579. 2.1286 1990 Unknown [id number] 2.16.840.1.343767.3.579. 2.1259 1959 Private Health Insurance [id number] Social History Date Type Detail Facility Start: 03-12-2023 End: 07-04-2023 Sex Assigned At [facility] Start: 04-23-2012 End: 03-12-2023 Tobacco smoking status AKIS Smokes tobacco daily [facility] Start: 04-23-2012 End: 06-23-2023 History of tobacco use Cigarette Smoker [facility] Start: 03-30-2021 End: 03-12-2023 Cigarettes smoked current (pack per day) - Reported 0.5 [facility] Start: 03-30-2021 End: 08-01-2023 Tobacco use and exposure Smokeless tobacco non-user [facility] Start: 07-04-2023 End: 08-18-2023 Alcohol intake Ex-drinker (finding) [facility] Adolescent depressio n screening assessment 5 [facility] The thought of harmi ng myself has occurred to me Never [facility] Start: 1990 Sex Assigned At Female [facility] Start: 07-26-2021 Gender identity Identifies as female gender (finding) [facility] Start: 07-26-2021 Sexual orientation Heterosexual (finding) [facility] Start: 08-01-2023 Tobacco smoking status NHIS Ex-smoker [facility] End: 06-23-2023 History of tobacco use Current smoker [facility] Start: 08-29-2023 Alcohol intake Current drinker of alcohol (finding) [facility] Start: 03-12-2023 Alcohol Comment 1-2 drinks less than monthly in the past year, Caffeine intake: 2-3 cups per day coffee [facility] Start: 1990 Sex Assigned At Not on file [facility] Clinical Notes 05-02-2021 to 08-29-2023 Tracey Keith DO - 08/29/2023 10:50 AM ESTTelephone Encounter - Kaylyn Rodríguez - 08/18/2023 12:48 PM ESTTelephone Encounter - Lauren Maldonado MD - 08/18/2023 12:48 PM EST Note Date & Type Note Facility 08-29-2023 History of Presen t illness Narrative Reason for Appointment: Patient ID: Juanjose Geronimo is a 33 y.o. female who presents for ER Follow-up Patient presents today for Follow up to discuss results appointment. Current Medications: has a current medication list which includes the following prescription(s): ibuprofen. Medical History: Active Ambulatory Problems Diagnosis Date Noted No Active Ambulatory Problems Resolved Ambulatory Problems Diagnosis Date Noted No Resolved Ambulatory Problems No Additional Past Medical History Family History Problem Relation Name Age of Onset Dwarfism Mother Anxiety disorder Mother Depression Mother Heart disease Maternal Grandmother Other (tumors) Maternal Grandmother Social History Tobacco Use Smoking status: Every Day Packs/day: .25 Types: Cigarettes Start date: 04/23/2012 Smokeless tobacco: Not on file Substance Use Topics Alcohol use: Yes Comment: 1-2 drinks less than monthly in the past year, Caffeine intake: 2-3 cups per day coffee Drug use: Never Past Surgical History: Procedure Laterality Date ADENOIDECTOMY 2007 SECTION, LOW TRANSVERSE 07/29/2021 DILATION AND CURETTAGE OF UTERUS 08/18/2023 GALLBLADDER SURGERY 2016 TONSILLECTOMY 2007 Allergies Allergen Reactions Amoxicillin Hives and Rash Review of Systems: Review of Systems Constitutional: Negative. HENT: Negative. Eyes: Negative. Respiratory: Negative. Cardiovascular: Negative. Gastrointestinal: Negative. Genitourinary: Positive for menstrual problem and pelvic pain. Musculoskeletal: Negative. Skin: Negative. Neurological: Negative. All other systems reviewed and are negative. Hematological: Negative. Endocrine: Negative. Allergic/Immunologic: Negative. Objective Physical Exam Constitutional: Appearance: Normal appearance. She is well-developed. Cardiovascular: Rate and Rhythm: Normal rate and regular rhythm. Pulmonary: Effort: Pulmonary effort is normal. Breath sounds: Normal breath sounds. Abdominal: General: Bowel sounds are normal. There is no distension. Palpations: Abdomen is soft. Tenderness: There is no abdominal tenderness. There is no guarding or rebound. Musculoskeletal: General: No swelling. Normal range of motion. Right lower leg: No edema. Left lower leg: No edema. Neurological: Mental Status: She is alert and oriented to person, place, and time. Skin: General: Skin is warm and dry. Psychiatric: Mood and Affect: Mood normal. Behavior: Behavior normal. Vitals and nursing note reviewed. Exam conducted with a planting machine crewman present. Vitals: Estimated body mass index is 31.23 kg/m as calculated from the following: Height as of this encounter: 5' 7 . Weight as of this encounter: 199 lb 6.4 oz. BP: 104/60 No LMP recorded. Assessment/Plan Encounter Diagnosis Name Primary? S/P D&C (status post dilation and curettage) Pt had D&C with suction at another hospital- pt still having bleeding and ultrasound at ER showed products of conception. Pelvic exam performed. Pt given ultrasound to have obtained. Pt to be set up for D&C with suction. Signed consents. Pt to report to OR. Documented by Angelia Skelton LPN on behalf of: Tracey Keith DO documented in this encounter [facility] 08-18-2023 Miscellaneous Notes Formattin g of this note might be different from the original. Adri at [facility] states they do not have the generic methergine prescribed for Pt. Adri states she called 2 other Pharmacies in [facility] & they do not have it either. Please send alternate medication RX to [facility]. Advised Adri at [facility] Pt would be called when new RX is sent. IS NONE DISREGARD AT THIS POINT THANK YOU Pt left on 08/18 at 4:22pm, but phones were not forwarded yet. Have tried calling Pt 3 times this morning, but no answer and no VM set up. Pt called in stating that she still was unable to coal picker medication from Pharmacy and wanted to [...] to this information. documented in this encounter [facility] 08-18-2023 Telephone encount er Note Adri at [facility] states they do not have the generic methergine prescribed for Pt. Adri states she called 2 other Pharmacies in town & they do not have it either. Please send alternate medication RX to [facility]. Advised Adri at [facility] Pt would be called when new RX is sent. [facility] 08-18-2023 Telephone encount er Note IS NONE DISREGARD AT THIS POINT THANK YOU [facility] 08-18-2023 Telephone encount er Note Pt left VM on 08/18 at 4:22pm, but phones were not forwarded yet. Have tried calling Pt 3 times this morning, but no answer and no VM set up. [facility] 08-18-2023 Telephone encount er Note Pt called in stating that she still was unable to coal picker medication from Pharmacy and wanted to [...] evaluation. Pt was agreeable to this information. 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 Dr. Maldonado would like a CBC & [...] & screen drawn. documented in this encounter [facility] 08-17-2023 Telephone encount er Note Per Dr. Baker patient needs to be schedule for surgery with her or Dr. Maldonado for a missed ab & retained products of conception. Sugar talked to Dr. Maldonado & Dr. 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 Dr. Maldonado would like a CBC & [...] to have the type & screen drawn. [facility] 08-17-2023 History of Presen t illness Narrative Ordered Type and Screen per Dr Maldonado documented in this encounter [facility] 08-17-2023 Miscellaneous Notes Addended by: DEVEN VALADEZ on: 08/17/2023 01:20 PM Modules accepted: Orders documented in this encounter [facility] 08-17-2023 Note Addended by: DEVEN VALADEZ on: 08/17/2023 01:20 PM Modules accepted: Orders [facility] 08-15-2023 History of Presen t illness Narrative HCG and CBC ordered documented in this encounter [facility] 08-09-2023 History of Presen t illness Narrative Order placed for hCG as we're trending after SAB. Pt. Notified via [employer] and has been seen in the office in the last week by Dr. Baker. RY [facility] 08/09/23 0846 documented in this encounter [facility] 08-03-2023 History of Presen t illness Narrative Prescription for Motrin placed documented in this encounter [facility] 08-03-2023 Miscellaneous Notes Formattin g of this note might be different from the original. Pt states she was told at her appointment on that a RX for Motrin would be sent to [facility]. Pt went to [facility] today & there wasn't a RX for her to coal picker. Please advise. Thank you Unable to reach Pt. Advised Pt RX was sent. documented in this encounter [facility] 08-03-2023 Telephone encount er Note Pt states she was told at her appointment on that a RX for Motrin would be sent to [facility]. Pt went to [facility] today & there wasn't a RX for her to coal picker. Please advise. Thank you [facility] 08-03-2023 Telephone encount er Note Unable to reach Pt. [facility] 08-03-2023 Telephone encount er Note Advised Pt RX was sent. [facility] 08-01-2023 History of Presen t illness Narrative Subjective Patient ID: Juanjose Geronimo is a pleasant 33 y.o. female who presents today for follow-up of spontaneous . Patient had an SAB in early June. She was seen and treated initially at [place] emergency room, and has been following here [...] some tissue still in her uterus at [place]. This was 1 month ago. She has [...] products of conception. documented in this encounter [facility] 07-28-2023 Miscellaneous Notes Formattin g of this note might be different from the original. Called and left vm for pt to call office back regarding her HCG that was done 07/25/23. Pt will need to have more drawn until they are less than 5 documented in this encounter [facility] 07-28-2023 Telephone encount er Note Called and left vm for pt to call office back regarding her HCG that was done 07/25/23. Pt will need to have more drawn until they are less than 5 [facility] 05-02-2021 Evaluation note Encounter Date Diagnosis Assessment [...] Patient care instructions given in writting by [facility] document. [facility] Other Evaluation note* Diagnosis SAB (spontaneous )- Primary Unspecified spontaneous without mention of complication Low back pain, unspecified back pain laterality, unspecified chronicity, unspecified whether sciatica present [facility] Diagnosis Acute bilateral low back pain without sciatica- Primary documented in this encounter [facility]* Diagnosis SAB (spontaneous )- Primary Unspecified spontaneous without mention of complication [facility] Diagnosis SAB (spontaneous )- Primary Unspecified spontaneous without mention of complication [facility] Diagnosis Missed - Primary Pre-op testing Unspecified pre-operative examination documented in this encounter [facility]* Diagnosis S/P D&C (status post dilation and curettage) Other postprocedural status [facility] N[facility] - Reported* Type Description Date Surgical History tonsillectomy and adenoidectomy Surgical History C section Surgical History cholecystectomy [facility] Other InstructionsNot on filedocumented in this encounter [facility] filedocumented in this [facility] System[facility]ructionsNot on filedocumented in this [facility] System[facility]ructionsNot on filedocumented in [facility] System[facility]ructionsNot on filedocumented in this encounter [facility]Not on filedocumented in this encounter [facility] Summary Purpose Family History No Family [...] and content) DATE CREATED AUTHOR 10/05/2021 [facility] DATE CREATED AUTHOR AUTHOR'S ORGANIZ ATION 08/20/2023 [facility] DATE CREATED AUTHOR AUTHOR'S ORGANIZ ATION 08/27/2023 [facility] DATE CREATED AUTHOR AUTHOR'S ORGANIZ ATION 08/30/2023 [facility] EPIC REASON FOR VISIT (unrecogniz ed section and content) Reason Comments Follow-up SAB Reason Comments ER Follow-up Care Teams (unrecognized sec tion and content) Robotype Operator Relationship Specialty Start Date End Date Shagufta Nelson DO [address] [place] [address] PCP - General Family Medicine 11/01/22 Robotype Operator Relationship Specialty Start Date End Date Shagufta Nelson DO [address] [place] [address] PCP - General Family Medicine 11/01/22 Robotype Operator Relationship Specialty Start Date End Date Shagufta Nelson DO [address] [place] [address] PCP - General Family Medicine 11/01/22 Robotype Operator Relationship Specialty Start Date End Date Shagufta Nelson DO [address] [place] [address] PCP - General Family Medicine 11/01/22 Robotype Operator Relationship Specialty Start Date End Date Shagufta Nelson DO [address] [place] [address] PCP - General Family Medicine 11/01/22 Robotype Operator Relationship Specialty Start Date End Date Shagufta Nelson DO [address] [place] [address] PCP - General Family Medicine 08/29/23 FOR RECORDS PERTAINING TO PATIENTS WHO ARE [...] BE BASED ON THE PRIMARY CLINICAL RECORDS. [facility] [employer] [facility]. provides no warranty or guarantee of the accuracy or completeness of information in this document.
[2023-12-21] MEDS: BENZOCAINE 30 ML, lidocaine HCL 15 ML MM (20:41)
== END 2023-12-21 20:48 | disposition home or self-care (01) ==
PROVIDERS: Emergency Provider Emergency Medicine
DX: K02.9 Dental caries, unspecified (principal); K08.89 Other specified disorders of teeth and supporting structures; F17.210 Nicotine dependence, cigarettes, uncomplicated
CPT/HCPCS: 99282

== ENCOUNTER 2024-06-13 16:03 | Emergency (ER) | payer OTHER, SELFPAY ==
[2024-06-13 16:06] VITALS: BP 116/92; PULSE 112; TEMP 36.7; O2SAT 98; BMI 32.9
--- OUTSIDE RECORDS SUMMARY | 2024-06-13 16:26 | XMS_ITS | CCD ---
Author Organization [facility] Care Team Providers Care Money Market Dealer Name Role Phone REQUEST, DR NONE LISTED Primary Care Unavaila juventino ALDANA, DR ZACK Do Admitting Unavailable GRECHNY, ERICKA DIAZ Consulting Unavailable JOVAN, DR ZACK Do Attending [...] Primary Care Unavailable ERICA, LAUREN Admitting Unavailable ERICA, LAUREN Attending Unavailable ERICA, LAUREN Referring Unavailable RUMSCHLAG, SHAGUFTA K Primary Care Unavailable RAIN BOX Attending Unavailable RUMSCHLAG, SHAGUFTA K Primary Care Unavailable TRACEY KEITH Attending Unavailable Shagufta Heredia DO Primary Care Provider Allergies Allergy Classification [...] ml as needed Orally every 6 hrs 10 Apr, 2021 Active doxycycline hyclate 100 mg oral capsule [...] tablet (9 sources) Nonsteroidal Anti-inflammatory Drug Start: take 1 tablet by mouth every eight hours as needed for pain ibuprofen 800 MG tablet Take 800 mg by mouth every 8 (eight) hours if needed for moderate pain 0 08/03/2023 Active methylergonovine maleate 0.2 mg oral tablet (1 source) Ergot Derivative Start: take 1 tablet by mouth every six hours methylergonovine (METHERGINE) 0.2 mg tablet Take 1 tablet (200 mcg total) by mouth every 6 (six) hours. 12 tablet 0 08/18/2023 Active ondansetron 4 mg disintegrating oral tablet (9 sources) Serotonin-3 Receptor Antagonist Start: ondansetron ODT (ZOFRAN ODT) 4 mg disintegrating [...] Surgical Pathologyon 024 Surgical Pathology Normal [facility] Comment on above: Result Comment: [facility] [address] [place] [address] Surgical Pathology Consultation Patient Name:JUANJOSE GERONIMO:1990 (Age: 33)Gender:FTaken:4Reported:4Physician(s):Lauren Maldonado M.D. ([phone])Copy To: Rec. #:[id number]: #[id number] Final Pathologic Diagnosis Products of conception: Abundant blood clot admixed with fragments of hemorrhagic and focally necrotic decidual tissue and secretory endometrium. Occasional immature chorionic villi identified. The findings are consistent with retained products of conception. Report Electronically Signed Out ao/08/23/2023flory Benton MD [place] [address], License number: [id number]. Clinical History Missed AB, retained products of conception. Gross Description Received in formalin labeled JUANPABLO, uterus Karyotype: No Aggregate measurement: 6.1 x 4.8 x 1.2 cm Placenta: No Decidua/Clot: 6.1 x 4.8 x 1.2 cm Gestational Sac: No Tissue: No Molar Tissue: No Cassettes: A-E decidua/clot (5, ss, [id number],m6) DM dm/08/18/2023O Specimen(s) Received Products of conception Fee Codes(s): 1; 73114 CBC AND AUTO DIFFon 08-17-19 24 ABSOLUTE BASOPHIL 0.0 X10E9/L Normal 0.0-0.2 [facility] Comment on above: Performed By: #### C ORLANDO CMP, #### [facility] ([id number]) [address] [place] [address], [address] [place] [address] ABSOLUTE NEUTROPHIL 3.6 X10E9/L Normal 1.5-6.6 [facility] Comment on above: Performed By: #### C ORLANDO CMP, #### [facility] ([id number]) [address], [address] [place] [address] Basophils/100 WBC (Bld) 0.4 % Normal [facility] Comment on above: Performed By: #### C ORLANDO, CMP, #### [facility] ([id number]) [address], [address] [place] [address] Eosinophils (Bld) [#/Vol] 0.1 10*3/uL Normal 0.0-0.[address] [facility] Comment on above: Performed By: #### Judi PERRY CMP, #### [facility] ([id number]) [address], [address] [place] [address] Eosinophils/100 WBC (Bld) 1.8 % Normal [facility] Comment on above: Performed By: #### Judi PERRY CMP, #### [facility] ([id number]) [address], [address] [place] [address] Erythrocyte distribution width (RBC) [Ratio] 13.8 % Normal 11.5-15.[address] [facility] Comment on above: Performed By: #### Judi PERRY, CMP, #### [facility] ([id number]) [address], [address] [place] [address] Hematocrit (Bld) [Volume fraction] 37.7 % Normal 35-[address] [facility] Comment on above: Performed By: #### Judi PERRY, CMP, #### [facility] ([id number]) [address], [facility] [address] [place] [address] Hemoglobin (Bld) [Mass/Vol] 12.5 g/dL Normal 11.7-15.[address] [facility] Comment on above: Performed By: #### Judi PERRY, CMP, #### [facility] ([id number]) [address], [address] [place] [address] Lymphocytes (Bld) [#/Vol] 2.3 10*3/uL Normal 1.0-3.[address] [facility] Comment on above: Performed By: #### Judi BCA, CMP, #### [facility] ([id number]) [address], [facility] [address] [place] [address] Lymphocytes/100 WBC (Bld) 35.7 % Normal [facility] Comment on above: Performed By: #### C BCA, CMP, #### [facility] ([id number]) [address], [facility] [address] [place] [address] MCH (RBC) [Entitic mass] 29.9 pg Normal 27-[address] [facility] Comment on above: Performed By: #### Judi PERRY, CMP, #### [facility] ([id number]) [address], [address] [place] [address] MCHC (RBC) [Mass/Vol] 33.2 g/dL Normal 32-[address] [facility] Comment on above: Performed By: #### Judi BCA, CMP, #### [facility] ([id number]) [address], [facility] [address] [place] [address] MCV (RBC) [Entitic vol] 90 fL Normal 80-[address] [facility] Comment on above: Performed By: #### Judi BCA, CMP, #### [facility] ([id number]) [address], [address] [place] [address] Monocytes (Bld) [#/Vol] 0.4 10*3/uL Normal 0-0.[address] [facility] Comment on above: Performed By: #### Judi BCA, CMP, #### [facility] ([id number]) [address], [address] [place] [address] Monocytes/100 WBC (Bld) 5.8 % Normal [facility] Comment on above: Performed By: #### C ORLANDO CMP, #### [facility] ([id number]) [address], [facility] [address] [place] [address] Neutrophils/100 WBC (Bld) 56.3 % Normal [facility] Comment on above: Performed By: #### Judi PERRY CMP, #### [facility] ([id number]) [address] [address] [place] [address] Platelet mean volume (Bld) [Entitic vol] 8.7 fL Normal 7-[address] [facility] Comment on above: Performed By: #### Judi PERRY CMP, #### [facility] ([id number]) [address], [facility] [address] [place] [address] Platelets (Bld) [#/Vol] 244 10*3/uL Normal 150-[address] [facility] Comment on above: Performed By: #### Judi PERRY CMP, #### [facility] ([id number]) [address] [address] [place] [address] RBC COUNT 4.18 X10E12/L Normal 3.80-5.[address] [facility] Comment on above: Performed By: #### Judi PERRY CMP, #### [facility] ([id number]) [address] [address] [place] [address] WBC (Bld) [#/Vol] 6.5 10*3/uL Normal 4.0-11.0 [facility] Comment on above: Performed By: #### C ORLANDO, CMP, #### [facility] ([id number]) [address], [address] [place] [address] COMPREHENSIVE METABOLIC PANE Cirilo 08-17-2023 Albumin [Mass/Vol] 4.5 g/dL Normal 3.2-5.3 [facility] Comment on above: Performed By: #### C BCA, CMP, #### [facility] ([id number]) [address], [address] [place] [address] ALP [Catalytic activity/Vol] 52 U/L Normal 39-[address] [facility] Comment on above: Performed By: #### C BCA, CMP, 99776-0 #### [facility] ([id number]) [address], [address] [place] [address] ALT [Catalytic activity/Vol] 22 U/L Normal 0-[address] [facility] Comment on above: Performed By: #### C BCA, CMP, #### [facility] ([id number]) [address], [address] [place] [address] Anion gap [Moles/Vol] 6 mmol/L Normal 5-[address] [facility] Comment on above: Performed By: #### C BCA, CMP, #### [facility] ([id number]) [address], [address] [place] [address] AST [Catalytic activity/Vol] 14 U/L Normal 0-[address] [facility] Comment on above: Performed By: #### C BCA, CMP, #### [facility] ([id number]) [address], [address] [place] [address] Bilirubin [Mass/Vol] 0.4 mg/dL Normal 0.3-1.[address] [facility] Comment on above: Performed By: #### C BCA, CMP, #### [facility] ([id number]) [address], [address] [place] [address] Calcium [Mass/Vol] 8.8 mg/dL Normal 8.5-10.5 [facility] Comment on above: Performed By: #### C BCA, CMP, #### [facility] ([id number]) [address], [address] [place] [address] Chloride [Moles/Vol] 105 mmol/L Normal 98-[address] [facility] Comment on above: Performed By: #### C ORLANDO [facility], #### [facility] ([id number]) [address], [address] [place] [address] CO2 [Moles/Vol] 27 mmol/L Normal 22-[address] [facility] Comment on above: Performed By: #### C ORLANDO [facility], #### [facility] ([id number]) [address], [address] [place] [address] Creatinine [Mass/Vol] 0.74 mg/dL Normal 0.40-1.[address] [facility] Comment on above: Result Comment: METH OD TRACEABLE TO IDMS STANDARD Performed By: #### C ORLANDO [facility], #### [facility] ([id number]) [address], [address] [place] [address] eGFR (CKD-EPI) NON-RACE DEPENDENT >90 Normal >[address] [facility] Comment on above: Result Comment: Reported eGFR is based on the CKD-EPI 2020 equation that does not use a race coefficient. Performed By: #### C AMY PERRY, #### [facility] ([id number]) [address], [address] [place] [address] Glucose [Mass/Vol] 86 mg/dL Normal 65-99 [facility] Comment on above: Performed By: #### C AMY PERRY, #### [facility] ([id number]) [address], [address] [place] [address] Potassium [Moles/Vol] 4.4 mmol/L Normal 3.5-5.[address] [facility] Comment on above: Performed By: #### C AMY PERRY, #### [facility] ([id number]) [address], [address] [place] [address] Protein [Mass/Vol] 7.2 g/dL Normal 6.0-8.0 [facility] Comment on above: Performed By: #### C BCA, CMP, #### [facility] ([id number]) [address], [address] [place] [address] Sodium [Moles/Vol] 138 mmol/L Normal 134-146 [facility] Comment on above: Performed By: #### C BCA, CMP, 07790-7 #### [facility] ([id number]) [address], [address] [place] [address] Urea nitrogen [Mass/Vol] 13 mg/dL Normal 5-[address] [facility] Comment on above: Performed By: #### C BCA, CMP, 65169-2 #### [facility] ([id number]) [address], [address] [place] [address] HCG.beta subunit IA 3rd IS Q non 08-17-2023 HCG.beta subunit Qn 12 m[IU]/mL Normal [facility] Comment on above: Result Comment: NEW REFERENCE [...] nontrophoblastic neoplasms. Performed By: #### C BCA, CMP, 85261-1 #### [facility] ([id number]) [address], [address] [place] [address] Type and screen(includes ind irect vero)on 08-17-2023 [...] Pablo MD on 08/14/2023 1:49 PM Normal [facility] HCG.beta subunit IA 3rd IS Q non 08-08-2023 HCG.beta subunit Qn 17 m[IU]/mL Normal [facility] Comment on above: Result Comment: NEW REFERENCE [...] neoplasms. Performed By: #### 2 0415-6 #### [facility] ([id number]) [address] [place] [address], [address] [place] [address] HCG.beta subunit IA 3rd IS Q non 08-01-2023 HCG.beta subunit Qn 24 m[IU]/mL Normal [facility] Comment on above: Result Comment: NEW REFERENCE [...] neoplasms. Performed By: #### 2 0415-6 #### [facility] ([id number]) [address] [place] [address], [address] [place] [address] HCG.beta subunit IA 3rd IS Q non 07-25-2023 HCG.beta subunit Qn 31 m[IU]/mL Normal [facility] Comment on above: Result Comment: NEW REFERENCE [...] neoplasms. Performed By: #### 2 0415-6 #### [facility] ([id number]) [address] [place] [address], [address] [place] [address] HCG.beta subunit IA 3rd IS Q non 07-18-2023 HCG.beta subunit Qn 39 m[IU]/mL Normal [facility] Comment on above: Result Comment: NEW REFERENCE [...] neoplasms. Performed By: #### 2 0415-6 #### [facility] ([id number]) [address] [place] [address], [address] [place] [address] HCG.beta subunit IA 3rd IS Q non 07-10-2023 HCG.beta subunit Qn 47 m[IU]/mL Normal [facility] Comment on above: Result Comment: NEW REFERENCE [...] neoplasms. Performed By: #### 2 0415-6 #### [facility] ([id number]) [address] [facility], [address] [place] [address] COVID Quick Testingon 2020 Result Negative [employer] Other Quick Strepon 05-02-2021 S. pyogenes Org specific cx Ql (Throat) Negative [employer] Other Quick Strep [employer] Other Vital Signs Date Time Vital Sign Value Performing Clinician Facility 08-29-2023 10:36-0500 Body height 170.2 cm [employer] Work Phone: [facility] 08-29-2023 10:36-0500 Body mass index (BMI) [Ratio] 31.23 kg/m2 Tracey Inna [employer] Work Phone: [facility] 08-29-2023 10:36-0500 Body weight 90.45 kg Tracey Inna [employer] Work Phone: [facility] 08-29-2023 10:36-0500 Diastolic blood pressure 60 mm[Hg] Tracey Inna DO Work Phone: [facility] 08-29-2023 10:36-0500 Systolic blood pressure 104 mm[Hg] Tracey Inna [employer] Work Phone: [facility] 08-01-2023 10:34-0500 Body mass index (BMI) [Ratio] 30.85 kg/m2 Stacia Baker DO Work Phone: [facility] 08-01-2023 10:34-0500 Body weight 89.36 kg Stacia Baker DO Work Phone: [email or web address] 08-01-2023 10:34-0500 Diastolic blood pressure 48 mm[Hg] Stacia Baker DO Work Phone: [employer] 08-01-2023 10:34-0500 Systolic blood pressure 100 mm[Hg] Stacia Baker DO Work Phone: [employer] 05-02-2021 12:00-0400 Body height 170.18 cm Sheryl Silva Other [employer] Other 05-02-2021 12:00-0400 Body mass index (BMI) [Ratio] 32.42 kg/m2 Sheryl Silva Other [employer] Other 05-02-2021 12:00-0400 Body temperature 97.5 [degF] Sheryl Silva Other [employer] Other 05-02-2021 12:00-0400 Body weight 93.9 kg Sheryl Silva Other [employer] Other 05-02-2021 12:00-0400 SaO2% (BldA) [Mass fraction] 99 % Sheryl Silva Other [employer] Other Encounters Encounter Date Encounter Type Care Provider Facility Start: 08-29-2023 End: 08-29-2023 ambulatory TRACEY INNA Not Available Start: 08-29-2023 End: 08-29-2023 Office outpatient visit 15 minutes Tracey Inna DO Work Phone: [facility] Comment on above: S/P D&C (status post dilation and curettage) Start: 08-18-2023 Telephone encounter Lauren ontiveros MD Work Phone: [facility] Start: 08-18-2023 End: 08-18-2023 Evaluation and management of inpatient RAIN BOX [facility] Start: 08-18-2023 End: 08-18-2023 Evaluation and management of inpatient [facility] Start: 08-17-2023 Encounter for other preprocedural examination [facility] Start: 08-17-2023 End: 08-18-2023 Orders Only Deven Valadez CMA [facility] Comment on above: Missed (Anabelle emanuel Dx); Pre-op testing Start: 08-17-2023 Patient encounter status Deven higgins [facility] Start: 08-15-2023 Orders Only Stacia Baker DO Work Phone: [facility] Comment on above: SAB (spontaneous abo rtion) (Primary Dx) Start: 08-14-2023 End: 08-15-2023 ambulatory [facility] Start: 08-09-2023 Orders Only Shahana Wyatt [facility] [employer] Work Phone: [facility] Comment on above: SAB (spontaneous abo rtion) (Primary Dx) Start: 08-08-2023 End: 08-09-2023 ambulatory [facility] Start: 08-03-2023 Orders Only Stacia Baker DO Work Phone: [facility] Comment on above: Acute bilateral low back pain without sciatica (Primary Dx) Start: 08-01-2023 End: 08-02-2023 ambulatory [facility] Start: 08-01-2023 End: 08-01-2023 Office outpatient visit 15 minutes Stacia Baker DO Work Phone: [facility] Comment on above: SAB (spontaneous abo rtion) (Primary Dx); Low back pain, unspecified back pain laterality, unspecified chronicity, unspecified whether sciatica present Start: 07-28-2023 Telephone encounter Deven Lau MA [facility] Start: 07-25-2023 End: 07-26-2023 ambulatory SHAGUFTA K [facility] Start: 07-18-2023 End: 07-19-2023 ambulatory SHAGUFTA Tello [facility] Start: 07-10-2023 End: 07-11-2023 ambulatory LAUREN MALDONADO [facility] Start: 05-02-2021 Office outpatient vi sit 15 minutes Sheryl [facility] Start: 02-22-2020 End: 02-23-2020 ambulatory NONE LISTED REQUEST Facility:H1 Procedures Date Procedure Procedure Detail Performing Clinician Start: 08-17-2023 Antibody screen Deven Valadez [facility] Start: 08-01-2023 Follow-up visit Follow-up STACIA BAKER Start: 04-12-2023 Adult depression screening assessment Deven Valadez [employer] Start: 03-02-2020 Microscopic observat ion [Identifier] in Cervix by Cyto stain Deven Valadez [facility] Start: 07-31-2019 H/O: section S/P s ection Deven Valadez [facility] H/O: surgery S/P D&C (status post dilation and curettage) Tracey Keith DO Work Phone: Plan of Treatment Date Care Activity Detail Author Start: 08-18-2024 Adult BMI Screening Adult BMI Screen ing [facility] Start: 08-18-2024 Tobacco Screening Tobacco Screening [facility] Start: 08-17-2024 Tobacco Screening Tobacco Screening [facility] Start: 08-01-2024 Adult BMI Screening Adult BMI Screen ing [facility] Start: 08-01-2024 Tobacco Screening Tobacco Screening [facility] Start: 07-04-2024 Adult BMI Screening Adult BMI Screen ing [facility] Start: 07-04-2024 Tobacco Screening Tobacco Screening [facility] Start: 04-12-2024 Depression Screening Depression Scre ening [facility] Start: 08-29-2023 End: 08-29-2024 US Pelvis transvaginal US pelvis transvaginal Imaging Routine S/P D&C (status post dilation and curettage) Expected: 08/29/2023 (Approximate), Expires: 08/29/2024 [facility] Work Phone: Comment on above: Expected: 08/29/2023 (Approximate), Expires: 08/29/2024 Start: 08-18-2023 End: 08-18-2023 Admission to same day surgery center 08/18/2023 9:00 AM EST - 08/18/2023 10:[address] [facility] [address] [place] [id number] Lauren Maldonado MD [address] [place], [place] [id number] DILATION CURETTAGE SUCTION [08085 (CPT )] [facility] Comment on above: DILATION CURETTAGE S UCTION [00538 (CPT )] Start: 08-18-2023 End: 08-18-2023 Anesthesia consultation 08/18/2023 9:00 AM EST Anesthesia Event [facility] [address] [place] [phone] Rain Box MD [address] [place] [address] [facility] Start: 08-18-2023 End: 08-18-2023 Dilation & curettage dx&/ther nonobstetric DILATION CURETTAGE SUCTION missed AB, retained products of conception 08/18/2023 9:00 AM [facility] Start: 08-18-2023 Subsequent hospital visit by physician 08/18/2023 9:00 AM EST Hospital Encounter [facility] [address] [place] [phone] Lauren Maldonado MD [address] [place] [address] [facility] Start: 08-17-2023 End: 08-17-2023 Telemedicine consultation with patient 08/17/2023 10:00 AM EST Telemedicine [facility] [address] [place] [phone] Stacia Baker DO [address] [place], [place] [id number] [facility] Start: 08-16-2023 End: 08-09-2024 hCG, quantitative, hCG, quantitative, Lab Routine SAB (spontaneous ) Expected: 08/16/2023 (Approximate), Expires: 08/09/2024 [facility] Work Phone: Comment on above: Expected: 08/16/2023 (Approximate), Expires: 08/09/2024 Start: 08-15-2023 End: 08-15-2023 Patient encounter procedure 08/15/2023 1:30 PM EST Office Visit [facility] [address] [place] [address] [place] [phone] Stacia Baker DO [facility] [place], [place] [id number] [facility] Start: 08-01-2023 End: [...] AM EST Office Visit [facility] [address] [place] [address] [place] [address] Stacia Baker DO [address] [place] [address] [facility] Start: 04-11-2023 Adult BMI Follow Up Plan Adult BMI Follow Up Plan [facility] Start: 03-24-2023 Influenza vaccination Influenza Vacc ine [facility] Start: 03-02-2023 Screening for malign ant neoplasm of cervix Pap Smear [facility] Start: 2009 DTaP,Tdap and Td Vac cines (1 - Tdap) DTaP,Tdap and Td Vaccines (1 - Tdap) [facility] Start: 1990 Tobacco Counseling Tobacco Counselin g [facility] End: 08-15-2024 CBC W Auto Differential panel - Blood CBC auto differential Lab Routine SAB (spontaneous ) 1 Occurrences starting 08/15/2023 until 08/15/2024 [facility] Work Phone: Comment on above: 1 Occurrences starti ng 08/15/2023 until 08/15/2024 End: 08-15-2024 hCG, quantitative, hCG, quantitative, Lab Routine SAB (spontaneous ) 1 Occurrences starting 08/15/2023 until 08/15/2024 [facility] Comment on above: 1 Occurrences starti ng 08/15/2023 until 08/15/2024 Immunizations Immunization Date Immunization Notes Care Provider Fa cilinoris NEGATED: Highlighted row has not occurred!07-30-2019 measles, mumps and rubella virus vaccine Deven Valadez [facility] Comment on above: Deferred: - IMMUNE Deferred: Other - IM MUNE NEGATED: Highlighted row has not occurred!07-30-2019 tetanus toxoid, reduced diphtheria toxoid, and acellular pertussis vaccine, adsorbed Deven Valadez [facility] Payers Date Payer Category Payer Private Health Insurance [facility] [id number] 2022-Present [phone] [address] [place] [address] [id number] 2022 Medicaid [employer] [place] [id number] 2022-Present [address] [place] [address] [id number] 2022 Private Health Insurance [id number] 1990 Unknown [id number] 2.16.840.1.042070.3.579. 2.593 1990 Unknown [id number] 2.16.840.1.691833.3.579. 2.1286 1990 Unknown [id number] 2.16.840.1.572020.3.579. 2.1286 1990 Unknown [id number] 2.16.840.1.663263.3.579. 2.1286 1990 Unknown [id number] 2.16.840.1.623245.3.579. 2.128 1990 Unknown [id number] 2.16.840.1.007525.3.579. 2.1286 1990 Unknown [id number] 2.16.840.1.226562.3.579. 2.1286 1990 Unknown [id number] 2.16.840.1.398782.3.579. 2.1286 1990 Unknown [id number] 2.16.840.1.295119.3.579. 2.1286 1990 Unknown [id number] 2.16.840.1.138202.3.579. 2.1286 1990 Unknown [id number] 2.16.840.1.300999.3.579. 2.1286 1990 Unknown [id number] 2.16.840.1.243096.3.579. 2.1286 1990 Unknown [id number] 2.16.840.1.959980.3.579. 2.128 1990 Unknown [id number] 2.16.840.1.580096.3.579. 2.1286 1990 Unknown [id number] 1990 Unknown [id number] 1990 Unknown [id number] 1959 Private Health Insurance [id number] Social History Date Type Detail Facility Start: 03-12-2023 End: 07-04-2023 Sex Assigned At [facility] Start: 04-23-2012 End: 03-12-2023 Tobacco smoking status IAIS Smokes tobacco daily [facility] Start: 04-23-2012 End: 06-23-2023 History of tobacco use Cigarette Smoker [facility] Start: 03-30-2021 End: 03-12-2023 Cigarettes smoked current (pack per day) - Reported 0.5 [facility] Start: 03-30-2021 End: 08-01-2023 Tobacco use and exposure Smokeless tobacco non-user [facility] Start: 07-04-2023 End: 08-18-2023 Alcohol intake Ex-drinker (finding) [facility] Adolescent depressio n screening assessment 5 [facility] The thought of harmi ng myself has occurred to me Never [facility] Start: 1990 Sex Assigned At Female [facility] Start: 07-26-2021 Gender identity Identifies as female gender (finding) [facility] Start: 07-26-2021 Sexual orientation Heterosexual (finding) [facility] Start: 08-01-2023 Tobacco smoking status NHIS Ex-smoker [facility] End: 06-23-2023 History of tobacco use Current smoker [facility] Start: 08-29-2023 Alcohol intake Current drinker of alcohol (finding) [facility] Start: 03-12-2023 Alcohol Comment 1-2 drinks less than monthly in the past year, Caffeine intake: 2-3 cups per day coffee [facility] Start: 1990 Sex Assigned At Not on file [facility] Clinical Notes 05-02-2021 to 08-29-2023 Tracey Keith [...] nursing note reviewed. Exam conducted with a injection molder present. Vitals: Estimated body mass index is [...] Tracey Keith DO documented in this encounter [facility] 08-18-2023 Miscellaneous Notes Formattin g of this note might be different from the original. Adri at [facility] states they do not have the generic methergine prescribed for Pt. Adri states she called 2 other Pharmacies in town & they do not have it either. Please send alternate medication RX to [facility]. Advised Adri at [facility] Pt would be called when new RX is sent. IS NONE DISREGARD AT THIS POINT THANK YOU Pt left VM on 08/18 at 4:22pm, but phones were not forwarded yet. Have tried calling Pt 3 times this morning, but no answer and no VM set up. 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 [facility] Telephone encount er Note Adri at [facility] states they do not have the generic methergine prescribed for Pt. Adri states she called 2 other Pharmacies in town & they do not have it either. Please send alternate medication RX to [facility]. Advised Adri at [facility] Pt would be called when new RX is sent. [employer] 08-18-2023 Telephone encount er Note IS NONE DISREGARD AT THIS POINT THANK YOU [facility] 08-18-2023 Telephone encount er Note Pt left VM on 08/18 at 4:22pm, but phones were not forwarded yet. Have tried calling Pt 3 times this morning, but no answer and no VM set up. 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 Pt was agreeable to this information. 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 Dr. Maldonado would like a CBC & Type & Screen ordered for the patient and the patient to be NPO after midnight. Surgery scheduled with [facility] in surgery scheduling for 08/18/23 at 9:00am [...] & screen drawn. documented in this encounter [facility] 08-17-2023 Telephone encount er Note Per Dr. Baker patient needs to be schedule for surgery with her or Dr. Maldonado for a missed ab & retained products of conception. Sugar talked to Dr. Maldonado & Dr. 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 Dr. Maldonado would like a CBC & Type & Screen ordered for the patient and the patient to be NPO after midnight. Surgery scheduled with [facility] in surgery scheduling for 08/18/23 at 9:00am [...] to have the type & screen drawn. [facility] 08-17-2023 History of Presen t illness Narrative Ordered Type and Screen per Dr Maldonado documented in this encounter [facility] 08-17-2023 Miscellaneous Notes Addended by: DEVEN VALADEZ on: 08/17/2023 01:20 PM Modules accepted: Orders documented in this encounter [facility] 08-17-2023 Note Addended by: DEVEN VALADEZ on: 08/17/2023 01:20 PM Modules accepted: Orders [facility] 08-15-2023 History of Presen t illness Narrative HCG and CBC ordered documented in this encounter [facility] 08-09-2023 History of Presen t illness Narrative Order placed for hCG as we're trending after SAB. Pt. Notified via [employer] and has been seen in the office in the last week by Dr. Baker. RY [facility] 08/09/23 [id number] documented in this encounter [facility] 08-03-2023 History of Presen t illness Narrative Prescription for Motrin placed documented in this encounter [facility] 08-03-2023 Miscellaneous Notes Formattin g of this note might be different from the original. Pt states she was told at her appointment on that a RX for Motrin would be sent to [facility]. 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 Please advise. Thank you Unable to reach Pt. Advised Pt RX was sent. documented in this encounter [facility] 08-03-2023 Telephone encount er Note Pt states she was told at her appointment on that a RX for Motrin would be sent to [facility]. 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 Please advise. Thank you [facility] 08-03-2023 Telephone encount er Note Unable to reach Pt. [facility] 08-03-2023 Telephone encount er Note Advised Pt RX was sent. [facility] 08-01-2023 History of Presen t illness Narrative Subjective Patient ID: Juanjose Geronimo is a pleasant 33 y.o. female who presents today for follow-up of spontaneous . Patient had an SAB in early June. She was seen and treated initially at [place] emergency room, and has been following here [...] some tissue still in her uterus at [place]. This was 1 month ago. She has [...] products of conception. documented in this encounter [facility] 07-28-2023 Miscellaneous Notes Formattin g of this note might be different from the original. Called and left vm for pt to call office back regarding her HCG that was done 07/25/23. Pt will need to have more drawn until they are less than 5 documented in this encounter [facility] 07-28-2023 Telephone encount er Note Called and left vm for pt to call office back regarding her HCG that was done 07/25/23. Pt will need to have more drawn until they are less than 5 [facility] 05-02-2021 Evaluation note Encounter Date Diagnosis Assessment [...] Patient care instructions given in writting by [facility] Care At Home document. [employer] Other Evaluation note* Diagnosis SAB (spontaneous )- Primary Unspecified spontaneous without mention of complication Low back pain, unspecified back pain laterality, unspecified chronicity, unspecified whether sciatica present [facility] Diagnosis Acute bilateral low back pain without sciatica- Primary [facility] Diagnosis SAB (spontaneous )- Primary Unspecified spontaneous without mention of complication [facility] Diagnosis SAB (spontaneous )- Primary Unspecified spontaneous without mention of complication [facility]* Diagnosis Missed - Primary Pre-op testing Unspecified pre-operative examination [facility] Diagnosis S/P D&C (status post dilation and curettage) Other postprocedural status [facility] - Reported* Type Description Date Surgical History tonsillectomy and adenoidectomy Surgical History C section Surgical History cholecystectomy [employer] Other InstructionsNot on filedocumented in this encounter [facility] System[facility]Not on filedocumented in this encounter [facility] SystemInstructionsNot on filedocumented in this encounter [facility] SystemInstructionsNot on filedocumented in this encounter [facility] on filedocumented in this [facility] on filedocumented in this encounter [facility] Summary Purpose Family History No Family [...] and content) DATE CREATED AUTHOR 10/05/2021 [facility] DATE CREATED AUTHOR AUTHOR'S ORGANIZ ATION 08/20/2023 [facility] DATE CREATED AUTHOR AUTHOR'S ORGANIZ ATION 08/27/2023 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 Relationship Specialty Start Date End Date Shagufta Heredia DO [address] [place] [address] PCP - General Family Medicine 11/01/22 Money Market Dealer Relationship Specialty Start Date End Date Shagufta Heredia DO [address] [place] [address] PCP - General Family Medicine 11/01/22 Money Market Dealer Relationship Specialty Start Date End Date Shagufta Heredia DO [address] [place] [address] PCP - General Family Medicine 11/01/22 Money Market Dealer Relationship Specialty Start Date End Date Shagufta Heredia DO [address] [place] [address] PCP - General Family Medicine 11/01/22 Money Market Dealer Relationship Specialty Start Date End Date Shagufta Herdeia DO [address] [place] [address] PCP - General Family Medicine 11/01/22 Money Market Dealer Relationship Specialty Start Date End Date Shagufta Heredia DO [address] [facility] [address] PCP - General Family Medicine 08/29/23 FOR [...] BE BASED ON THE PRIMARY CLINICAL RECORDS. [employer] [facility]. provides no warranty or guarantee of the accuracy or completeness of information in this document.
--- NOTE | 2024-07-03 09:36 | ED.GENADUL1 ---
HPI HPI - General Adult General Chief complaint: Neck Pain/Injury Stated complaint: NECK PAIN Time Seen by Provider: 06/13/24 16:08 Source: patient Mode of arrival: walk-in Limitations: no limitations History of Present Illness HPI narrative: Patient presents to ED complaining of neck pain. No known injury. She has tightness and pain in her neck muscles that radiate into the trapezius area. Again no fall no injury. No upper extremity weakness. No other complaints at this time. Related Data Home Medications ?Medication ?Instructions ?Recorded ?Confirmed doxycycline hyclate 100 mg capsule 100 mg PO Q12H 08/24/23 08/24/23 ibuprofen 800 mg tablet 800 mg PO Q8H 12/21/23 12/21/23 norethindrone 1 mg-ethinyl 1 tab PO DAILY 12/21/23 12/21/23 estradiol 20 mcg (21)-iron 75 mg (7) tablet (Brooke Fe 08/12 ()) Previous Rx's ?Medication ?Instructions ?Recorded clindamycin HCl 150 mg capsule 300 mg (2 x 150 mg) PO Q6H 10 days 12/21/23 #80 caps ketorolac 10 mg tablet 10 mg PO TID PRN pain #10 tabs 12/21/23 cyclobenzaprine 10 mg tablet 10 mg PO TID #10 tabs 06/13/24 Allergies Allergy/AdvReac Type Severity Reaction Status Date / Time amoxicillin AdvReac Mild Rash Verified 06/13/24 16:11 Opioid HPI Opioid Management Most Recent Opioid Data: No Data to Display Review of Systems ROS Status of ROS 10 or more systems reviewed and unremarkable except as noted in history and below PFSH PFSH Social History Smoking status: Current every day smoker Little interest or pleasure in doing things: not at all Feeling down, depressed, or hopeless: not at all Exam Narrative Exam Narrative: General: alert, no acute distress Cardiovascular: regular rate and rhythm, normal peripheral perfusion. Respiratory: Lungs CTA, respirations non labored. Extremities: no deformity, no trauma. Neurological: oriented x 4, LOC appropriate for age. Bilateral paraspinal cervical muscle tenderness and trapezius muscle tenderness. No midline tenderness. Normal distal pulses and sensation and strength in the upper extremities. Constitutional Vital Signs, click to edit/add: Last Vital Signs Temp 98.1 F 06/13/24 16:06 Pulse 112 H 06/13/24 16:06 Resp 20 06/13/24 16:06 BP 116/92 H 06/13/24 16:06 Pulse Ox 98 06/13/24 16:06 O2 Del Method Room Air 06/13/24 16:06 Course Vital Signs Vital signs: Vital Signs Temperature 98.1 F 06/13/24 16:06 Pulse Rate 112 H 06/13/24 16:06 Respiratory Rate 20 06/13/24 16:06 Blood Pressure 116/92 H 06/13/24 16:06 Pulse Oximetry 98 06/13/24 16:06 Oxygen Delivery Method Room Air 06/13/24 16:06 Temperature 98.1 F 06/13/24 16:06 Pulse Rate 112 H 06/13/24 16:06 Respiratory Rate 20 06/13/24 16:06 Blood Pressure 116/92 H 06/13/24 16:06 Pulse Oximetry 98 06/13/24 16:06 Oxygen Delivery Method Room Air 06/13/24 16:06 Medical Decision Making MDM Narrative Medical decision making narrative: Most likely is cervical muscular strain. Will send home with Flexeril. Return to ED if worsening symptoms. Differential Diagnosis Differential Diagnosis: Sprain strain fracture Discharge Plan Discharge Chief Complaint: Neck Pain/Injury Clinical Impression: Strain of neck muscle Patient Disposition: Home, Self-Care Time of Disposition Decision: 16:17 Condition: Good Mode of Transportation: Private Vehicle Prescriptions / Home Meds: New cyclobenzaprine 10 mg tablet 10 mg PO TID Qty: 10 0RF No Action doxycycline hyclate 100 mg capsule 100 mg PO Q12H norethindrone-e.estradiol-iron [Brooke Fe 08/12 ()] 1 mg-20 mcg (21)/75 mg (7) tablet 1 tab PO DAILY ibuprofen 800 mg tablet 800 mg PO Q8H clindamycin HCl 150 mg capsule 300 mg PO Q6H 10 Days Qty: 80 0RF ketorolac 10 mg tablet 10 mg PO TID PRN (Reason: pain) Qty: 10 0RF Print Language: Mauritanian Instructions: Cervical Sprain (ED) Referrals: [facility] [Primary Care Provider] - 1 week Discharge Date/Time: 06/13/24 16:33
== END 2024-06-13 16:33 | disposition home or self-care (01) ==
PROVIDERS: Emergency Provider Emergency Medicine
DX: S16.1XXA Strain of muscle, fascia and tendon at neck level, initial encounter (principal); F17.200 Nicotine dependence, unspecified, uncomplicated; X58.XXXA Exposure to other specified factors, initial encounter
CPT/HCPCS: 99281

== ENCOUNTER 2024-07-11 08:26 | Emergency (ER) | payer OTHER, SELFPAY ==
[2024-07-11 08:30] VITALS: BP 121/72; PULSE 90; TEMP 36.6; O2SAT 100; BMI 34.5
--- OUTSIDE RECORDS SUMMARY | 2024-07-11 08:36 | XMS_ITS | CCD ---
Author Organization [facility] Care Team Providers Care Joss House Keeper Name Role Phone REQUEST, DR NONE LISTED Primary Care Unavaila juventino ALDANA, DR ZACK Do Admitting Unavailable GRECHNY, ERICKA DIAZ Consulting Unavailable JOVAN, DR ZACK Do Attending Unavailable JUANITA WHEELER Consulting Unavailable Sheryl Silva Unavailable Rumschlag DO, Shagufta K Primary Care Provider [phone] STACIA BAKER Attending Unavailable RUMSCHLAG, SHAGUFTA K Referring Unavailable RUMSCHLAG, SHAGUFTA K Primary Care Unavailable STACIA BAKER Attending Unavailable RUMSCHLAG, SHAGUFTA K Referring Unavailable RUMSCHLAG, SHAGUFTA K Primary Care Unavailable TRACEY KEITH Attending Unavailable Rumschlag DO, Shagufta Primary Care Provider RUMSCHLAG, SHAGUFTA K Primary Care Unavailable ERICA, LAUREN L Referring Unavailable RUMSCHLAG, SHAGUFTA K Referring Unavailable RUMSCHLAG, SHAGUFTA K Primary Care Unavailable RUMSCHLAG, SHAGUFTA K Referring Unavailable RUMSCHLAG, SHAGUFTA K Primary Care Unavailable RUMSCHLAG, SHAGUFTA K Primary Care Unavailable SHAHANA MURO M Referring Unavailable RUMSCHLAG, SHAGUFTA K Primary Care Unavailable SHAHANA MURO M Referring Unavailable STACIA BAKER Attending Unavailable STACIA BAKER Referring Unavailable RUMSCHLAG, SHAGUFTA K Primary Care Unavailable RUMSCHLAG, SHAGUFTA K Primary Care Unavailable ERICA, LAUREN L Referring Unavailable STACIA BAKER Referring Unavailable RUMSCHLAG, SHAGUFTA K Primary Care Unavailable RUMSCHLAG, SHAGUFTA K Primary Care Unavailable RUMSCHLAG, SHAGUFTA K Referring Unavailable RUMSCHLAG, SHAGUFTA K Primary Care Unavailable ERICA, LAUREN L Referring Unavailable RUMSCHLAG, SHAGUFTA K Primary Care Unavailable ERICA, LAUREN L Referring Unavailable ERICA, LAUREN L Admitting Unavailable LAUREN MALDONADO Attending Unavailable SHAGUFTA NELSON Primary Care Unavailable RAIN BOX Attending Unavailable [facility] Primary Care Unava ilable Allergies Allergy Classification Reported Allergen(s) Allergy Type [...] Missed miscarriage; Translations: [Missed ] 08-17-2023 Episodic Spondylosis; intervertebral disc disorders; other back problems (2 sources) Low back pain; Translations: [Low back pain, unspecified back pain laterality, unspecified chronicity, unspecified whether sciatica present] 08-01-2023 Episodic Substance-related disorders (10 sources) Nicotine [...] sources) Mood disorders Onset: 04-12-2023 04-12-2023 Other complications of (1 source) Missed ; Translations: [Missed ] Onset: 08-17-2023 Episodic Other connective tissue disease (2 sources) Other [...] OF LEFT LOWER LIMB] Onset: 2020 Episodic Spontaneous (5 sources) Miscarriage; Translations: [Complete or unspecified spontaneous without complication] Onset: 07-18-2023 08-01-2023 Episodic Substance-related disorders (9 sources) Marijuana user; Translations: [Cannabis use, unspecified, uncomplicated] Onset: 02-14-2019 02-14-2019 Episodic Unclassified (9 sources) Onset: 04-11-2022 04-11-2022 Results Test Name Value Interpretation Reference Range Facility Surgical Pathologyon 024 Surgical Pathology Normal [facility] Comment on above: Result Comment: [facility] [address] [place] [address] Surgical Pathology Consultation Patient Name:JUANJOSE GERONIMO:1990 (Age: 33)Gender:FTaken:4Reported:4Physician(s):Lauren Maldonado M.D. ([phone])Copy To: Rec. #:[id number]: #[id number] Final Pathologic Diagnosis Products of conception: Abundant blood clot admixed with fragments of hemorrhagic and focally necrotic decidual tissue and secretory endometrium. Occasional immature chorionic villi identified. The findings are consistent with retained products of conception. Report Electronically Signed Out ao/08/23/2023flory Benton MD Interpretation performed at [facility] [place] [address], License number: [id number]. Clinical History Missed AB, retained products of conception. Gross Description Received in formalin labeled JUANPABLO, uterus Karyotype: No Aggregate measurement: 6.1 x 4.8 x 1.2 cm Placenta: No Decidua/Clot: 6.1 x 4.8 x 1.2 cm Gestational Sac: No Tissue: No Molar Tissue: No Cassettes: A-E decidua/clot (5, ss, [id number],m6) DM dm/08/18/2023O Specimen(s) Received Products of conception Fee Codes(s): 1; 17379 CBC AND AUTO DIFFon 08-17-19 ABSOLUTE BASOPHIL 0.0 X10E9/L Normal 0.0-0.2 [facility] Comment on above: Performed By: #### C BCA, CMP, 18035-6 #### [facility] ([id number]) [address] [place] [address], [address] [place] [address] ABSOLUTE NEUTROPHIL 3.6 X10E9/L Normal 1.5-6.6 [facility] Comment on above: Performed By: #### C BCA, CMP, #### [facility] ([id number]) [address], [address] [place] [address] Basophils/100 WBC (Bld) 0.4 % Normal [facility] Comment on above: Performed By: #### C BCA, CMP, #### [facility] ([id number]) [address], [address] [place] [address] Eosinophils (Bld) [#/Vol] 0.1 10*3/uL Normal 0.0-0.4 [facility] Comment on above: Performed By: #### C BCA, CMP, #### [facility] ([id number]) [address], [address] [place] [address] Eosinophils/100 WBC (Bld) 1.8 % Normal [facility] Comment on above: Performed By: #### C BCA, CMP, #### [facility] ([id number]) [address], [address] [place] [address] Erythrocyte distribution width (RBC) [Ratio] 13.8 % Normal 11.5-15.0 [facility] Comment on above: Performed By: #### C ORLANDO, CMP, #### [facility] ([id number]) [address], [address] [place] [address] Hematocrit (Bld) [Volume fraction] 37.7 % Normal 35-47 [facility] Comment on above: Performed By: #### C BCA, CMP, #### [facility] ([id number]) [address], [address] [place] [address] Hemoglobin (Bld) [Mass/Vol] 12.5 g/dL Normal 11.7-15.5 [facility] Comment on above: Performed By: #### C BCA, CMP, #### [facility] ([id number]) [address] [address] [place] [address] Lymphocytes (Bld) [#/Vol] 2.3 10*3/uL Normal 1.0-3.5 [facility] Comment on above: Performed By: #### C BCA, CMP, #### [facility] ([id number]) [address], [facility] [address] [place] [address] Lymphocytes/100 WBC (Bld) 35.7 % Normal [facility] Comment on above: Performed By: #### Judi BCA, CMP, #### [facility] ([id number]) [address] [address] [place] [address] MCH (RBC) [Entitic mass] 29.9 pg Normal 27-34 [facility] Comment on above: Performed By: #### Judi BCA, CMP, #### [facility] ([id number]) [address], [address] [place] [address] MCHC (RBC) [Mass/Vol] 33.2 g/dL Normal 32-36 [facility] Comment on above: Performed By: #### Judi BCA, CMP, #### [facility] ([id number]) [address] [address] [place] [address] MCV (RBC) [Entitic vol] 90 fL Normal 80-100 [facility] Comment on above: Performed By: #### Judi BCA, CMP, #### [facility] ([id number]) [address] [address] [place] [address] Monocytes (Bld) [#/Vol] 0.4 10*3/uL Normal 0-0.9 [facility] Comment on above: Performed By: #### Judi BCA, CMP, #### [facility] ([id number]) [address] [address] [place] [address] Monocytes/100 WBC (Bld) 5.8 % Normal [facility] Comment on above: Performed By: #### C ORLANDO CMP, #### [facility] ([id number]) [address], [facility] [address] [place] [address] Neutrophils/100 WBC (Bld) 56.3 % Normal [facility] Comment on above: Performed By: #### Judi PERYR CMP, #### [facility] ([id number]) [address], [facility] [address] [place] [address] Platelet mean volume (Bld) [Entitic vol] 8.7 fL Normal 7-12 [facility] Comment on above: Performed By: #### Judi PERRY CMP, #### [facility] ([id number]) [address], [facility] [address] [place] [address] Platelets (Bld) [#/Vol] 244 10*3/uL Normal 150-450 [facility] Comment on above: Performed By: #### Judi PERRY CMP, #### [facility] ([id number]) [address], [address] [place] [address] RBC COUNT 4.18 X10E12/L Normal 3.80-5.20 [facility] Comment on above: Performed By: #### Judi PERRY CMP, #### [facility] ([id number]) [address], [facility] [address] [place] [address] WBC (Bld) [#/Vol] 6.5 10*3/uL Normal 4.0-11.0 [facility] Comment on above: Performed By: #### Judi BCA, CMP, #### [facility] ([id number]) [address], [address] [place] [address] COMPREHENSIVE METABOLIC PANE Cirilo 08-17-2023 Albumin [Mass/Vol] 4.5 g/dL Normal 3.2-5.3 [facility] Comment on above: Performed By: #### C ORLANDO CMP, #### [facility] ([id number]) [address], [address] [place] [address] ALP [Catalytic activity/Vol] 52 U/L Normal 39-130 [facility] Comment on above: Performed By: #### C ORLANDO, CMP, #### [facility] ([id number]) [address], [address] [place] [address] ALT [Catalytic activity/Vol] 22 U/L Normal 0-31 [facility] Comment on above: Performed By: #### C BCA, CMP, #### [facility] ([id number]) [address], [address] [place] [address] Anion gap [Moles/Vol] 6 mmol/L Normal 5-15 [facility] Comment on above: Performed By: #### C BCA, CMP, #### [facility] ([id number]) [address], [address] [place] [address] AST [Catalytic activity/Vol] 14 U/L Normal 0-41 [facility] Comment on above: Performed By: #### C BCA, CMP, #### [facility] ([id number]) [address], [address] [place] [address] Bilirubin [Mass/Vol] 0.4 mg/dL Normal 0.3-1.2 [facility] Comment on above: Performed By: #### C BCA, CMP, #### [facility] ([id number]) [address], [address] [place] [address] Calcium [Mass/Vol] 8.8 mg/dL Normal 8.5-10.5 [facility] Comment on above: Performed By: #### C ORLANDO [facility], #### [facility] ([id number]) [address], [address] [place] [address] Chloride [Moles/Vol] 105 mmol/L Normal 98-109 [facility] Comment on above: Performed By: #### C ORLANDO [facility], #### [facility] ([id number]) [address], [address] [place] [address] CO2 [Moles/Vol] 27 mmol/L Normal 22-32 [facility] Comment on above: Performed By: #### C AMY PERRY, #### [facility] ([id number]) [address], [address] [place] [address] Creatinine [Mass/Vol] 0.74 mg/dL Normal 0.40-1.00 [facility] Comment on above: Result Comment: METH OD TRACEABLE TO IDMS STANDARD Performed By: #### C ORLANDO [facility], #### [facility] ([id number]) [address], [address] [place] [address] eGFR (CKD-EPI) NON-RACE DEPENDENT >90 Normal >59 [facility] Comment on above: Result Comment: Reported eGFR is based on the CKD-EPI 2020 equation that does not use a race coefficient. Performed By: #### C AMY PERRY, #### [facility] ([id number]) [address], [address] [place] [address] Glucose [Mass/Vol] 86 mg/dL Normal 65-99 [facility] Comment on above: Performed By: #### C AMY PERRY, #### [facility] ([id number]) [address], [address] [place] [address] Potassium [Moles/Vol] 4.4 mmol/L Normal 3.5-5.0 [facility] Comment on above: Performed By: #### C BCA, CMP, 44069-8 #### [facility] ([id number]) [address], [address] [place] [address] Protein [Mass/Vol] 7.2 g/dL Normal 6.0-8.0 [facility] Comment on above: Performed By: #### C BCA, CMP, 19474-3 #### [facility] ([id number]) [address], [address] [place] [address] Sodium [Moles/Vol] 138 mmol/L Normal 134-146 [facility] Comment on above: Performed By: #### C BCA, CMP, 98796-3 #### [facility] ([id number]) [address], [address] [place] [address] Urea nitrogen [Mass/Vol] 13 mg/dL Normal 5-23 [facility] Comment on above: Performed By: #### C BCA, [facility], 85[address]-8 #### [facility] ([id number]) [address], [address] [place] [address] HCG.beta subunit IA 3rd IS Q non 08-17-2023 HCG.beta subunit Qn 12 m[IU]/mL Normal [facility] Comment on above: Result Comment: [...] nontrophoblastic neoplasms. Performed By: #### C BCA, [facility], [address]-4 #### [facility] ([id number]) [address] [place] [address] Type and screen(includes ind irect vero)on 08-17-2023 [...] Pablo MD on 08/14/2023 1:49 PM Normal [facility] HCG.beta subunit IA 3rd IS Q non 08-08-2023 HCG.beta subunit Qn 17 m[IU]/mL Normal [facility] Comment on above: Result Comment: [...] neoplasms. Performed By: #### 2 0415-6 #### [facility] ([id number]) [address] [place] [address], [address] [place] [address] HCG.beta subunit IA 3rd IS Q non 08-01-2023 HCG.beta subunit Qn 24 m[IU]/mL Normal [facility] Comment on above: Result Comment: [...] neoplasms. Performed By: #### 2 0415-6 #### [facility] ([id number]) [address] [place] [address], [address] [place] [address] HCG.beta subunit IA 3rd IS Q non 07-25-2023 HCG.beta subunit Qn 31 m[IU]/mL Normal [facility] Comment on above: Result Comment: [...] neoplasms. Performed By: #### 2 0415-6 #### [facility] ([id number]) [address] [place] [address], [address] [place] [address] HCG.beta subunit IA 3rd IS Q non 07-18-2023 HCG.beta subunit Qn 39 m[IU]/mL Normal [facility] Comment on above: Result Comment: [...] neoplasms. Performed By: #### 2 0415-6 #### [facility] ([id number]) [address] [place] [address], [address] [place] [address] HCG.beta subunit IA 3rd IS Q non 07-10-2023 HCG.beta subunit Qn 47 m[IU]/mL Normal [facility] Comment on above: Result Comment: [...] neoplasms. Performed By: #### 2 0415-6 #### [facility] ([id number]) [address] [facility], [address] [place] [address] COVID Quick Testingon 2020 Result Negative [facility] Other Quick Strepon 05-02-2021 S. pyogenes Org specific cx Ql (Throat) Negative [facility] Other Quick Strep [facility] Other Vital Signs Date Time Vital Sign Value Performing Clinician Facility 08-29-2023 10:36-0500 Body height 170.2 cm [employer] Work Phone: [facility] [employer] 08-29-2023 10:36-0500 Body mass index (BMI) [Ratio] 31.23 kg/m2 [employer] Work Phone: [facility] [employer] 08-29-2023 10:36-0500 Body weight 90.45 kg [employer] Work Phone: [facility] 08-29-2023 10:36-0500 Diastolic blood pressure 60 mm[Hg] [employer] Work Phone: [facility] [employer] 08-29-2023 10:36-0500 Systolic blood pressure 104 mm[Hg] Tracey Inna [employer] Work Phone: [facility] 08-01-2023 10:34-0500 Body mass index (BMI) [Ratio] 30.85 kg/m2 Stacia Baker DO Work Phone: [employer] 08-01-2023 10:34-0500 Body weight 89.36 kg Stacia Baker DO Work Phone: [employer] 08-01-2023 10:34-0500 Diastolic blood pressure 48 mm[Hg] Stacia Baker DO Work Phone: [employer] 08-01-2023 10:34-0500 Systolic blood pressure 100 mm[Hg] Stacia [employer] DO Work Phone: [employer] 05-02-2021 12:00-0400 Body height 170.18 cm Sheryl Silva Other [employer] Other 05-02-2021 12:00-0400 Body mass index (BMI) [Ratio] 32.42 kg/m2 Sheryl Silva Other [employer] Other 05-02-2021 12:00-0400 Body temperature 97.5 [degF] Sheryl Silva Other [employer] Other 05-02-2021 12:00-0400 Body weight 93.9 kg Sheryl Silva Other [employer] Other 05-02-2021 12:00-0400 SaO2% (BldA) [Mass fraction] 99 % Sheryl Silva Other [employer] Other Encounters Encounter Date Encounter Type Care Provider Facility Start: 06-18-2024 End: 06-18-2024 Emergency department patient visit [facility] Start: 08-29-2023 End: 08-29-2023 ambulatory TRACEY INNA Not Available Start: 08-29-2023 End: 08-29-2023 Office outpatient visit 15 minutes Tracey Keith DO Work Phone: [facility] Comment on above: S/P D&C (status post dilation and curettage) Start: 08-18-2023 Telephone encounter Lauren ontiveros MD Work Phone: [facility] Start: 08-18-2023 End: 08-18-2023 Evaluation and management of inpatient [facility] Start: 08-18-2023 End: 08-18-2023 Evaluation and management of inpatient [facility] Start: 08-17-2023 End: 08-17-2023 Orders Only Deven Valadez [facility] Comment on above: Missed (Anabelle emanuel Dx); Pre-op testing Start: 08-17-2023 Patient encounter status Deven Tsang gisela [facility] Start: 08-17-2023 Encounter for other preprocedural examination [facility] Start: 08-15-2023 Orders Only Stacia Baker DO Work Phone: [facility] Comment on above: SAB (spontaneous abo rtion) (Primary Dx) Start: 08-14-2023 End: 08-14-2023 ambulatory [facility] Start: 08-09-2023 Orders Only Shahana Muro APRN-CNM Work Phone: [facility] Comment on above: SAB (spontaneous abo rtion) (Primary Dx) Start: 08-08-2023 End: 08-08-2023 ambulatory [facility] Start: 08-03-2023 Orders Only Stacia Baker DO Work Phone: [facility] Comment on above: Acute bilateral low back pain without sciatica (Primary Dx) Start: 08-01-2023 End: 08-01-2023 [facility] Start: 08-01-2023 End: 08-01-2023 ambulatory [facility] Start: 08-01-2023 End: 08-01-2023 Office outpatient visit 15 minutes Stacia Baker DO Work Phone: [facility] Comment on above: SAB (spontaneous abo rtion) (Primary Dx); Low back pain, unspecified back pain laterality, unspecified chronicity, unspecified whether sciatica present Start: 07-28-2023 Telephone [facility] Start: 07-25-2023 End: 07-25-2023 ambulatory [facility] Start: 07-18-2023 End: 07-18-2023 ambulatory [facility] Start: 07-18-2023 End: 07-19-2023 ambulatory [facility] Start: 07-10-2023 End: 07-10-2023 ambulatory [facility] Start: 05-02-2021 Office outpatient vi sit 15 minutes Sheryl Silva [facility] Start: 02-22-2020 End: 02-23-[address] NONE LISTED REQUEST Facility: Procedures Date Procedure Procedure Detail Performing Clinician Start: 08-17-2023 Antibody screen Deven Valadez [facility] Start: 08-01-2023 Follow-up visit Follow-up STACIA BAKER Start: 04-12-2023 Adult depression screening assessment Deven Valadez [employer] Start: 03-02-2020 Microscopic observat ion [Identifier] in Cervix by Cyto stain Deven Valadez [facility] Start: 07-31-2019 H/O: section S/P s ection Deven Valadez [employer] H/O: surgery S/P D&C (status post dilation and curettage) Tracey Keith DO Work Phone: Plan of Treatment Date Care Activity Detail Author Start: 08-18-2024 Adult BMI Screening Adult BMI Screen ing [facility] Start: 08-18-2024 Tobacco Screening Tobacco Screening [facility] Start: 08-17-2024 Tobacco Screening Tobacco Screening [facility] Start: 08-01-2024 Adult BMI Screening Adult BMI Screen ing [facility] Start: 08-01-2024 Tobacco Screening Tobacco Screening [facility] Start: 07-04-2024 Adult BMI Screening Adult BMI Screen ing [facility] Start: 07-04-2024 Tobacco Screening Tobacco Screening [facility] Start: 04-12-2024 Depression Screening Depression Scre ening [facility] Start: 08-29-2023 End: 08-29-2024 US Pelvis transvaginal US pelvis transvaginal Imaging Routine S/P D&C (status post dilation and curettage) Expected: 08/29/2023 (Approximate), Expires: 08/29/2024 [facility] Work Phone: Comment on above: Expected: 08/29/2023 (Approximate), Expires: 08/29/2024 Start: 08-18-2023 End: 08-18-2023 Admission to same day surgery center 08/18/2023 9:00 AM EST - 08/18/2023 10:00 AM EST Surgery [facility] Surgery [address] [place] [id number] Lauren Maldonado MD [address] [facility] [place] [address] DILATION CURETTAGE SUCTION [25693 (CPT )] [facility] Comment on above: DILATION CURETTAGE S UCTION [13390 (CPT )] Start: 08-18-2023 End: 08-18-2023 Anesthesia consultation 08/18/2023 9:00 AM EST Anesthesia Event [facility] - [facility] [address] [place] [address] Rain Box MD [address] [place] [address] [facility] Start: 08-18-2023 End: 08-18-2023 Dilation & curettage dx&/ther nonobstetric DILATION CURETTAGE SUCTION missed AB, retained products of conception 08/18/2023 9:00 AM EST [facility] Start: 08-18-2023 Subsequent hospital visit by physician 08/18/2023 9:00 AM EST Hospital Encounter [facility] Surgery [address] [facility] [id number] Lauren Maldonado MD [address] [facility] [place] [address] [facility] Start: 08-17-2023 End: 08-17-2023 Telemedicine consultation with patient 08/17/2023 10:00 AM EST Telemedicine [facility] [address] [place] [address] Stacia Baker DO [address] [place], [place] [address] [facility] Start: 08-16-2023 End: 08-09-2024 hCG, quantitative, hCG, quantitative, Lab Routine SAB (spontaneous ) Expected: 08/16/2023 (Approximate), Expires: 08/09/2024 [facility] Work Phone: Comment on above: Expected: 08/16/2023 (Approximate), Expires: 08/09/2024 Start: 08-15-2023 End: 08-15-2023 Patient encounter procedure 08/15/2023 1:30 PM EST Office Visit [facility] [address] [place] [phone] Stacia Baker DO [address] [place], [place] [phone] [facility] Start: 08-01-2023 End: 08-01-2024 US Pelvis transabdominal and transvaginal Ultrasound pelvic with transvaginal Imaging Routine SAB (spontaneous ) Low back pain, unspecified back pain laterality, unspecified chronicity, unspecified whether sciatica present Expected: 08/01/2023, Expires: 08/01/2024 [email or web address] Work Phone: Comment on above: Expected: 08/01/2023 , Expires: 08/01/2024 Start: 08-01-2023 End: 08-01-2023 Patient encounter procedure 08/01/2023 10:30 AM EST Office Visit [facility] [address] [facility] [place] [address] Stacia Baker DO [address] [place], [place] [id number] [facility] Start: 04-11-2023 Adult BMI Follow Up Plan Adult BMI Follow Up Plan [facility] Start: 03-24-2023 Influenza vaccination Influenza Vacc ine [facility] Start: 03-02-2023 Screening for malign ant neoplasm of cervix Pap Smear [facility] Start: 2009 DTaP,Tdap and Td Vac cines (1 - Tdap) DTaP,Tdap and Td Vaccines (1 - Tdap) [facility] Start: 1990 Tobacco Counseling Tobacco Counselin g [facility] End: 08-15-2024 CBC W Auto Differential panel - Blood CBC auto differential Lab Routine SAB (spontaneous ) 1 Occurrences starting 08/15/2023 until 08/15/2024 [facility] Work Phone: Comment on above: 1 Occurrences starti ng 08/15/2023 until 08/15/2024 End: 08-15-2024 hCG, quantitative, hCG, quantitative, Lab Routine SAB (spontaneous ) 1 Occurrences starting 08/15/2023 until 08/15/2024 [facility] Comment on above: 1 Occurrences starti ng 08/15/2023 until 08/15/2024 Immunizations Immunization Date Immunization Notes Care Provider Juan Ramon pope NEGATED: Highlighted row has not occurred!07-30-2019 measles, mumps and rubella virus vaccine Deven Valadez [facility] Comment on above: Deferred: - IMMUNE Deferred: Other - IM MUNE NEGATED: Highlighted row has not occurred!07-30-2019 tetanus toxoid, reduced diphtheria toxoid, and acellular pertussis vaccine, adsorbed Deven Valadez [facility] Payers Date Payer Category Payer Private Health Insurance [facility] [id number] 2022-Present [phone] [address] [place] [address] [id number] 2022 Medicaid [employer] [place] [id number] 2022-Present [address] [place] [address] [id number] 2022 Private Health Insurance [id number] 1990 Unknown [id number] 2.16.840.1.443444.3.579. 2.593 1990 Unknown [id number] 2.16.840.1.627474.3.579. 2.1286 1990 Unknown [id number] 2.16.840.1.937262.3.579. 2.1286 1990 Unknown [id number] 2.16.840.1.674841.3.579. 2.1259 1990 Unknown [id number] 2.16.840.1.008245.3.579. 2.1286 1990 Unknown [id number] 2.16.840.1.800959.3.579. 2.1286 1990 Unknown [id number] 2.16.840.1.110657.3.579. 2.1286 1990 Unknown [id number] 2.16.840.1.816200.3.579. 2.1286 1990 Unknown [id number] 2.16.840.1.436261.3.579. 2.128 1990 Unknown [id number] 2.16.840.1.564331.3.579. 2.6 1990 Unknown [id number] 2.16.840.1.543559.3.579. 2.1285 1990 Unknown [id number] 2.16.840.1.923049.3.579. 2.1285 1990 Unknown [id number] 2.16.840.1.356629.3.579. 2.1285 1990 Unknown [id number] 2.16.840.1.111478.3.579. 2.1285 1990 Unknown [id number] 2.16.840.1.508748.3.579. 2.1285 1990 Unknown [id number] 2.16.840.1.340766.3.579. 2.1285 1990 Unknown [id number] 2.16.840.1.169321.3.579. 2.1285 1990 Unknown [id number] 2.16.840.1.633589.3.579. 2.6 1959 Private Health Insurance [id number] Social History Date Type Detail Facility Start: 03-12-2023 End: 07-04-2023 Sex Assigned At [facility] Start: 04-23-2012 End: 03-12-2023 Tobacco smoking status NHIS Smokes tobacco daily [facility] Start: 04-23-2012 End: 06-23-2023 History of tobacco use Cigarette Smoker [facility] Start: 03-30-2021 End: 03-12-2023 Cigarettes smoked current (pack per day) - Reported 0.5 [facility] Start: 03-30-2021 End: 08-01-2023 Tobacco use and exposure Smokeless tobacco non-user [facility] Start: 07-04-2023 End: 08-18-2023 Alcohol intake Ex-drinker (finding) [facility] Adolescent depressio n screening assessment 5 [facility] The thought of harmi ng myself has occurred to me Never [facility] Start: 1990 Sex Assigned At Female [facility] Start: 07-26-2021 Gender identity Identifies as female gender (finding) [facility] Start: 07-26-2021 Sexual orientation Heterosexual (finding) [facility] Start: 08-01-2023 Tobacco smoking status NHIS Ex-smoker [facility] End: 06-23-2023 History of tobacco use Current smoker [facility] Start: 08-29-2023 Alcohol intake Current drinker of alcohol (finding) [facility] Start: 03-12-2023 Alcohol Comment 1-2 drinks less than monthly in the past year, Caffeine intake: 2-3 cups per day coffee [facility] Start: 1990 Sex Assigned At Not on file [facility] Clinical Notes 05-02-2021 to 08-29-2023 Tracey Keith [...] nursing note reviewed. Exam conducted with a information services consultant present. Vitals: Estimated body mass index is [...] Tracey Keith DO documented in this encounter [facility] 08-18-2023 Miscellaneous Notes Formattin g of this note might be different from the original. Adri at [facility] states they do not have the generic methergine prescribed for Pt. Adri states she called 2 other Pharmacies in [facility] & they do not have it either. Please send alternate medication RX to [facility]. Advised Adri at [facility] Pt would be called when new RX is sent. IS NONE DISREGARD AT THIS POINT THANK YOU Pt left VM on 08/18 at 4:22pm, but phones were not forwarded yet. Have tried calling Pt 3 times this morning, but no answer and no VM set up. Pt called in stating that she still was unable to hot die picker medication from Pharmacy and wanted to [...] to this information. documented in this encounter [facility] 08-18-2023 Telephone access hospital daytont er Note Adri at [facility] states they do not have the generic methergine prescribed for Pt. Adri states she called 2 other Pharmacies in [facility] & they do not have it either. Please send alternate medication RX to [facility]. Advised Adri at [facility] Pt would be called when new RX is sent. [facility] 08-18-2023 Telephone access hospital daytont er Note IS NONE DISREGARD AT THIS POINT THANK YOU [facility] 08-18-2023 Telephone encount er Note Pt left VM on 08/18 at 4:22pm, but phones were not forwarded yet. Have tried calling Pt 3 times this morning, but no answer and no VM set up. [facility] 08-18-2023 Telephone encount er Note Pt called in stating that she still was unable to hot die picker medication from Pharmacy and wanted to [...] was [facility]able [facility] this information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 Dr. Maldonado would like a CBC & Type & Screen ordered for the patient and the patient to be NPO after midnight. Surgery scheduled with [facility] in surgery scheduling for 08/18/23 at 9:00am [...] & screen drawn. documented in this encounter [facility] 08-17-2023 Telephone encount er Note Per Dr. Baker patient needs to be schedule for surgery with her or Dr. Maldonado for a missed ab & retained products of conception. Sugar talked to Dr. Maldonado & Dr. 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 Dr. Maldonado would like a CBC & [...] to have the type & screen drawn. [facility] 08-17-2023 History of Presen t illness Narrative Ordered Type and Screen per Dr Maldonado documented in this encounter [facility] 08-17-2023 Miscellaneous Notes Addended by: DEVEN VALADEZ on: 08/17/2023 01:20 PM Modules accepted: Orders documented in this encounter [facility] 08-17-2023 Note Addended by: DEVEN VALADEZ on: 08/17/2023 01:20 PM Modules accepted: Orders [facility] 08-15-2023 History of Presen t illness Narrative HCG and CBC ordered documented in this encounter [facility] 08-09-2023 History of Presen t illness Narrative Order placed for hCG as we're trending after SAB. Pt. Notified via [employer] and has been seen in the office in the last week by Dr. Baker. R[facility] 08/09/23 0846 documented in this encounter [facility] 08-03-2023 History of Presen t illness Narrative Prescription for Motrin placed documented in this encounter [facility] 08-03-2023 Miscellaneous Notes Formattin g of this note might be different from the original. Pt states she was told at her appointment on that a RX for Motrin would be sent to [facility]. Pt went to [facility] today & there wasn't a RX for her to hot die picker. Please advise. Thank you Unable to reach Pt. Advised Pt RX was sent. documented in this encounter [facility] 08-03-2023 Telephone encount er Note Pt states she was told at her appointment on that a RX for Motrin would be sent to [facility]. Pt went to [facility] today & there wasn't a RX for her to hot die picker. Please advise. Thank you [facility] 08-03-2023 Telephone encount er Note Unable to reach Pt. [facility] 08-03-2023 Telephone encount er Note Advised Pt RX was sent. [facility] 08-01-2023 History of Presen t illness Narrative Subjective Patient ID: Juanjose Geronimo is a pleasant 33 y.o. female who presents today for follow-up of spontaneous . Patient had an SAB in early June. She was seen and treated initially at [facility] emergency room, and has been following here [...] some tissue still in her uterus at [facility]. This was 1 month ago. She has [...] products of conception. documented in this encounter [facility] 07-28-2023 Miscellaneous Notes Formattin g of this note might be different from the original. Called and left vm for pt to call office back regarding her HCG that was done 07/25/23. Pt will need to have more drawn until they are less than 5 documented in this encounter [facility] 07-28-2023 Telephone encount er Note Called and left vm for pt to call office back regarding her HCG that was done 07/25/23. Pt will need to have more drawn until they are less than 5 [facility] 05-02-2021 Evaluation note Encounter Date Diagnosis [...] Apr, Sore throat (ICD-10 - J02.9) Apr, 2021 Other Additional time spent conducting pre-visit phone call, screening for symptoms, instructions on social distancing, application and removal of PPE, and cleaning of examination room, equipment and supplies was preformed. Patient education given for testing methodology and results. Patient care instructions given in writting by [facility] At Home document. [facility] Other Evaluation note* Diagnosis SAB (spontaneous )- Primary Unspecified spontaneous without mention of complication Low back pain, unspecified back pain laterality, unspecified chronicity, unspecified whether sciatica present [facility] Diagnosis Acute bilateral low back pain without sciatica- Primary documented in this encounter [facility]* Diagnosis SAB (spontaneous )- Primary Unspecified spontaneous without mention of complication documented in this encounter [facility] [facility]* Diagnosis SAB (spontaneous )- Primary Unspecified spontaneous without mention of complication documented in this encounter [facility] [facility]* Diagnosis Missed - Primary Pre-op testing Unspecified pre-operative examination documented in this encounter [facility] [facility] note* Diagnosis S/P D&C (status post dilation and curettage) Other postprocedural status [facility] - Reported* Type Description Date Surgical History tonsillectomy and adenoidectomy Surgical History C section Surgical History cholecystectomy [facility] Other InstructionsNot on filedocumented in this encounter [facility] in [facility] filedocumented in this [facility] on filedocumented in this encounter [facility] on filedocumented in this encounter [facility] System[facility] on filedocumented in this encounter [facility] [employer] [facility] Summary Purpose Family History No Family [...] and content) DATE CREATED AUTHOR 10/05/2021 [facility] DATE CREATED AUTHOR AUTHOR'S ORGANIZ ATION 08/20/2023 [facility] DATE CREATED AUTHOR AUTHOR'S ORGANIZ ATION 08/30/2023 [facility] EPIC DATE CREATED AUTHOR AUTHOR'S ORGANIZ ATION 06/21/2024 [facility] REASON FOR VISIT (unrecogniz ed section and content) Reason Comments Follow-up SAB Reason Comments ER Follow-up Care Teams (unrecognized sec tion and content) Joss House Keeper Relationship Specialty Start Date End Date Shagufta Nelson DO [address] [place] [address] PCP - General Family Medicine 11/01/22 Joss House Keeper Relationship Specialty Start Date End Date Shagufta Nelson DO [address] [place] [address] PCP - General Family Medicine 11/01/22 Joss House Keeper Relationship Specialty Start Date End Date Shagufta Nelson DO [address] [place] [address] PCP - General Family Medicine 11/01/22 Joss House Keeper Relationship Specialty Start Date End Date Shagufta Nelson DO [address] [place] [address] PCP - General Family Medicine 11/01/22 Joss House Keeper Relationship Specialty Start Date End Date Shagufta Nelson DO [address] [place] [address] PCP - General Family Medicine 11/01/22 Joss House Keeper Relationship Specialty Start Date End Date Shagufta Nelson DO [address] [place] [address] PCP - General Family Medicine 08/29/23 FOR [...] BE BASED ON THE PRIMARY CLINICAL RECORDS. [facility]. provides no warranty or guarantee of the accuracy or completeness of information in this document.
[2024-07-11 08:38] VITALS: O2SAT 100
--- NOTE | 2024-07-11 08:47 | ED_ITS ---
HPI - URI/Sore Throat General Chief Complaint: Upper Respiratory Infection Stated Complaint: URTI COMPLAINTS Time Seen by Provider: 07/11/24 08:33 Source: patient History of Present Illness HPI Narrative: The patient coming back to the ER with more than 1 week history of upper respiratory tract infection symptoms of nasal congestion with a change in the color of the nasal drainage from white to greenish over the last few days, the patient also have bilateral ear congestion and fullness and she also have a cough and change in voice over the last few days The patient have a sore throat that is mild She did not have any shortness of breath right now but she mentioned that after taking a shower yesterday she had some shortness of breath as well No nausea no vomiting no diarrhea Related Data Home Medications ?Medication ?Instructions ?Recorded ?Confirmed norethindrone 1 mg-ethinyl 1 tab PO DAILY 12/21/23 07/11/24 estradiol 20 mcg (21)-iron 75 mg (7) tablet (Brooke Fe 08/12 (28)) Previous Rx's ?Medication ?Instructions ?Recorded doxycycline hyclate 100 mg capsule 100 mg PO BID 7 days #14 caps 07/11/24 fluticasone furoate 27.5 2 spray intranasal BID PRN nasal 07/11/24 mcg/actuation nasal congestion #6.6 mL spray,suspension (Flonase Sensimist) guaifenesin 600 mg tablet, 600 mg PO BID PRN congestion #10 07/11/24 extended release 12 hr (Mucinex) tabs Allergies Allergy/AdvReac Type Severity Reaction Status Date / Time amoxicillin AdvReac Mild Rash Verified 06/13/24 16:11 Review of Systems ROS Status of ROS 10 or more systems reviewed and unremark able except as noted in history and below [facility] Social History Smoking status: Current every day smoker Little interest or pleasure in doing things: not at all Feeling down, depressed, or hopeless: not at all Exam Narrative Exam Narrative: Nurses notes and vital signs reviewed and patient is not hypoxic. General: Well-appearing and in no apparent distress. Skin: Warm, dry, no pallor noted. No rash. Head: Normocephalic, atraumatic. Neck: Supple, non-tender. Eye: Pupils are equal, round and EOMI. No scleral icterus. Ears, Nose, Mouth, and Throat: Bilateral tympanic membrane evaluation both ears shows serous fluid behind them, the nasal mucosa is congested and the turbinates are enlarged and the very significant irritation with mild tenderness, oral mucosa is moist, no posterior oropharynx erythema, uvula is mid-line Cardiovascular: Regular Rate and Rhythm without murmur, gallop or rub. Respiratory: No accessory muscle use or respiratory distress. Lungs are clear to auscultation, no wheezing, rales or rhonchi Chest Wall: no tenderness Back: No midline thoracic or lumbar vertebral tenderness. No CVA tenderness Musculoskeletal: normal ROM, no calf or popliteal tenderness, no lower extremity edema/swelling GI: Abdomen is soft, non-distended. Normal bowel sounds. No masses appreciated. No tenderness to palpation. No rebound, guarding, or rigidity noted. Neurological: A&O x4. No cranial nerve dysfunction observed. No truncal ataxia. Moves all extremities. Sensation intact. Psychiatric: Cooperative and interactive. Normal mood and affect. Constitutional Vital Signs, click to edit/add: Last Vital Signs Temp 97.8 F 07/11/24 08:30 Pulse 90 07/11/24 08:30 Resp 18 07/11/24 08:30 BP 121/72 07/11/24 08:30 Pulse Ox 100 07/11/24 08:38 O2 Del Method Room Air 07/11/24 08:38 Course Vital Signs Vital signs: Vital Signs Temperature 97.8 F 07/11/24 08:30 Pulse Rate 90 07/11/24 08:30 Respiratory Rate 18 07/11/24 08:30 Blood Pressure 121/72 07/11/24 08:30 Pulse Oximetry 100 07/11/24 08:30 Oxygen Delivery Method Room Air 07/11/24 08:30 Temperature 97.8 F 07/11/24 08:30 Pulse Rate 90 07/11/24 08:30 Respiratory Rate 18 07/11/24 08:30 Blood Pressure 121/72 07/11/24 08:30 Pulse Oximetry 100 07/11/24 08:38 Oxygen Delivery Method Room Air 07/11/24 08:38 MDM - URI/Sore Throat MDM Narrative Medical decision making narrative: The patient is coming to us with a sinusitis symptoms that been resistant to more than 7 days of [id number] treatment in addition to prednisone as well, the patient also have bilateral ear infection symptoms of possible otitis media And she also have laryngitis like symptoms right now I did explain to the frank childers that since her symptoms has been going on for more than 7 days not responding to [id number] medication she definitely need to be treated with antibiotic to make sure we cover the sinusitis and otitis media as well Patient have allergy to penicillin should be treated with doxycycline Patient instructed to monitor his symptoms for the next 2 days in case of any fever or no improvement she is to come back to the ER The patient is to follow up with primary care physician in next 2-3 days or to return to the emergency department should any of the signs or symptoms worsen or new symptoms develop. The patient agrees with the following Diagnosis and Treatment plan and the patient will be discharged home. Discharge Plan Discharge Chief Complaint: Upper Respiratory Infection Clinical Impression: Otitis media, Sinusitis, Laryngitis Patient Disposition: Home, Self-Care Time of Disposition Decision: 08:43 Condition: Good Prescriptions / Home Meds: New guaifenesin [Mucinex] 600 mg tablet extended release 12hr 600 mg PO BID PRN (Reason: congestion) Qty: 10 0RF Flonase Sensimist 27.5 mcg/actuation spray,suspension 2 spray intranasal BID PRN (Reason: nasal congestion) Qty: 6.6 0RF Rx Instructions: into each nostril doxycycline hyclate 100 mg capsule 100 mg PO BID 7 Days Qty: 14 0RF No Action norethindrone-e.estradiol-iron [Brooke Fe 08/12 (28)] 1 mg-20 mcg (21)/75 mg (7) tablet 1 tab PO DAILY Print Language: Czech Instructions: Laryngitis (ED), Ear Infection (ED) Referrals: [facility] [Primary Care Provider] - 1 week
== END 2024-07-11 09:02 | disposition home or self-care (01) ==
PROVIDERS: Emergency Provider Emergency Medicine
DX: J32.9 Chronic sinusitis, unspecified (principal); J04.0 Acute laryngitis; F17.200 Nicotine dependence, unspecified, uncomplicated; H66.93 Otitis media, unspecified, bilateral
CPT/HCPCS: 99283

== ENCOUNTER 2024-08-31 17:26 | Emergency (ER) | payer OTHER, SELFPAY ==
[2024-08-31 17:37] VITALS: BP 120/77; PULSE 78; TEMP 36.7; O2SAT 99; BMI 32.9
--- NOTE | 2024-08-31 17:57 | ED.URI1 ---
HPI - URI/Sore Throat General Chief Complaint: Upper Respiratory Infection Stated Complaint: URTI COMPLAINTS Time Seen by Provider: 08/31/24 17:28 Source: patient History of Present Illness HPI Narrative: Patient is a 34-year-old female who presents to the emergency department for the evaluation of flulike illness that began this morning. She is also being evaluated with her significant other and her son, they all have the same symptoms of flulike illness. They were exposed to influenza A with a family member. Patient reports cough, vomiting, body aches. She is currently menstruating with no concern for . She took Tylenol several hours ago. She is sitting comfortably at time of initial interview. Related Data Home Medications ?Medication ?Instructions ?Recorded ?Confirmed norethindrone 1 mg-ethinyl 1 tab PO DAILY 12/21/23 08/31/24 estradiol 20 mcg (21)-iron 75 mg (7) tablet (Brooke Fe 08/12 ()) Previous Rx's ?Medication ?Instructions ?Recorded qilyaxafbvnczuv-ynqtkbmrkiuxwlf-FO 10 ml PO Q6H PRN cold symptoms 08/31/24 2 mg-30 mg-10 mg/5 mL oral syrup #200 mL (Bromfed DM) ondansetron 4 mg disintegrating 4 mg PO Q6H PRN nausea and 08/31/24 tablet vomiting #12 tabs Allergies Allergy/AdvReac Type Severity Reaction Status Date / Time amoxicillin AdvReac Mild Rash Verified 06/13/24 16:11 Review of Systems ROS Constitutional Reports: fever and chills Ears, nose, mouth, and throat Reports: nasal congestion; Denies: throat pain Cardiovascular Denies: chest pain Respiratory Reports: cough; Denies: shortness of breath Gastrointestinal Reports: nausea and vomiting; Denies: diarrhea Integumentary/Breast Denies: rash Neurological Reports: headache; Denies: numbness in extremities or weakness in extremities Hematologic/Lymphatic Denies: easy bruising or easy bleeding PFSH PFSH Social History Smoking status: Current every day smoker Little interest or pleasure in doing things: not at all Feeling down, depressed, or hopeless: not at all Exam Narrative Exam Narrative: Gen.: Awake, alert, in no distress Head: Normocephalic, atraumatic ENT: Moist mucous membranes, bilateral TMs are clear, no pharyngeal erythema Respiratory: No respiratory distress, lungs clear bilaterally, clear speech, no coughing noted, no wheezing or rhonchi Cardio: Regular rate and rhythm Extremities: Moves extremities equally Psych: Normal mood and affect Neuro: No focal neuro deficit Skin: Warm, dry, intact Constitutional Vital Signs, click to edit/add: Last Vital Signs Temp 98.1 F 08/31/24 17:37 Pulse 78 08/31/24 17:37 Resp 18 08/31/24 17:37 BP 120/77 08/31/24 17:37 Pulse Ox 99 08/31/24 17:37 O2 Del Method Room Air 08/31/24 17:37 Course Vital Signs Vital signs: Vital Signs Temperature 98.1 F 08/31/24 17:37 Pulse Rate 78 08/31/24 17:37 Respiratory Rate 18 08/31/24 17:37 Blood Pressure 120/77 08/31/24 17:37 Pulse Oximetry 99 08/31/24 17:37 Oxygen Delivery Method Room Air 08/31/24 17:37 Temperature 98.1 F 08/31/24 17:37 Pulse Rate 78 08/31/24 17:37 Respiratory Rate 18 08/31/24 17:37 Blood Pressure 120/77 08/31/24 17:37 Pulse Oximetry 99 08/31/24 17:37 Oxygen Delivery Method Room Air 08/31/24 17:37 MDM - URI/Sore Throat MDM Narrative Medical decision making narrative: Unable to test for influenza due to limited resources. Patient was exposed, multiple family member sick with the same. She was informed that she likely has influenza A, Decadron given in the ER with Bromfed-DM and Zofran for home. Follow-up with PCP and return to the ER if symptoms change or worsen. Vital signs stable at discharge. SUPERVISED APC VISIT, PHYSICIAN ATTESTATION: Based on the medical record the care appears appropriate. ? Medical Records Attestation: I reviewed the patient's medical records. Discharge Plan Discharge Chief Complaint: Upper Respiratory Infection Clinical Impression: Upper respiratory infection, Exposure to the flu Patient Disposition: Home, Self-Care Time of Disposition Decision: 17:54 Condition: Good Prescriptions / Home Meds: New bwstnknrqqwceck-piqirqjrq-FE [Bromfed DM] 2-30-10 mg/5 mL syrup 10 ml PO Q6H PRN (Reason: cold symptoms) Qty: 200 0RF ondansetron 4 mg tablet,disintegrating 4 mg PO Q6H PRN (Reason: nausea and vomiting) Qty: 12 0RF No Action norethindrone-e.estradiol-iron [Brooke Fe 08/12 (28)] 1 mg-20 mcg (21)/75 mg (7) tablet 1 tab PO DAILY Print Language: Uzbek Instructions: Influenza (ED), Upper Respiratory Infection (ED) Referrals: [facility] [Primary Care Provider] - 1 week
[2024-08-31] MEDS: DEXAMETHASONE SOD PHOS 10 MG/ML VIAL PO (18:11)
--- OUTSIDE RECORDS SUMMARY | 2024-08-31 18:55 | XMS_ITS | CCD ---
Author Organization [facility] Care Team Providers Care Data Operations Manager Name Role Phone REQUEST, DR NONE LISTED Primary Care Unavaila juventino ALDANA, DR ZACK Do Admitting Unavailable GRECHNY, ERICKA DIAZ Consulting Unavailable JOVAN, DR ZACK Do Attending Unavailable JUANITA WHEELER Consulting Unavailable Sheryl Silva Unavailable Rumschlag DO, Shagufta K Primary Care Provider [phone] STACIA BAKER Attending Unavailable RUMSCHLAG, SHAGUFTA K [...] Primary Care Unavailable RAIN BOX Attending Unavailable [facility] Primary Care Unava ilable Allergies Allergy [...] Pathologyon 024 Surgical Pathology Normal [facility] Comment on above: Result Comment: [facility] [address] [place] [address] Surgical Pathology Consultation Patient Name:JUANJOSE GERONIMO:1990 (Age: 33)Gender:FTaken:4Reported:4Physician(s):Lauren Maldonado M.D. ([phone])Copy To: Rec. #:[id number]: #[id number] Final Pathologic Diagnosis Products of conception: Abundant blood clot admixed with fragments of hemorrhagic and focally necrotic decidual tissue and secretory endometrium. Occasional immature chorionic villi identified. The findings are consistent with retained products of conception. Report Electronically Signed Out ao/08/23/2023flory Benton MD Interpretation performed at [facility] [place] [address], License number: [id number]. Clinical History Missed AB, retained products of conception. Gross Description Received in formalin labeled JUANPABLO, uterus Karyotype: No Aggregate measurement: 6.1 x 4.8 x 1.2 cm Placenta: No Decidua/Clot: 6.1 x 4.8 x 1.2 cm Gestational Sac: No Tissue: No Molar Tissue: No Cassettes: A-E decidua/clot (5, ss, [id number],m6) DM dm/08/18/2023O Specimen(s) Received Products of conception Fee Codes(s): 1; 79313 CBC AND AUTO DIFFon 08-17-19 ABSOLUTE BASOPHIL 0.0 X10E9/L Normal 0.0-0.2 [facility] Comment on above: Performed By: #### C BCA, CMP, 75382-2 #### [facility] ([id number]) [address] [place] [address], [address] [place] [address] ABSOLUTE NEUTROPHIL 3.6 X10E9/L Normal 1.5-6.6 [facility] Comment on above: Performed By: #### C BCA, CMP, #### [facility] ([id number]) [address], [address] [place] [address] Basophils/100 WBC (Bld) 0.4 % Normal [facility] Comment on above: Performed By: #### C BCA, CMP, #### [facility] ([id number]) [address], [address] [place] [address] Eosinophils (Bld) [#/Vol] 0.1 10*3/uL Normal 0.0-0.4 [facility] Comment on above: Performed By: #### C BCA, CMP, #### [facility] ([id number]) [address], [address] [place] [address] Eosinophils/100 WBC (Bld) 1.8 % Normal [facility] Comment on above: Performed By: #### C BCA, CMP, #### [facility] ([id number]) [address], [address] [place] [address] Erythrocyte distribution width (RBC) [Ratio] 13.8 % Normal 11.5-15.0 [facility] Comment on above: Performed By: #### C ORLANDO, CMP, #### [facility] ([id number]) [address], [address] [place] [address] Hematocrit (Bld) [Volume fraction] 37.7 % Normal 35-47 [facility] Comment on above: Performed By: #### C BCA, CMP, #### [facility] ([id number]) [address], [address] [place] [address] Hemoglobin (Bld) [Mass/Vol] 12.5 g/dL Normal 11.7-15.5 [facility] Comment on above: Performed By: #### C BCA, CMP, #### [facility] ([id number]) [address] [address] [place] [address] Lymphocytes (Bld) [#/Vol] 2.3 10*3/uL Normal 1.0-3.5 [facility] Comment on above: Performed By: #### C BCA, CMP, #### [facility] ([id number]) [address], [facility] [address] [place] [address] Lymphocytes/100 WBC (Bld) 35.7 % Normal [facility] Comment on above: Performed By: #### Judi BCA, CMP, #### [facility] ([id number]) [address] [place] [address] MCH (RBC) [Entitic mass] 29.9 pg Normal 27-34 [facility] Comment on above: Performed By: #### Judi BCA, CMP, #### [facility] ([id number]) [address], [address] [place] [address] MCHC (RBC) [Mass/Vol] 33.2 g/dL Normal 32-36 [facility] Comment on above: Performed By: #### Judi BCA, CMP, #### [facility] ([id number]) [address] [address] [place] [address] MCV (RBC) [Entitic vol] 90 fL Normal 80-100 [facility] Comment on above: Performed By: #### Judi BCA, CMP, #### [facility] ([id number]) [address] [address] [place] [address] Monocytes (Bld) [#/Vol] 0.4 10*3/uL Normal 0-0.9 [facility] Comment on above: Performed By: #### Judi BCA, CMP, #### [facility] ([id number]) [address] [address] [place] [address] Monocytes/100 WBC (Bld) 5.8 % Normal [facility] Comment on above: Performed By: #### C ORLANDO CMP, #### [facility] ([id number]) [address], [facility] [address] [place] [address] Neutrophils/100 WBC (Bld) 56.3 % Normal [facility] Comment on above: Performed By: #### Judi PERRY CMP, #### [facility] ([id number]) [address], [facility] [address] [place] [address] Platelet mean volume (Bld) [Entitic vol] 8.7 fL Normal 7-12 [facility] Comment on above: Performed By: #### Judi PERRY CMP, #### [facility] ([id number]) [address], [facility] [address] [place] [address] Platelets (Bld) [#/Vol] 244 10*3/uL Normal 150-450 [facility] Comment on above: Performed By: #### Judi PERRY CMP, #### [facility] ([id number]) [address], [address] [place] [address] RBC COUNT 4.18 X10E12/L Normal 3.80-5.20 [facility] Comment on above: Performed By: #### Judi PERRY CMP, #### [facility] ([id number]) [address], [facility] [address] [place] [address] WBC (Bld) [#/Vol] 6.5 10*3/uL Normal 4.0-11.0 [facility] Comment on above: Performed By: #### Judi BCA, CMP, #### [facility] ([id number]) [address], [address] [place] [address] COMPREHENSIVE METABOLIC PANE Cirilo 08-17-2023 Albumin [Mass/Vol] 4.5 g/dL Normal 3.2-5.3 [facility] Comment on above: Performed By: #### C ORLANDO CMP, #### [facility] ([id number]) [address], [address] [place] [address] ALP [Catalytic activity/Vol] 52 U/L Normal 39-130 [facility] Comment on above: Performed By: #### C ORLANDO, CMP, #### [facility] ([id number]) [address], [address] [place] [address] ALT [Catalytic activity/Vol] 22 U/L Normal 0-31 [facility] Comment on above: Performed By: #### C BCA, CMP, #### [facility] ([id number]) [address], [address] [place] [address] Anion gap [Moles/Vol] 6 mmol/L Normal 5-15 [facility] Comment on above: Performed By: #### C BCA, CMP, #### [facility] ([id number]) [address], [address] [place] [address] AST [Catalytic activity/Vol] 14 U/L Normal 0-41 [facility] Comment on above: Performed By: #### C BCA, CMP, #### [facility] ([id number]) [address], [address] [place] [address] Bilirubin [Mass/Vol] 0.4 mg/dL Normal 0.3-1.2 [facility] Comment on above: Performed By: #### C BCA, CMP, #### [facility] ([id number]) [address], [address] [place] [address] Calcium [Mass/Vol] 8.8 mg/dL Normal 8.5-10.5 [facility] Comment on above: Performed By: #### C ORLANDO [facility], #### [facility] ([id number]) [address], [address] [place] [address] Chloride [Moles/Vol] 105 mmol/L Normal 98-109 [facility] Comment on above: Performed By: #### C ORLANDO [facility], #### [facility] ([id number]) [address], [address] [place] [address] CO2 [Moles/Vol] 27 mmol/L Normal 22-32 [facility] Comment on above: Performed By: #### C AMY PERRY, #### [facility] ([id number]) [address], [address] [place] [address] Creatinine [Mass/Vol] 0.74 mg/dL Normal 0.40-1.00 [facility] Comment on above: Result Comment: METH OD TRACEABLE TO IDMS STANDARD Performed By: #### C ORLANDO [facility], #### [facility] ([id number]) [address], [address] [place] [address] eGFR (CKD-EPI) NON-RACE DEPENDENT >90 Normal >59 [facility] Comment on above: Result Comment: Reported eGFR is based on the CKD-EPI 2020 equation that does not use a race coefficient. Performed By: #### C AMY PERRY, #### [facility] ([id number]) [address], [address] [place] [address] Glucose [Mass/Vol] 86 mg/dL Normal 65-99 [facility] Comment on above: Performed By: #### C AMY PERRY, #### [facility] ([id number]) [address], [address] [place] [address] Potassium [Moles/Vol] 4.4 mmol/L Normal 3.5-5.0 [facility] Comment on above: Performed By: #### C BCA, CMP, 43260-1 #### [facility] ([id number]) [address], [address] [place] [address] Protein [Mass/Vol] 7.2 g/dL Normal 6.0-8.0 [facility] Comment on above: Performed By: #### C BCA, CMP, 49341-0 #### [facility] ([id number]) [address], [address] [place] [address] Sodium [Moles/Vol] 138 mmol/L Normal 134-146 [facility] Comment on above: Performed By: #### C BCA, CMP, 24094-2 #### [facility] ([id number]) [address], [address] [place] [address] Urea nitrogen [Mass/Vol] 13 mg/dL Normal 5-23 [facility] Comment on above: Performed By: #### C BCA, [facility], [address]18[address]-3 #### [facility] ([id number]) [address], [address] [place] [address] HCG.beta subunit IA 3rd IS Q non 08-17-2023 HCG.beta subunit Qn 12 m[IU]/mL Normal [facility] Comment on above: Result Comment: NEW [...] #### C BCA, [facility], [address]-7 #### [facility] ([id number]) [address] [place] [address] Type and screen(includes ind irect vero)on 08-17-2023 [...] Pablo MD on 08/14/2023 1:49 PM Normal [facility] HCG.beta subunit IA 3rd IS Q non 08-08-2023 HCG.beta subunit Qn 17 m[IU]/mL Normal [facility] Comment on above: Result Comment: NEW [...] neoplasms. Performed By: #### 2 0415-6 #### [facility] ([id number]) [address] [place] [address], [address] [place] [address] HCG.beta subunit IA 3rd IS Q non 08-01-2023 HCG.beta subunit Qn 24 m[IU]/mL Normal [facility] Comment on above: Result Comment: NEW [...] neoplasms. Performed By: #### 2 0415-6 #### [facility] ([id number]) [address] [place] [address], [address] [place] [address] HCG.beta subunit IA 3rd IS Q non 07-25-2023 HCG.beta subunit Qn 31 m[IU]/mL Normal [facility] Comment on above: Result Comment: NEW [...] neoplasms. Performed By: #### 2 0415-6 #### [facility] ([id number]) [address] [place] [address], [address] [place] [id number] HCG.beta subunit IA 3rd IS Q non 07-18-2023 HCG.beta subunit Qn 39 m[IU]/mL Normal [facility] Comment on above: Result Comment: NEW [...] neoplasms. Performed By: #### 2 0415-6 #### [facility] ([id number]) [address] [place] [address], [address] [place] [address] HCG.beta subunit IA 3rd IS Q non 07-10-2023 HCG.beta subunit Qn 47 m[IU]/mL Normal [facility] Comment on above: Result Comment: NEW [...] neoplasms. Performed By: #### 2 0415-6 #### [facility] ([id number]) [address] [facility], [address] [place] [address] COVID Quick Testingon 2020 Result Negative [employer] Other Quick Strepon 05-02-2021 S. pyogenes Org specific cx Ql (Throat) Negative [employer] Other Quick Strep [employer] Other Vital Signs Date Time Vital Sign Value Performing Clinician Facility 08-29-2023 10:36-0500 Body height 170.2 cm [employer] Work Phone: [facility] [employer] 08-29-2023 10:36-0500 Body mass index (BMI) [Ratio] 31.23 kg/m2 [employer] Work Phone: [facility] [employer] 08-29-2023 10:36-0500 Body weight 90.45 kg [employer] Work Phone: [facility] 08-29-2023 10:36-0500 Diastolic blood pressure 60 mm[Hg] [employer] Work Phone: [facility] [employer] 08-29-2023 10:36-0500 Systolic blood pressure 104 mm[Hg] Tracey Inna [employer] Work Phone: [facility] 08-01-2023 10:34-0500 Body mass index (BMI) [Ratio] 30.85 kg/m2 Stacia Baker DO Work Phone: [employer] 08-01-2023 10:34-0500 Body weight 89.36 kg Stacia Baker DO Work Phone: [employer] 08-01-2023 10:34-0500 Diastolic blood pressure 48 mm[Hg] Stacia Baker DO Work Phone: [employer] 08-01-2023 10:34-0500 Systolic blood pressure 100 mm[Hg] Stacia VODECLIC DO Work Phone: [employer] 05-02-2021 12:00-0400 Body height 170.18 cm Sheryl Silva Other [employer] Other 05-02-2021 12:00-0400 Body mass index (BMI) [Ratio] 32.42 kg/m2 Sheryl Silva Other [employer] Other 05-02-2021 12:00-0400 Body temperature 97.5 [degF] Sheryl Silva Other [employer] Other 05-02-2021 12:00-0400 Body weight 93.9 kg Sheryl Silva Other [employer] Other 05-02-2021 12:00-0400 SaO2% (BldA) [Mass fraction] 99 % Sheryl Silva Other [employer] Other Encounters Encounter Date Encounter Type Care Provider Facility Start: 06-18-2024 End: 06-18-2024 Emergency department patient visit [facility] Start: 08-29-2023 End: 08-29-2023 ambulatory TRACEY INNA Not Available Start: 08-29-2023 End: 08-29-2023 Office outpatient visit 15 minutes Tracey Keith DO Work Phone: [facility] Comment on above: S/P D&C (status post dilation and curettage) Start: 08-18-2023 Telephone encounter Lauren ontiveros MD Work Phone: [facility] Start: 08-18-2023 End: 08-18-2023 Evaluation and management of inpatient [facility] Start: 08-18-2023 End: 08-18-2023 Evaluation and management of inpatient [facility] Start: 08-17-2023 End: 08-17-2023 Orders Only Deven Valadez [facility] Comment on above: Missed (Anabelle emanuel Dx); Pre-op testing Start: 08-17-2023 Patient encounter status Deven Tsang gisela [facility] Start: 08-17-2023 Encounter for other preprocedural examination [facility] Start: 08-15-2023 Orders Only Stacia Baker DO Work Phone: [facility] Comment on above: SAB (spontaneous abo rtion) (Primary Dx) Start: 08-14-2023 End: 08-14-2023 ambulatory [facility] Start: 08-09-2023 Orders Only Shahana Muro APRN-CNM Work Phone: [facility] Comment on above: SAB (spontaneous abo rtion) (Primary Dx) Start: 08-08-2023 End: 08-08-2023 ambulatory [facility] Start: 08-03-2023 Orders Only Stacia Baker DO Work Phone: [facility] Comment on above: Acute bilateral low back pain without sciatica (Primary Dx) Start: 08-01-2023 End: 08-01-2023 [facility] Start: 08-01-2023 End: 08-01-2023 ambulatory [facility] Start: 08-01-2023 End: 08-01-2023 Office outpatient visit 15 minutes Stacia Baker DO Work Phone: [facility] Comment on above: SAB (spontaneous abo rtion) (Primary Dx); Low back pain, unspecified back pain laterality, unspecified chronicity, unspecified whether sciatica present Start: 07-28-2023 Telephone encounter [facility] Start: 07-25-2023 End: 07-25-2023 ambulatory [facility] Start: 07-18-2023 End: 07-18-2023 ambulatory [facility] Start: 07-18-2023 End: 07-19-2023 ambulatory [facility] Start: 07-10-2023 End: 07-10-2023 ambulatory [facility] Start: 05-02-2021 Office outpatient vi sit 15 minutes Sheryl Silva [facility] Start: 02-22-2020 End: 02-23-[address] NONE LISTED REQUEST Facility: Procedures Date Procedure Procedure Detail Performing Clinician Start: 08-17-2023 Antibody screen Deven Valadez [facility] Start: 08-01-2023 Follow-up visit Follow-up STACIA BAKER Start: 04-12-2023 Adult depression screening assessment Deven Valadez [employer] Start: 03-02-2020 Microscopic observat ion [Identifier] in Cervix by Cyto stain Deven Valadez [facility] Start: 07-31-2019 H/O: section S/P s ection Deven Valadez [employer] H/O: surgery S/P D&C (status post dilation and curettage) Tracey Keith DO Work Phone: Plan of Treatment Date Care Activity Detail Author Start: 08-18-2024 Adult BMI Screening Adult BMI Screen ing [facility] Start: 08-18-2024 Tobacco Screening Tobacco Screening [facility] Start: 08-17-2024 Tobacco Screening Tobacco Screening [facility] Start: 08-01-2024 Adult BMI Screening Adult BMI Screen ing [facility] Start: 08-01-2024 Tobacco Screening Tobacco Screening [facility] Start: 07-04-2024 Adult BMI Screening Adult BMI Screen ing [facility] Start: 07-04-2024 Tobacco Screening Tobacco Screening [facility] Start: 04-12-2024 Depression Screening Depression Scre ening [facility] Start: 08-29-2023 End: 08-29-2024 US Pelvis transvaginal US pelvis transvaginal Imaging Routine S/P D&C (status post dilation and curettage) Expected: 08/29/2023 (Approximate), Expires: 08/29/2024 [facility] Work Phone: Comment on above: Expected: 08/29/2023 (Approximate), Expires: 08/29/2024 Start: 08-18-2023 End: 08-18-2023 Admission to same day surgery center 08/18/2023 9:00 AM EST - 08/18/2023 10:00 AM EST Surgery [facility] [address] [place] [id number] Lauren Maldonado MD [address] [place] [address] DILATION CURETTAGE SUCTION [20714 (CPT )] [facility] Comment on above: DILATION CURETTAGE S UCTION [62940 (CPT )] Start: 08-18-2023 End: 08-18-2023 Anesthesia consultation 08/18/2023 9:00 AM EST Anesthesia Event [facility] - Surgery [address] [place] [id number] Rain Box MD [address] [place] [address] [facility] - [facility] Start: 08-18-2023 End: 08-18-2023 Dilation & curettage dx&/ther nonobstetric DILATION CURETTAGE SUCTION missed AB, retained products of conception 08/18/2023 9:00 AM EST [facility] Start: 08-18-2023 Subsequent hospital visit by physician 08/18/2023 9:00 AM EST Hospital Encounter [facility] [address] [facility] [place] [id number] Lauren Maldonado MD [address] [place] [place] [address] [facility] Start: 08-17-2023 End: 08-17-2023 Telemedicine consultation with patient 08/17/2023 10:00 AM EST Telemedicine [facility] [address] [place] [facility] [place] [address] Stacia Baker DO [address] [place], [place] [id number] [facility] Start: 08-16-2023 End: 08-09-2024 hCG, quantitative, hCG, quantitative, Lab Routine SAB (spontaneous ) Expected: 08/16/2023 (Approximate), Expires: 08/09/2024 [facility] Work Phone: Comment on above: Expected: 08/16/2023 (Approximate), Expires: 08/09/2024 Start: 08-15-2023 End: 08-15-2023 Patient encounter procedure 08/15/2023 1:30 PM EST Office Visit [facility] [address] [place] [phone] Stacia Baker DO [address] [place], [place] [phone] [facility] Start: 08-01-2023 End: 08-01-2024 US Pelvis transabdominal and transvaginal Ultrasound pelvic with transvaginal Imaging Routine SAB (spontaneous ) Low back pain, unspecified back pain laterality, unspecified chronicity, unspecified whether sciatica present Expected: 08/01/2023, Expires: 08/01/2024 [facility] Work Phone: Comment on above: Expected: 08/01/2023 , Expires: 08/01/2024 Start: 08-01-2023 End: 08-01-2023 Patient encounter procedure 08/01/2023 10:30 AM EST Office Visit [facility] [address] [facility] [address] [place] [address] Stacia Baker DO [address] [place], [place] [id number] [facility] Start: 04-11-2023 Adult BMI Follow Up Plan Adult BMI Follow Up Plan [facility] Start: 03-24-2023 Influenza vaccination Influenza Vacc ine [facility] Start: 03-02-2023 Screening for malign ant neoplasm of cervix Pap Smear [facility] Start: 2009 DTaP,Tdap and Td Vac cines (1 - Tdap) DTaP,Tdap and Td Vaccines (1 - Tdap) [facility] Start: 1990 Tobacco Counseling Tobacco Counselin g [facility] End: 08-15-2024 CBC W Auto Differential panel - Blood CBC auto differential Lab Routine SAB (spontaneous ) 1 Occurrences starting 08/15/2023 until 08/15/2024 [facility] Work [facility]: Comment on above: 1 Occurrences starti ng 08/15/2023 until 08/15/2024 End: 08-15-2024 hCG, quantitative, hCG, quantitative, Lab Routine SAB (spontaneous ) 1 Occurrences starting 08/15/2023 until 08/15/2024 [facility] Comment on above: 1 Occurrences starti ng 08/15/2023 until 08/15/2024 Immunizations Immunization Date Immunization Notes Care Provider Juan Ramon pope NEGATED: Highlighted row has not occurred!07-30-2019 measles, mumps and rubella virus vaccine Deven Valadez [facility] Comment on above: Deferred: - IMMUNE Deferred: Other - IM MUNE NEGATED: Highlighted row has not occurred!07-30-2019 tetanus toxoid, reduced diphtheria toxoid, and acellular pertussis vaccine, adsorbed Deven Valadez [facility] Payers Date Payer Category Payer Private Health Insurance [facility] [id number] 2022-Present [phone] [address] [place] [address] [id number] 2022 Medicaid [employer] [place] [id number] 2022-Present [address] [place] [address] [id number] 2022 Private Health Insurance [id number] 1990 Unknown [id number] 2.16.840.1.752684.3.579. 2.593 1990 Unknown [id number] 2.16.840.1.729163.3.579. 2.1286 1990 Unknown [id number] 2.16.840.1.860735.3.579. 2.1286 1990 Unknown [id number] 2.16.840.1.887896.3.579. 2.1259 1990 Unknown [id number] 2.16.840.1.803083.3.579. 2.1286 1990 Unknown [id number] 2.16.840.1.911680.3.579. 2.1286 1990 Unknown [id number] 2.16.840.1.936002.3.579. 2.1286 1990 Unknown [id number] 2.16.840.1.191653.3.579. 2.1286 1990 Unknown [id number] 2.16.840.1.233881.3.579. 2.128 1990 Unknown [id number] 2.16.840.1.334229.3.579. 2.6 1990 Unknown [id number] 2.16.840.1.132053.3.579. 2.1285 1990 Unknown [id number] 2.16.840.1.929494.3.579. 2.1285 1990 Unknown [id number] 2.16.840.1.108558.3.579. 2.1285 1990 Unknown [id number] 2.16.840.1.365264.3.579. 2.1285 1990 Unknown [id number] 2.16.840.1.280959.3.579. 2.1285 1990 Unknown [id number] 2.16.840.1.864315.3.579. 2.1285 1990 Unknown [id number] 2.16.840.1.095188.3.579. 2.1285 1990 Unknown [id number] 2.16.840.1.482690.3.579. 2.6 1959 Private Health Insurance [id number] Social History Date Type Detail Facility Start: 03-12-2023 End: 07-04-2023 Sex Assigned At [facility] Start: 04-23-2012 End: 03-12-2023 Tobacco smoking status NHIS Smokes tobacco daily [facility] Start: 04-23-2012 End: 06-23-2023 History of tobacco use Cigarette Smoker [facility] Start: 03-30-2021 End: 03-12-2023 Cigarettes smoked current (pack per day) - Reported 0.5 [facility] Start: 03-30-2021 End: 08-01-2023 Tobacco use and exposure Smokeless tobacco non-user [facility] Start: 07-04-2023 End: 08-18-2023 Alcohol intake Ex-drinker (finding) [facility] Adolescent depressio n screening assessment 5 [facility] The thought of harmi ng myself has occurred to me Never [facility] Start: 1990 Sex Assigned At Female [facility] Start: 07-26-2021 Gender identity Identifies as female gender (finding) [facility] Start: 07-26-2021 Sexual orientation Heterosexual (finding) [facility] Start: 08-01-2023 Tobacco smoking status NHIS Ex-smoker [facility] End: 06-23-2023 History of tobacco use Current smoker [facility] Start: 08-29-2023 Alcohol intake Current drinker of alcohol (finding) [facility] Start: 03-12-2023 Alcohol Comment 1-2 drinks less than monthly in the past year, Caffeine intake: 2-3 cups per day coffee [facility] Start: 1990 Sex Assigned At Not on file [facility] Clinical Notes 05-02-2021 to 08-29-2023 Tracey [...] nursing note reviewed. Exam conducted with a physical director present. Vitals: Estimated body mass index is [...] Angelia Skelton LPN on behalf of: Tracey Ketih DO documented in this encounter [facility] 08-18-2023 Miscellaneous Notes Formattin g of this note might be different from the original. Adri at [facility] states they do not have the generic methergine prescribed for Pt. Adri states she called 2 other Pharmacies in [facility] & they do not have it either. Please send alternate medication RX to [facility]. Advised Adri at [facility] Pt would be called when new RX is sent. IS NONE DISREGARD AT THIS POINT THANK YOU Pt left VM on 08/18 at 4:22pm, but phones were not forwarded yet. Have tried calling Pt 3 times this morning, but no answer and no VM set up. 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 documented in this encounter [facility] 08-18-2023 [facility] Adri at [facility] states they do not have the generic methergine prescribed for Pt. Adri states she called 2 other Pharmacies in [facility] & they do not have it either. Please send alternate medication RX to [facility]. Advised Adri at [facility] Pt would be called when new RX is sent. [facility] 08-18-2023 [facility] IS NONE DISREGARD AT THIS POINT [facility]ANK YOU [facility]18[facility]23 Telephone encount er Note Pt left VM on 08/18 at 4:22pm, but phones were not forwarded yet. Have tried calling Pt 3 times this morning, but no answer and no VM set up. 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 Pt was agreeable to this information. 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 Dr. Maldonado would like a CBC & Type & Screen ordered for the patient and the patient to be NPO after midnight. Surgery scheduled with [facility] in surgery scheduling for 08/18/23 [...] & screen drawn. documented in this encounter [employer] 08-17-2023 Telephone encount er Note Per Dr. Baker patient needs to be schedule for surgery with her or Dr. Maldonado for a missed ab & retained products of conception. Sugar talked to Dr. Maldonado & Dr. 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 Dr. Maldonado would like a CBC & [...] to have the type & screen drawn. [facility] 08-17-2023 History of Presen t illness Narrative Ordered Type and Screen per Dr Maldonado documented in this encounter [facility] 08-17-2023 Miscellaneous Notes Addended by: DEVEN VALADEZ on: 08/17/2023 01:20 PM Modules accepted: Orders documented in this encounter [facility] 08-17-2023 Note Addended by: DEVEN VALADEZ on: 08/17/2023 01:20 PM Modules accepted: Orders [facility] 08-15-2023 History of Presen t illness Narrative HCG and CBC ordered documented in this encounter [facility] 08-09-2023 History of Presen t illness Narrative Order placed for hCG as we're trending after SAB. Pt. Notified via [employer] and has been seen in the office in the last week by Dr. Baker. [facility] 08/09/23 0846 documented in this encounter [facility] 08-03-2023 History of Presen t illness Narrative Prescription for Motrin placed documented in this encounter [facility] 08-03-2023 Miscellaneous Notes Formattin g of this note might be different from the original. Pt states she was told at her appointment on that a RX for Motrin would be sent to [facility]. 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 Please advise. Thank you Unable to reach Pt. Advised Pt RX was sent. documented in this encounter [facility] 08-03-2023 Telephone encount er Note Pt states she was told at her appointment on that a RX for Motrin would be sent to [facility]. 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 Please advise. Thank you [facility] 08-03-2023 Telephone encount er Note Unable to reach Pt. [facility] 08-03-2023 Telephone encount er Note Advised Pt RX was sent. [facility] 08-01-2023 History of Presen t illness Narrative Subjective Patient ID: Juanjose Geronimo is a pleasant 33 y.o. female who presents today for follow-up of spontaneous . Patient had an SAB in early June. She was seen and treated initially at [facility] emergency room, and has been following here [...] some tissue still in her uterus at [facility]. This was 1 month ago. She has [...] products of conception. documented in this encounter [facility] 07-28-2023 Miscellaneous Notes Formattin g of this note might be different from the original. Called and left vm for pt to call office back regarding her HCG that was done 07/25/23. Pt will need to have more drawn until they are less than 5 documented in this encounter [facility] 07-28-2023 Telephone encount er Note Called and left vm for pt to call office back regarding her HCG that was done 07/25/23. Pt will need to have more drawn until they are less than 5 [facility] 05-02-2021 Evaluation note Encounter Date [...] Patient care instructions given in writting by [facility] Home document. [employer] Other Evaluation note* Diagnosis SAB (spontaneous )- Primary Unspecified spontaneous without mention of complication Low back pain, unspecified back pain laterality, unspecified chronicity, unspecified whether sciatica present [facility] Diagnosis Acute bilateral low back pain without sciatica- Primary [facility]* Diagnosis SAB (spontaneous )- Primary Unspecified spontaneous without mention of complication documented [facility] this [facility]* Diagnosis SAB (spontaneous )- Primary Unspecified spontaneous without mention of complication documented [facility] this [facility]* Diagnosis Missed - Primary Pre-op testing Unspecified pre-operative examination documented [facility] this [facility]* Diagnosis S/P D&C (status post dilation and curettage) Other postprocedural status [facility] - Reported* Type Description Date Surgical History tonsillectomy and adenoidectomy Surgical History C section Surgical History cholecystectomy [employer] Other InstructionsNot on filedocumented in this encounter [facility] filed[facility] on filedocumented in this [facility] filedocumented in this encounter [facility] filedocumented in this encounter [facility] Summary Purpose Family History No Family [...] and content) DATE CREATED AUTHOR 10/05/2021 [facility] DATE CREATED AUTHOR AUTHOR'S ORGANIZ ATION 08/20/2023 [facility] DATE CREATED AUTHOR AUTHOR'S ORGANIZ ATION 08/30/2023 [facility] EPIC DATE CREATED AUTHOR AUTHOR'S ORGANIZ ATION 06/21/2024 [facility] REASON FOR VISIT (unrecogniz ed section and content) Reason Comments Follow-up SAB Reason Comments ER Follow-up Care Teams (unrecognized sec tion and content) Data Operations Manager Relationship Specialty Start Date End Date Shagufta Nelson DO [address] [place] [address] PCP - General Family Medicine 11/01/22 Data Operations Manager Relationship Specialty Start Date End Date Shagufta Nelson DO [address] [place] [address] PCP - General Family Medicine 11/01/22 Data Operations Manager Relationship Specialty Start Date End Date Shagufta Nelson DO [address] [place] [address] PCP - General Family Medicine 11/01/22 Data Operations Manager Relationship Specialty Start Date End Date Shagufta Nelson DO [address] [place] [address] PCP - General Family Medicine 11/01/22 Data Operations Manager Relationship Specialty Start Date End Date Shagufta Nelson DO [address] [place] [address] PCP - General Family Medicine 11/01/22 Data Operations Manager Relationship Specialty Start Date End Date Shagufta Nelson DO [address] [place] [address] PCP - General Family Medicine 08/29/23 FOR [...] BE BASED ON THE PRIMARY CLINICAL RECORDS. [employer] [facility] provides no warranty or guarantee of the accuracy or completeness of information in this document.
== END 2024-08-31 18:18 | disposition home or self-care (01) ==
LOC: ER 18:52
PROVIDERS: Emergency Provider Emergency Medicine
DX: J06.9 Acute upper respiratory infection, unspecified (principal); Z20.828 Contact with and (suspected) exposure to other viral communicable diseases; F17.200 Nicotine dependence, unspecified, uncomplicated
CPT/HCPCS: 99283; J1100

== ENCOUNTER 2024-09-17 19:37 | Outpatient (REF) | payer OTHER, SELFPAY ==
--- OUTSIDE RECORDS SUMMARY | 2024-09-17 19:40 | XMS_ITS | CCD ---
Author Organization [facility] CliniSyms Care Team Providers Care Picker/Puller Name Role Phone REQUEST, DR NONE LISTED Primary Care Unavaila juventino ALDANA, DR ZACK Do Admitting Unavailable GRECHNY, ERICKA DIAZ Consulting Unavailable JOVAN, DR ZACK Do Attending Unavailable JUANITA WHEELER Consulting Unavailable Sheryl Silva Unavailable STACIA BAKER Attending Unavailable RUMSCHLAG, SHAGUFTA [...] M Referring Unavailable STACIA BAKER Attending Unavailable STAICA BAKER Referring Unavailable RUMSCHLAG, SHAGUFTA K Primary [...] Referring Unavailable ERICA, LAUREN L Admitting Unavailable ERICA, LAUREN L Attending Unavailable RUMSCHLAG, SHAGUFTA K Primary Care Unavailable RAIN BOX Attending Unavailable SERVICES, [facility] Primary Care Unava ilable Shagufta Heredia DO Primary Care Provider [phone] Allergies Allergy Classification Reported Allergen(s) Allergy Type Date of Onset Reaction(s) Facility (15 sources) Amoxicillin; Translations: [AMOXICILLIN] Drug Allergy anaphylaxis, Hives, Rash [facility] Medications Current Medications Medication Drug Class(es) Dates Sig (Normalized) Sig (Original) acetaminophen 325 mg / HYDROcodone bitartrate 5 mg oral tablet (11 sources) Opioid Agonist Start: 07-04-2023 HYDROcodone-aceta minophen [...] Ethinyl Estradiol / Ferrous fumarate / Norethindrone (12 sources) Estrogen Start: 08-29-2023 End: 08-28-2024 norethindrone-eth [...] Apr, Active ibuprofen 800 mg oral tablet (11 sources) Nonsteroidal Anti-inflammatory Drug Start: 024 take [...] Active ondansetron 4 mg disintegrating oral tablet (11 sources) Serotonin-3 Receptor Antagonist Start: ondansetron ODT (ZOFRAN ODT) 4 mg disintegrating tablet Completed/Discontinued Medications Medication Drug Class(es) Dates Sig (Normalized) Sig (Original) ketorolac tromethamine 10 mg oral tablet (3 sources) Nonsteroidal Anti-inflammatory Drug, Cyclooxygenase Inhibitor Start: 07-04-2023 End: 08-03-2023 ketorolac (TORADOL) 10 mg tablet Problems Active Problems Problem Classification Problem Date Documented Da te Episodic/Chronic Other acquired deformities (11 sources) Scoliosis deformity of spine; Translations: [Scoliosis, unspecified] Onset: 02-14-2019 02-14-2019 Chronic Substance-related disorders (12 sources) Nicotine dependence, cigarettes, uncomplicated; Translations: [Smoker] [...] Onset: 05-02-2021 Resolved: 05-02-2021 Episodic Mood disorders (11 sources) Mood disorders Onset: 04-12-2023 04-12-2023 Other complications of (1 source) Missed ; Translations: [Missed ] Onset: 08-17-2023 Episodic Other complications of (1 source) Retained products of conception; Translations: [Missed ] 08-17-2023 Episodic Other complications of (1 source) Missed miscarriage; Translations: [Missed ] 08-17-2023 Episodic Other connective tissue disease (2 [...] 05-02-2021 Resolved: 05-02-2021 Episodic Residual codes; unclassified (11 sources) Family history of development disorder; Translations: [Family history of other endocrine, nutritional and metabolic diseases] Onset: 02-14-2019 02-14-2019 Episodic Skin and subcutaneous tissue infections (1 source) Cellulitis of left lower limb; Translations: [CELLULITIS OF LEFT LOWER LIMB] Onset: 2020 Episodic Spondylosis; intervertebral disc disorders; other back problems (2 sources) Low back pain; Translations: [Low back pain, unspecified back pain laterality, unspecified chronicity, unspecified whether sciatica present] 08-01-2023 Episodic Spontaneous (6 sources) Complete or unspecified spontaneous without complication; Translations: [Miscarriage] Onset: 07-18-2023 08-01-2023 Episodic Substance-related disorders (11 sources) Marijuana user; Translations: [Cannabis use, unspecified, uncomplicated] Onset: 02-14-2019 02-14-2019 Episodic Unclassified (11 sources) Onset: 04-11-2022 04-11-2022 Results Test Name Value Interpretation Reference Range Facility Surgical Pathologyon 024 Surgical Pathology Normal [facility] Comment on above: Result Comment: [facility] [address] [place] [address] Surgical Pathology Consultation Patient Name:JUANJOSE GERONIMO:1990 (Age: 33)Gender:FTaken:4Reported:08/23/2023hysician(s):Lauren Tay M.D. ([phone])Copy To: Rec. #:[id number]: #[id number] Final Pathologic Diagnosis Products of conception: Abundant blood clot admixed with fragments of hemorrhagic and focally necrotic decidual tissue and secretory endometrium. Occasional immature chorionic villi identified. The findings are consistent with retained products of conception. Report Electronically Signed Out ao/08/23/2023flory Benton MD Interpretation performed at [facility] [employer], [address] [place] [address], License number: [id number]. Clinical History Missed AB, retained products of conception. Gross Description Received in formalin labeled JUANPABLO, uterus Karyotype: No Aggregate measurement: 6.1 x 4.8 x 1.2 cm Placenta: No Decidua/Clot: 6.1 x 4.8 x 1.2 cm Gestational Sac: No Tissue: No Molar Tissue: No Cassettes: A-E decidua/clot (5, ss, [id number],m6) DM dm/08/18/2023 Specimen(s) Received Products of conception Fee Codes(s): 1; 66545 CBC AND AUTO DIFFon 08-17-19 24 ABSOLUTE BASOPHIL 0.0 X10E9/L Normal 0.0-0.2 [facility] Comment on above: Performed By: #### C BCA, CMP, 81491-9 #### [facility] ([id number]) [address] [place] [address], [address] [place] [address] ABSOLUTE NEUTROPHIL 3.6 X10E9/L Normal 1.5-6.6 [facility] Comment on above: Performed By: #### Judi PERRY CMP, #### [facility] ([id number]) [address], [address] [place] [address] Basophils/100 WBC (Bld) 0.4 % Normal [facility] Comment on above: Performed By: #### Judi PERRY CMP, #### [facility] ([id number]) [address], [address] [place] [address] Eosinophils (Bld) [#/Vol] 0.1 10*3/uL Normal 0.0-0.4 [facility] Comment on above: Performed By: #### Judi PERRY CMP, #### [facility] ([id number]) [address], [address] [place] [address] Eosinophils/100 WBC (Bld) 1.8 % Normal [facility] Comment on above: Performed By: #### Juid PERRY CMP, #### [facility] ([id number]) [address], [address] [place] [address] Erythrocyte distribution width (RBC) [Ratio] 13.8 % Normal 11.5-15.0 [facility] Comment on above: Performed By: #### Judi PERRY CMP, #### [facility] ([id number]) [address], [address] [place] [address] Hematocrit (Bld) [Volume fraction] 37.7 % Normal 35-47 [facility] Comment on above: Performed By: #### Judi PERRY CMP, #### [facility] ([id number]) [address], [address] [place] [address] Hemoglobin (Bld) [Mass/Vol] 12.5 g/dL Normal 11.7-15.5 [facility] Comment on above: Performed By: #### Judi PERRY CMP, #### [facility] ([id number]) [address], [facility] [address] [place] [address] Lymphocytes (Bld) [#/Vol] 2.3 10*3/uL Normal 1.0-3.5 [facility] Comment on above: Performed By: #### Judi PERRY CMP, #### [facility] ([id number]) [address], [facility] [address] [place] [address] Lymphocytes/100 WBC (Bld) 35.7 % Normal [facility] Comment on above: Performed By: #### Judi PERRY CMP, #### [facility] ([id number]) [address], [address] [place] [address] MCH (RBC) [Entitic mass] 29.9 pg Normal 27-34 [facility] Comment on above: Performed By: #### Judi PERRY CMP, #### [facility] ([id number]) [address], [address] [place] [address] MCHC (RBC) [Mass/Vol] 33.2 g/dL Normal 32-36 [facility] Comment on above: Performed By: #### Judi PERRY CMP, #### [facility] ([id number]) [address], [address] [place] [address] MCV (RBC) [Entitic vol] 90 fL Normal 80-100 [facility] Comment on above: Performed By: #### Judi PERRY CMP, #### [facility] ([id number]) [address], [address] [place] [address] Monocytes (Bld) [#/Vol] 0.4 10*3/uL Normal 0-0.9 [facility] Comment on above: Performed By: #### C BCA, CMP, #### [facility] ([id number]) [address], [address] [place] [address] Monocytes/100 WBC (Bld) 5.8 % Normal [facility] Comment on above: Performed By: #### C BCA, CMP, #### [facility] ([id number]) [address], [address] [place] [address] Neutrophils/100 WBC (Bld) 56.3 % Normal [facility] Comment on above: Performed By: #### C ORLANDO, CMP, #### [facility] ([id number]) [address], [address] [place] [address] Platelet mean volume (Bld) [Entitic vol] 8.7 fL Normal 7-12 [facility] Comment on above: Performed By: #### C BCA, CMP, #### [facility] ([id number]) [address], [address] [place] [address] Platelets (Bld) [#/Vol] 244 10*3/uL Normal 150-450 [facility] Comment on above: Performed By: #### Judi BCA, CMP, #### [facility] ([id number]) [address], [address] [place] [address] RBC COUNT 4.18 X10E12/L Normal 3.80-5.20 [facility] Comment on above: Performed By: #### C BCA, CMP, #### [facility] ([id number]) [address], [address] [place] [address] WBC (Bld) [#/Vol] 6.5 10*3/uL Normal 4.0-11.0 [facility] Comment on above: Performed By: #### C BCA, CMP, #### [facility] ([id number]) [address], [address] [place] [address] COMPREHENSIVE METABOLIC PANE Cirilo 08-17-2023 Albumin [Mass/Vol] 4.5 g/dL Normal 3.2-5.3 [facility] Comment on above: Performed By: #### C BCA, CMP, 38844-7 #### [facility] ([id number]) [address], [address] [place] [address] ALP [Catalytic activity/Vol] 52 U/L Normal 39-130 [facility] Comment on above: Performed By: #### C BCA, CMP, #### [facility] ([id number]) [address], [address] [place] [address] ALT [Catalytic activity/Vol] 22 U/L Normal 0-31 [facility] Comment on above: Performed By: #### C BCA, CMP, #### [facility] ([id number]) [address], [address] [place] [address] Anion gap [Moles/Vol] 6 mmol/L Normal 5-15 [facility] Comment on above: Performed By: #### C BCA, CMP, #### [facility] ([id number]) [address], [address] [place] [address] AST [Catalytic activity/Vol] 14 U/L Normal 0-41 [facility] Comment on above: Performed By: #### C BCA, CMP, #### [facility] ([id number]) [address], [address] [place] [address] Bilirubin [Mass/Vol] 0.4 mg/dL Normal 0.3-1.2 [facility] Comment on above: Performed By: #### C BCA, CMP, #### [facility] ([id number]) [address], [address] [place] [address] Calcium [Mass/Vol] 8.8 mg/dL Normal 8.5-10.5 [facility] Comment on above: Performed By: #### C ORLANDO CMP, #### [facility] ([id number]) [address], [facility] [address] [place] [address] Chloride [Moles/Vol] 105 mmol/L Normal 98-109 [facility] Comment on above: Performed By: #### C BCA, CMP, #### [facility] ([id number]) [address], [facility] [address] [place] [address] CO2 [Moles/Vol] 27 mmol/L Normal 22-32 [facility] Comment on above: Performed By: #### C ORLANDO, CMP, #### [facility] ([id number]) [address], [address] [place] [address] Creatinine [Mass/Vol] 0.74 mg/dL Normal 0.40-1.00 [facility] Comment on above: Result Comment: METH OD TRACEABLE TO IDMS STANDARD Performed By: #### C ORLANDO, CMP, 19851-9 #### [facility] ([id number]) [address], [address] [place] [address] eGFR (CKD-EPI) NON-RACE DEPENDENT >90 Normal >59 [facility] Comment on above: Result Comment: Reported eGFR is based on the CKD-EPI 2020 equation that does not use a race coefficient. Performed By: #### C BCA, CMP, #### [facility] ([id number]) [address], [address] [place] [address] Glucose [Mass/Vol] 86 mg/dL Normal 65-99 [facility] Comment on above: Performed By: #### C BCA, CMP, #### [facility] ([id number]) [address], [address] [place] [address] Potassium [Moles/Vol] 4.4 mmol/L Normal 3.5-5.0 [facility] Comment on above: Performed By: #### C BCA, CMP, 07124-4 #### [facility] ([id number]) [address], [address] [place] [address] Protein [Mass/Vol] 7.2 g/dL Normal 6.0-8.0 [facility] Comment on above: Performed By: #### C BCA, CMP, 61583-2 #### [facility] ([id number]) [address], [address] [place] [address] Sodium [Moles/Vol] 138 mmol/L Normal 134-146 [facility] Comment on above: Performed By: #### C BCA, CMP, 18963-7 #### [facility] ([id number]) [address], [address] [place] [address] Urea nitrogen [Mass/Vol] 13 mg/dL Normal 5-23 [facility] Comment on above: Performed By: #### C BCA, CMP, 43517-8 #### [facility] ([id number]) [address], [address] [place] [address] Comprehensive metabolic pane cirilo 08-17-2023 Albumin [Mass/Vol] 4.5 g/dL 3.2 - 5.3 g/dL [facility] ALP [Catalytic activity/Vol] 52 U/L 39 - 130 U/L [facility] ALT No additional P-5'-P [Catalytic activity/Vol] 22 U/L 0 - 31 U/L [facility] Anion gap [Moles/Vol] 6 mmol/L 5 - 15 mmol/L [facility] AST [Catalytic activity/Vol] 14 U/L 0 - 41 U/L [facility] Bilirubin [Mass/Vol] 0.4 mg/dL 0.3 - 1.2 mg/dL [facility] Calcium [Mass/Vol] 8.8 mg/dL 8.5 - 10. 5 mg/dL [facility] Chloride [Moles/Vol] 105 mmol/L 98 - 109 mmol/L [facility] CO2 [Moles/Vol] 27 mmol/L 22 - 32 mmol/L [facility] Creatinine [Mass/Vol] 0.74 mg/dL 0.40 - 1.00 mg/dL [facility] Comment on above: METHOD TRACEABLE TO [facility] STANDARD eGFR (CKD-EPI)non-race dependent - PINF [facility] Comment on above: Reported eGFR is based on the CKD-EPI 2020 equation that does not use a race coefficient. Glucose [Mass/Vol] 86 mg/dL 65 - 99 mg/dL [facility] Potassium [Moles/Vol] 4.4 mmol/L 3.5 - 5.0 mmol/L [facility] Protein [Mass/Vol] 7.2 g/dL 6.0 - 8.0 g/dL [facility] Sodium [Moles/Vol] 138 mmol/L 134 - 146 mmol/L [facility] Urea nitrogen [Mass/Vol] 13 mg/dL 5 - 23 mg/dL [facility] HCG.beta subunit IA 3rd IS Q non 08-17-2023 HCG.beta subunit Qn 12 m[IU]/mL Normal [facility] Comment on above: Result Comment: NEW REFERENCE [...] neoplasms. Performed By: #### C BCA, CMP, 22727-5 #### [facility] ([id number]) [address], [address] [place] [address] Type and screen(includes ind irect vero)on 08-17-2023 [...] Pablo MD on 08/14/2023 1:49 PM Normal [facility] HCG.beta subunit IA 3rd IS Q non 08-08-2023 HCG.beta subunit Qn 17 m[IU]/mL Normal [facility] Comment on above: Result Comment: NEW REFERENCE [...] By: #### 2 0415-6 #### [facility] ([id number]) [address] [place] [address], [address] [place] [id number] HCG.beta subunit IA 3rd IS Q non 08-01-2023 HCG.beta subunit Qn 24 m[IU]/mL Normal [facility] Comment on above: Result Comment: NEW REFERENCE [...] By: #### 2 0415-6 #### [facility] ([id number]) [address] [place] [address], [address] [place] [address] HCG.beta subunit IA 3rd IS Q non 07-25-2023 HCG.beta subunit Qn 31 m[IU]/mL Normal [facility] Comment on above: Result Comment: NEW REFERENCE [...] By: #### 2 0415-6 #### [facility] ([id number]) [address] [place] [address], [address] [place] [address] HCG.beta subunit IA 3rd IS Q non 07-18-2023 HCG.beta subunit Qn 39 m[IU]/mL Normal [facility] Comment on above: Result Comment: NEW REFERENCE [...] By: #### 2 0415-6 #### [facility] ([id number]) [address] [place] [address], [address] [place] [address] HCG.beta subunit IA 3rd IS Q non 07-10-2023 HCG.beta subunit Qn 47 m[IU]/mL Normal [facility] Comment on above: Result Comment: NEW REFERENCE [...] By: #### 2 0415-6 #### [facility] ([id number]) [address] [place] [address] COVID Quick Testingon 2020 Result Negative [employer] Other Quick Strepon 05-02-2021 S. pyogenes Org specific cx Ql (Throat) Negative [employer] Other Quick Strep [employer] Other Vital Signs Date Time Vital Sign Value Performing Clinician Facility 08-29-2023 10:36-0500 Body height 170.2 cm [employer] Work Phone: [facility] 08-29-2023 10:36-0500 Body mass index (BMI) [Ratio] 31.23 kg/m2 Tracey Inna Guavus Work Phone: [facility] 08-29-2023 10:36-0500 Body weight 90.45 kg Tracey Inna Guavus Work Phone: [facility] 08-29-2023 10:36-0500 Diastolic blood pressure 60 mm[Hg] Tracey Inna Guavus Work Phone: [facility] 08-29-2023 10:36-0500 Systolic blood pressure 104 mm[Hg] Tracey Inna Guavus Work Phone: [facility] 08-01-2023 10:34-0500 Body mass index (BMI) [Ratio] 30.85 kg/m2 SCADA Access DO Work Phone: [employer] [facility] 08-01-2023 10:34-0500 Body weight 89.36 kg Stacia [employer] DO Work Phone: [employer] 08-01-2023 10:34-0500 Diastolic blood pressure 48 mm[Hg] [employer]ADA Access DO Work Phone: [employer] 08-01-2023 10:34-0500 Systolic blood pressure 100 mm[Hg] [employer] DO Work Phone: [employer] 05-02-2021 12:00-0400 Body height 170.18 cm Sheryl Silva Other [employer] Other 05-02-2021 12:00-0400 Body mass index (BMI) [Ratio] 32.42 kg/m2 Sheryl Silva Other [employer] Other 05-02-2021 12:00-0400 Body temperature 97.5 [degF] Sheryl Silva Other [employer] Other 05-02-2021 12:00-0400 Body weight 93.9 kg Sheryl Silva Other [employer] Other 05-02-2021 12:00-0400 SaO2% (BldA) [Mass fraction] 99 % Shreyl Silva Other [employer] Other Encounters Encounter Date Encounter Type Care Provider Facility Start: 06-18-2024 End: 06-18-2024 Emergency department patient visit [facility] Start: 08-29-2023 End: 08-29-2023 ambulatory TRACEY INNA Not Available Start: 08-29-2023 End: 08-29-2023 Office outpatient visit 15 minutes Tracey Granto DO Work Phone: [facility] Comment on above: S/P D&C (status post dilation and curettage) Start: 08-18-2023 Telephone encounter Lauren ontiveros MD Work Phone: [facility] Start: 08-18-2023 End: 08-18-2023 Evaluation and management of inpatient [facility] Start: 08-18-2023 End: 08-18-2023 Evaluation and management of inpatient [facility] Start: 08-17-2023 End: 08-17-2023 ambulatory [facility] Pat Phone Call Provider 1 [facility] - Pre Admit Start: 08-17-2023 End: 08-17-2023 ambulatory [facility] Start: 08-17-2023 End: 08-17-2023 ambulatory STACIA BAKER [facility] Comment on above: Missed (Anabelle emanuel Dx); Pre-op testing Start: 08-17-2023 Patient encounter status Deven higgins [facility] Start: 08-17-2023 Telephone encounter Susannah dwyer [facility] Start: 08-17-2023 End: 08-17-2023 ambulatory [facility] Start: 08-17-2023 Encounter for other preprocedural examination [facility] Start: 08-17-2023 End: 08-17-2023 Office outpatient visit 15 minutes Stacia Baker DO Work Phone: [facility] Comment on above: SAB (spontaneous abo rtion) (Primary Dx); Retained products of conception, early ; Preoperative examination Start: 08-17-2023 End: 08-17-2023 Preprocedural examination done Stacia Baker DO Work Phone: [facility] [employer] [facility] Start: 08-15-2023 Orders Only Stacia Baker DO Work Phone: [facility] Comment on above: SAB (spontaneous abo rtion) (Primary Dx) Start: 08-14-2023 End: 08-14-2023 ambulatory STACIA BAKER [facility] Start: 08-09-2023 Orders Only Shahana Muro [employer] REPRESENTATIVE[employer]CNM Work Phone: [facility] Comment on above: SAB (spontaneous abo rtion) (Primary Dx) Start: 08-08-2023 End: 08-08-2023 [facility] Start: 08-03-2023 Orders Only Stacia Baker DO Work Phone: [facility] Comment on above: Acute bilateral low back pain without sciatica (Primary Dx) Start: 08-01-2023 End: 08-01-2023 ambulatory STACIA BAKER [facility] Start: 08-01-2023 End: 08-01-2023 ambulatory [facility] Start: 08-01-2023 End: 08-01-2023 Office outpatient visit 15 minutes Stacia Baker DO Work Phone: [facility] Comment on above: SAB (spontaneous abo rtion) (Primary Dx); Low back pain, unspecified back pain laterality, unspecified chronicity, unspecified whether sciatica present Start: 07-28-2023 Telephone encounter Deven Lau MA [facility] Start: 07-25-2023 End: 07-25-2023 ambulatory [facility] Start: 07-18-2023 End: 07-18-2023 [facility] Start: 07-18-2023 End: 07-19-2023 [facility] Start: 07-10-2023 End: 07-10-2023 [facility] Start: 05-02-2021 Office outpatient vi sit 15 minutes [facility] Start: 02-22-2020 End: 02-23-[address] NONE LISTED REQUEST Facility: Procedures Date Procedure Procedure Detail Performing Clinician Start: 08-17-2023 Antibody screen Deven Valadez CMA Start: 08-01-2023 Follow-up visit Follow-up STACIA Parul BAKER Start: 04-12-2023 Adult depression screening assessment Deven Valadez REVIEW ASSISTANT Start: 03-02-2020 Microscopic observat ion [Identifier] in Cervix by Cyto stain Deven Valadez REVIEW ASSISTANT Start: 07-31-2019 H/O: section S/P s ection Deven Valadez REVIEW ASSISTANT H/O: surgery S/P D&C (status post dilation and curettage) Tracey Keith DO Work Phone: Plan of Treatment Date Care Activity Detail Author Start: 08-18-2024 Adult BMI Screening Adult BMI Screen ing [facility] Start: 08-18-2024 Tobacco Screening Tobacco Screening [facility] Start: 08-17-2024 Tobacco Screening Tobacco Screening [facility] Start: 08-01-2024 Adult BMI Screening Adult BMI Screen ing [facility] Start: 08-01-2024 Tobacco Screening Tobacco Screening [facility] Start: 07-04-2024 Adult BMI Screening Adult BMI Screen ing [facility] Start: 07-04-2024 Tobacco Screening Tobacco Screening [facility] Start: 04-12-2024 Depression Screening Depression Scre ening [facility] Start: 08-29-2023 End: 08-29-2024 US Pelvis transvaginal US pelvis transvaginal Imaging Routine S/P D&C (status post dilation and curettage) Expected: 08/29/2023 (Approximate), Expires: 08/29/2024 [facility] Work Phone: Comment on above: Expected: 08/29/2023 (Approximate), Expires: 08/29/2024 Start: 08-18-2023 End: 08-18-2023 Admission to same day surgery center 08/18/2023 9:00 AM EST - 08/18/2023 10:00 AM EST Surgery [facility] - Surgery [address] [place] [id number] Lauren Tay MD [address] [address] DILATION CURETTAGE SUCTION [07561 (CPT )] [facility] Comment on above: DILATION CURETTAGE S UCTION [94253 (CPT )] Start: 08-18-2023 End: 08-18-2023 Anesthesia consultation 08/18/2023 9:00 AM EST Anesthesia Event [facility] [address] [place] [phone] Rain Box MD [address] [place] [address] [facility] Start: 08-18-2023 End: 08-18-2023 Dilation & curettage dx&/ther nonobstetric [facility] Start: 08-18-2023 Subsequent hospital visit by physician 08/18/2023 9:00 AM EST Hospital Encounter [facility] [address] [place] [id number] Lauren Tay MD [address] [place], [place] [id number] [facility] Start: 08-17-2023 End: 08-17-2023 Telemedicine consultation with patient 08/17/2023 10:00 AM EST [facility] [address] [place] [phone] Stacia Baker DO [address] [place], [place] [id number] [facility] Start: 08-16-2023 End: 08-09-2024 hCG, quantitative, hCG, quantitative, Lab Routine SAB (spontaneous ) Expected: 08/16/2023 (Approximate), Expires: 08/09/2024 [facility] Work Phone: Comment on above: Expected: 08/16/2023 (Approximate), Expires: 08/09/2024 Start: 08-15-2023 End: 08-15-2023 Patient encounter procedure 08/15/2023 1:30 PM EST Office Visit [facility] [address] [phone] Stacia Baker DO [address] [place] [address] [facility] Start: 08-01-2023 End: [...] AM EST Office Visit [facility] [address] [id number] Stacia Baker DO [address] [place] [address] [facility] Start: 04-11-2023 Adult BMI Follow Up Plan Adult BMI Follow Up Plan [facility] Start: 03-24-2023 Influenza vaccination Influenza Vacc ine [facility] Start: 03-02-2023 Screening for malign ant neoplasm of cervix Pap Smear [facility] Start: 2009 DTaP,Tdap and Td Vac cines (1 - Tdap) DTaP,Tdap and Td Vaccines (1 - Tdap) [facility] Start: 1990 Tobacco Counseling Tobacco Counselin g [facility] End: 08-15-2024 CBC W Auto Differential panel - Blood CBC auto differential Lab Routine SAB (spontaneous ) 1 Occurrences starting 08/15/2023 until 08/15/2024 [facility] Work Phone: Comment on above: 1 Occurrences starti ng 08/15/2023 until 08/15/2024 End: 08-15-2024 hCG, quantitative, hCG, quantitative, Lab Routine SAB (spontaneous ) 1 Occurrences starting 08/15/2023 until 08/15/2024 [facility] on above: 1 Occurrences starti ng 08/15/2023 until 08/15/2024 Immunizations Immunization Date Immunization Notes Care Provider Juan Ramon pope NEGATED: Highlighted row has not occurred!07-30-2019 measles, mumps and rubella virus vaccine Deven Valadez [facility] Comment on above: Deferred: - IMMUNE Deferred: Other - IM MUNE NEGATED: Highlighted row has not occurred!07-30-2019 tetanus toxoid, reduced diphtheria toxoid, and acellular pertussis vaccine, adsorbed Deven Valadez [facility] Payers Date Payer Category Payer Private Health Insurance [facility] [id number] 2022-Present [phone] [address] [place] [address] [id number] 2022 Medicaid [employer] [place] [id number] 2022-Present [address] [place] [address] [id number] 2022 Private Health Insurance [id number] 1990 Unknown [id number] 2.16.840.1.071284.3.579. 2.593 1990 Unknown [id number] 2.16.840.1.385543.3.579. 2.1286 1990 Unknown [id number] 2.16840.1.329497.3.579. 2.1286 1990 Unknown [id number] 2.16.840.1.159263.3.579. 2.1259 1990 Unknown [id number] 2.16.840.1.494354.3.579. 2.1285 1990 Unknown [id number] 2.16.840.1.278393.3.579. 2.1285 1990 Unknown [id number] 2.16.840.1.649495.3.579. 2.1285 1990 Unknown [id number] 2.16.840.1.506272.3.579. 2.1285 1990 Unknown [id number] 2.16.840.1.481762.3.579. 2.1285 1990 Unknown [id number] 2.16.840.1.022411.3.579. 2.1285 1990 Unknown [id number] 2.16.840.1.304037.3.579. 2.1285 1990 Unknown [id number] 2.16.840.1.513729.3.579. 2.1285 1990 Unknown [id number] 2.16.840.1.158466.3.579. 2.1285 1990 Unknown [id number] 2.16.840.1.647581.3.579. 2.1285 1990 Unknown [id number] 2.16.840.1.050578.3.579. 2.1285 1990 Unknown [id number] 2.16.840.1.493621.3.579. 2.1285 1990 Unknown [id number] 2.16.840.1.114060.3.579. 2.1285 1990 Unknown [id number] 2.16.840.1.563608.3.579. 2.1286 1959 Private Health Insurance [id number] Social History Date Type Detail Facility Start: 09-03-2020 End: 08-20-2023 Sex Assigned At [facility] Start: 03-30-2021 End: 03-12-2023 Tobacco smoking status [facility] Smokes tobacco daily [facility] Start: 04-23-2012 End: 06-23-2023 History of tobacco use Cigarette Smoker [facility] Start: 09-03-2020 End: 03-12-2023 Cigarettes smoked current (pack per day) - Reported 0.3 [facility] Start: 08-29-2023 Alcohol intake Current drinker of alcohol (finding) [facility] Start: 03-12-2023 Alcohol Comment 1-2 drinks less than monthly in the past year, Caffeine intake: 2-3 cups per day coffee [facility] Start: 1990 Sex Assigned At Not on file [facility] Start: 03-30-2021 End: 08-01-2023 Tobacco use and exposure Smokeless tobacco non-user [facility] Start: 07-04-2023 End: 08-18-2023 Alcohol intake Ex-drinker (finding) [facility] Adolescent depressio n screening assessment 5 [facility] The thought of harmi ng myself has occurred to me Never [facility] Start: 1990 Sex Assigned At Female [facility] Start: 07-26-2021 Gender identity Identifies as female gender (finding) [facility] Start: 07-26-2021 Sexual orientation Heterosexual (finding) [facility] Start: 08-01-2023 Tobacco smoking status NHIS Ex-smoker [facility] End: 06-23-2023 History of tobacco use Current smoker [facility] Clinical Notes 05-02-2021 to 08-29-2023 Tracey Keith DO - 08/29/2023 10:50 AM ESTTelephone Encounter - Kaylyn Rodríguez - 08/18/2023 12:48 PM ESTTelephone Encounter - Lauren Tay MD - 08/18/2023 12:48 PM EST Note [...] nursing note reviewed. Exam conducted with a white kid buffer present. Vitals: Estimated body mass index is [...] Tracey Keith DO documented in this encounter [facility] 08-18-2023 Miscellaneous Notes Adri at [facility] states they do not have the generic methergine prescribed for Pt. Adri states she called 2 other Pharmacies in [facility] & they do not have it either. Please send alternate medication RX to [facility]. Advised Adri at [facility] Pt would be called when new RX is sent. IS NONE DISREGARD AT THIS POINT THANK YOU Pt left VM on 08/18 at 4:22pm, but phones were not forwarded yet. Have tried calling Pt 3 times this morning, but no answer and no VM set up. Pt called in stating that she still was unable to pick up attendant medication from Pharmacy and wanted to know what she was to do. Per Dr Tay since it has already been a few days since her surgery there is no need to start the medication now. Advised pt that if she is bleeding through a pad an hour or worse than her worst period or is having severe pain she should present to ED for evaluation. Pt was agreeable to this information. documented in this encounter [facility] 08-18-2023 Telephone encounter Note Adri at [facility] states they do not have the generic methergine prescribed for Pt. Adri states she called 2 other Pharmacies in town & they do not have it either. Please send alternate medication RX to [facility]. Advised Adri at [facility] Pt would be called when new RX is sent. [facility] 08-18-2023 Telephone encounter Note IS NONE DISREGARD AT THIS POINT THANK YOU [facility] 08-18-2023 Telephone encounter Note Pt left VM on 08/18 at 4:22pm, but phones were not forwarded yet. Have tried calling Pt 3 times this morning, but no answer and no VM set up. [facility] 08-18-2023 Telephone encounter Note Pt called in stating that she still was unable to pick up attendant medication from Pharmacy and wanted to know what she was to do. Per Dr Tay since it has already been a few days since her surgery there is no need to start the medication now. Advised pt that if she is bleeding through a pad an hour or worse than her worst period or is having severe pain she should present to ED for evaluation. Pt was agreeable to this information. [facility] 08-17-2023 Nurse Note Preoperative Education Checklist- General Surgery date: 08/18/23 Surgery time: 9a Arrival time: 7a 1. Bring a photo ID and your insurance card with you the day of surgery. You will check in at the main lobby of the [facility]- registration desk is straight ahead as soon as you walk in. Tell them you are here for surgery. 2. If you have a Living Will/Durable Power of Concrete Block Molder for Health Care that is not on file here, please bring a copy the day of surgery. 3. Please shower/bathe the night before surgery with the provided soap or wipes. Do not shower the morning of surgery- you will do use wipes when you arrive here at the hospital before getting into your surgical gown. Do not shave the area of your procedure for 2 days prior to your surgery. 4. NO powder, lotion, perfume/cologne, aftershave, make-up, deodorant, or hair products after you have bathed. 5. NO nail pakistani/acrylic on at least one finger. If you are having a hand, wrist or foot surgery then all nail pakistani and artificial/acrylic nails must be removed from that hand or foot. 6. Avoid ALL Aspirin and non-steroidal anti-inflammatory drugs and certain vitamins (Ibuprofen, Advil, Aleve, Excedrin, Meloxicam, Celebrex, fish/krill oil, etc.) for 7 days prior to surgery as instructed by your surgeon and/or your prescribing doctor. Tylenol IS ALLOWED. If you are on Ticlid, Xarelto, Eliquis, Pradaxa, Plavix or Coumadin, please check with your prescribing doctor for instructions for when to stop them. 7. If you use an inhaler, continue to use it routinely. 8. Nothing to eat or drink (not even water, gum, mints, or hard candy!) AFTER midnight prior to your surgery. 9. Take only medications that you are instructed to on the morning of surgery with a TINY SIP OF WATER. 10. Choose a responsible adult that will be able to drive you home when you are discharged from your hospital stay for your surgery and can stay with you in your home for 24 hours after your procedure. You must NOT drive any vehicle or operate any machinery for 24 hours after surgery. 11. When you dress for your appointment, please wear loose fitting clothing that is appropriate to accommodate your surgical area procedure. BRING WITH YOU ANY DEVICES YOU MAY NEED: LIAM hose, ice machine, sling/swath, brace or special shoe, oversized zip-up or button up shirt, CPAP machine if staying overnight. 12. Do NOT wear jewelry, watches, or any piercings or metal for surgery- leave these valuables and money at home. 13. Do NOT wear contact lenses for surgery- glasses are okay if needed. 14. The anesthesiologist will talk with you the day of surgery and will ask you to sign a Consent Form. 15. Refrain from smoking or any type of tobacco use for at least 8 hours and marijuana for 24 hours prior to arrival for your surgery. 16. If a GREEN BLOOD band is given to you, please bring it with you for the day of surgery. 17. Notify your surgeon if you develop any illness before your surgery. 18. If you are staying overnight, please DO NOT BRING your home medications with you. 19. If you have any questions prior to surgery, please call the Preadmission Testing office at [phone], Mon.-Fri. 7 a.m.-3 p.m. Leave a voicemail if needed. Pre-Surgery Instructions: Medication Instructions HYDROcodone-acetaminophen (NORCO) 5-325 mg per tablet Stop taking 0 days prior to procedure ibuprofen (MOTRIN) 800 mg tablet Stop now norethindrone-e.estradioL-iron (FRANDY 24 FE) 1 mg-20 mcg (24)/75 mg (4) per tablet Check with prescribing doctor for instructions ondansetron ODT (ZOFRAN ODT) 4 mg disintegrating tablet Stop taking 0 days prior to procedure [facility] 08-17-2023 Miscellaneous Notes Preoperative Education Checklist- General Surgery date: 08/18/23 Surgery time: 9a Arrival time: 7a 1. Bring a photo ID and your insurance card with you the day of surgery. You will check in at the main lobby of the [facility]- registration desk is straight ahead as soon as you walk in. Tell them you are here for surgery. 2. If you have a Living Will/Durable Power of Concrete Block Molder for Health Care that is not on file here, please bring a copy the day of surgery. 3. Please shower/bathe the night before surgery with the provided soap or wipes. Do not shower the morning of surgery- you will do use wipes when you arrive here at the hospital before getting into your surgical gown. Do not shave the area of your procedure for 2 days prior to your surgery. 4. NO powder, lotion, perfume/cologne, aftershave, make-up, deodorant, or hair products after you have bathed. 5. NO nail pakistani/acrylic on at least one finger. If you are having a hand, wrist or foot surgery then all nail pakistani and artificial/acrylic nails must be removed from that hand or foot. 6. Avoid ALL Aspirin and non-steroidal anti-inflammatory drugs and certain vitamins (Ibuprofen, Advil, Aleve, Excedrin, Meloxicam, Celebrex, fish/krill oil, etc.) for 7 days prior to surgery as instructed by your surgeon and/or your prescribing doctor. Tylenol IS ALLOWED. If you are on Ticlid, Xarelto, Eliquis, Pradaxa, Plavix or Coumadin, please check with your prescribing doctor for instructions for when to stop them. 7. If you use an inhaler, continue to use it routinely. 8. Nothing to eat or drink (not even water, gum, mints, or hard candy!) AFTER midnight prior to your surgery. 9. Take only medications that you are instructed to on the morning of surgery with a TINY SIP OF WATER. 10. Choose a responsible adult that will be able to drive you home when you are discharged from your hospital stay for your surgery and can stay with you in your home for 24 hours after your procedure. You must NOT drive any vehicle or operate any machinery for 24 hours after surgery. 11. When you dress for your appointment, please wear loose fitting clothing that is appropriate to accommodate your surgical area procedure. BRING WITH YOU ANY DEVICES YOU MAY NEED: LIAM hose, ice machine, sling/swath, brace or special shoe, oversized zip-up or button up shirt, CPAP machine if staying overnight. 12. Do NOT wear jewelry, watches, or any piercings or metal for surgery- leave these valuables and money at home. 13. Do NOT wear contact lenses for surgery- glasses are okay if needed. 14. The anesthesiologist will talk with you the day of surgery and will ask you to sign a Consent Form. 15. Refrain from smoking or any type of tobacco use for at least 8 hours and marijuana for 24 hours prior to arrival for your surgery. 16. If a GREEN BLOOD band is given to you, please bring it with you for the day of surgery. 17. Notify your surgeon if you develop any illness before your surgery. 18. If you are staying overnight, please DO NOT BRING your home medications with you. 19. If you have any questions prior to surgery, please call the Preadmission Testing office at [phone], Mon.-Fri. 7 a.m.-3 p.m. Leave a voicemail if needed. Pre-Surgery Instructions: Medication Instructions HYDROcodone-acetaminophen (NORCO) 5-325 mg per tablet Stop taking 0 days prior to procedure ibuprofen (MOTRIN) 800 mg tablet Stop now norethindrone-e.estradioL-iron (FRANDY 24 FE) 1 mg-20 mcg (24)/75 mg (4) per tablet Check with prescribing doctor for instructions ondansetron ODT (ZOFRAN ODT) 4 mg disintegrating tablet Stop taking 0 days prior to procedure [facility] 08-17-[address] Baker patient needs to be schedule for surgery with her or Dr. Tay for a missed ab & retained products of conception. Sugar talked to Dr. Tay & Dr. 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 Dr. Tay would like a CBC & Type & Screen ordered for the patient and the patient to be NPO after midnight. Surgery scheduled with [facility] in surgery scheduling for [...] & screen drawn. documented [facility] this [facility] 08-17-2023 Telephone encounter Note Per Dr. Baker patient needs to be schedule for surgery with her or Dr. Tay for a missed ab & retained products of conception. Sugar talked to Dr. Tay & Dr. 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 Dr. Tay would like a CBC & Type & [...] to have the type & screen drawn. [facility] 08-17-2023 History of Presen t illness Narrative Ordered Type and Screen per Dr Tay documented in this encounter [facility] 08-17-2023 Miscellaneous Notes Addended by: DEVEN VALADEZ on: 08/17/2023 01:20 PM Modules accepted: Orders documented in this encounter [facility] 08-17-2023 Note Addended by: DEVEN VALADEZ on: 08/17/2023 01:20 PM Modules accepted: Orders [facility] 08-17-2023 History of Presen t illness Narrative Images from the original note were not included. Subjective Patient ID: Juanjose Geronimo is a pleasant 33 y.o. female who presents today via video visit per patient request. Patient was being followed for knee is in early June. She initially presented to the ER in [place] and was told she may still have some stuff in there . Ultrasound was performed this week. Patient was then able to keep her appointment on Monday to discuss results. She states that she is afebrile. She denies malodorous vaginal discharge. She is having light bleeding today which began yesterday. She denies passing large clots. She states she does have some cramping. She denies passing material that looks like products of conception. She states that she forgot to get her most recent quantitative HCG and CBC drawn, but she will go to town and have those done today. Chief Complaint: Spontaneous with possible retained products of conception Menstrual History: OB History 2 Para 2 Term 2 AB Living 2 SAB IAB Ectopic Multiple 0 Live Births 2 No LMP recorded. The following portions of the patient's history were reviewed and updated as appropriate: allergies, current medications, past family history, past medical history, past social history, past surgical history, problem list, and medication reconciliation was completed including current medication and post discharge medication. Review of Systems Constitutional: negative Respiratory: negative Cardiovascular: negative Gastrointestinal: negative Genitourinary: Possible retained products of conception after spontaneous in early June Neurological: negative Behavioral/Psych: negative Endocrine: negative Objective There were no vitals taken for this visit. General: alert, appears stated age, and cooperative patient appears stable and in no acute distress via video visit Ultrasound pelvic with transvaginal Order Status: Final result Study Result History: Follow-up spontaneous . Exam/Technique: Pelvic ultrasound [...] Nicanor Pablo MD on 08/14/2023 1:49 PM Study Result Narrative & Impression History: Follow-up spontaneous . Exam/Technique: Pelvic ultrasound [...] Nicanor Pablo MD on 08/14/2023 1:49 PM Imaging Ultrasound pelvic with transvaginal (Order: [id number]) - 08/14/2023 Result History Ultrasound pelvic with transvaginal (Order #[id number]) on 08/14/2023 - Order Result History Report PACS Images Show images for Ultrasound pelvic with transvaginal Percentile Graphs No episode available Ultrasound pelvic with transvaginal: Patient Communication Add Comments Add Notifications Signed by Signed Date/Time Phone Pager NICANOR PABLO 08/14/2023 13:49 Exam Information 3 Result Notes 1 Patient Communication Component Ref Range & Units 08/08/23 1542 08/01/23 1129 07/25/23 1514 07/18/23 1021 07/10/23 1128 06/28/23 1250 Hcg-beta, serum mIU/mL 17 24 CM 31 CM 39 CM 47 CM 147 CM Comment: NEW REFERENCE RANGE WEEKS (SINCE LMP) [...] necessarily diagnostic for trophoblastic or nontrophoblastic neoplasms. Assessment 1. Spontaneous with retained products of conception Plan 1. Advised patient that she does appear to still have retained products of conception, and she will need surgical management with a suction D&C. Risks versus benefits of surgery discussed. Risk of endometritis/infection with the retained products discussed. Patient advised that if she has a temperature of 100.4 F or higher, begins passing large clots, has severe pain, begins passing purulent or malodorous discharge all of these could be signs of infection and she should present immediately to the emergency room. Also discussed that if she is bleeding greater than 1 large pad in less than an hour and this happens 2 hours in a row she should also present for evaluation. Patient states that she will get her labs drawn today. Surgery is being contacted to add patient to the surgery schedule for a suction D and C at next available date and time. documented in this encounter [facility] 08-15-2023 History of Presen t illness Narrative HCG and CBC ordered documented in this encounter [facility] 08-09-2023 History of Presen t illness Narrative Order placed for hCG as we're trending after SAB. Pt. Notified via [facility] and has been seen in the office in the last week by Dr. Baker. RY Bradley 08/09/23 0846 documented in this encounter [facility] 08-03-2023 History of Presen t illness Narrative Prescription for Motrin placed documented in this encounter [facility] 08-03-2023 Miscellaneous Notes Pt states she was told at her appointment on that [facility] Pt went to [facility] today & there wasn't a RX for her to pick up attendant. Please advise. Thank you Unable to reach Pt. Advised Pt RX was sent. documented in this encounter [facility] 08-03-2023 Telephone encounter Note Pt states she was told at her appointment on that a RX for Motrin would be sent to [facility]. [facility] for her to pick up attendant. Please advise. Thank you [facility] 08-03-2023 Telephone encounter Note Unable to reach Pt. [facility] 08-03-2023 Telephone encounter Note Advised Pt RX was sent. [facility] 08-01-2023 History of Presen t illness Narrative Subjective Patient ID: Juanjose Geronimo is a pleasant 33 y.o. female who presents today for follow-up of spontaneous . Patient had an SAB in early June. She was seen and treated initially at [place] emergency room, and has been following here with Dr. Tay since. She is afebrile. She is eating, [...] some tissue still in her uterus at [facility]. This was 1 month ago. She has [...] products of conception. documented in this encounter [facility] 07-28-2023 Miscellaneous Notes Called and left for pt to call office back regarding her HCG that was done 07/25/23. Pt will need to have more drawn until they are less than 5 documented in this encounter [facility] 07-28-2023 Telephone encounter Note Called and left vm for pt to call office back regarding her HCG that was done 07/25/23. Pt will need to have more drawn until they are less than 5 [facility] 05-02-2021 Evaluation note Encounter Date Diagnosis [...] Patient care instructions given in writting by [facility] document. [employer] Other Evaluation note* Diagnosis S/P D&C (status post dilation and curettage) Other postprocedural status [facility] Diagnosis SAB (spontaneous )- Primary Unspecified spontaneous without mention of complication Low back pain, unspecified back pain laterality, unspecified chronicity, unspecified whether sciatica present [facility] Diagnosis Acute bilateral low back pain without sciatica- Primary [facility] Diagnosis SAB (spontaneous )- Primary Unspecified spontaneous without mention of complication [facility] Diagnosis SAB (spontaneous )- Primary Unspecified spontaneous without mention of complication [facility] Diagnosis SAB (spontaneous )- Primary Unspecified spontaneous without mention of complication Retained products of conception, early Preoperative examination Unspecified pre-operative examination [facility] Diagnosis Missed - Primary Pre-op testing Unspecified pre-operative examination [facility] N[facility]ative - Reported* Type Description Date Surgical History tonsillectomy and adenoidectomy Surgical History C section Surgical History [facility] [employer] Other InstructionsNot on filedocumented in this encounter [facility] filedocumented in this [facility] on filedocumented in this encounter [facility] filedocumented in [facility] filedocumented in this encounter [facility] Summary Purpose Family History No [...] and content) DATE CREATED AUTHOR 10/05/2021 [facility] DATE CREATED AUTHOR AUTHOR'S ORGANIZ ATION 08/20/2023 [facility] DATE CREATED AUTHOR AUTHOR'S ORGANIZ ATION 08/30/2023 [facility] EPIC DATE CREATED AUTHOR AUTHOR'S ORGANIZ ATION 06/21/2024 [facility] REASON FOR VISIT (unrecogniz ed section and content) Reason Comments ER Follow-up Reason Comments Follow-up SAB Care Teams (unrecognized sec tion and content) Picker/Puller Relationship Specialty Start Date End Date Shagufta Heredia DO [address] [place] [address] PCP - General Family Medicine 08/29/23 Picker/Puller Relationship Specialty Start Date End Date Shagufta Heredia DO [address] [place] [address] PCP - General Family Medicine 11/01/22 Picker/Puller Relationship Specialty Start Date End Date Shagufta Heredia DO [address] [place] [address] PCP - General Family Medicine 11/01/22 Picker/Puller Relationship Specialty Start Date End Date Shagufta Heredia DO [address] [place] [address] PCP - General Family Medicine 11/01/22 Picker/Puller Relationship Specialty Start Date End Date Shagufta Heredia DO [address] [place] [address] PCP - General Family Medicine 11/01/22 Picker/Puller Relationship Specialty Start Date End Date Shagufta Heredia DO [address] [place] [address] PCP - General Family Medicine 11/01/22 Picker/Puller Relationship Specialty Start Date End Date Shagufta Heredia DO [address] [place] [address] PCP - General Family Medicine 11/01/22 Picker/Puller Relationship Specialty Start Date End Date Shagufta Heredia DO [address] [place] [address] PCP - General Family Medicine 11/01/22 FOR [...] BE BASED ON THE PRIMARY CLINICAL RECORDS. [employer] provides no warranty or guarantee of the accuracy or completeness of information in this document.
[2024-09-21 10:08] LABS: Age Gdln ACOG Testing Note (.); HPV Aptima Negative (Negative); IGP, Aptima HPV, rfx 16/18,45 Note (.)
== END 2024-09-17 19:38 | disposition home or self-care (01) ==
LOC: LAB 19:37
PROVIDERS: Visit Provider Physician Assistant
DX: Z01.419 Encounter for gynecological examination (general) (routine) without abnormal findings (principal)
CPT/HCPCS: 87624; 88175

== ENCOUNTER 2024-10-31 12:22 | Emergency (ER) | payer OTHER, SELFPAY ==
[2024-10-31 12:28] VITALS: BP 117/77; PULSE 71; TEMP 36.8; O2SAT 100; BMI 32.9
--- OUTSIDE RECORDS SUMMARY | 2024-10-31 12:33 | XMS_ITS | CCD ---
Author Organization [facility] Care Team Providers Care Lobster Catcher Name Role Phone REQUEST, DR NONE LISTED Primary Care Unavaila juventino ALDANA, DR ZACK Do Admitting Unavailable DAQUANCHERICKA JONES Consulting Unavailable JOVAN, DR ZACK Do Attending Unavailable JUANITA WHEELER Consulting Unavailable Sheryl Silva Unavailable STACIA BAKER Attending Unavailable RUMSCHLAG, SHAGUFTA K Referring Unavailable RUMSCHLAG, SHAGUFTA K Primary Care Unavailable STACIA BAKER Attending Unavailable RUMSCHLAG, SHAGUFTA K Referring Unavailable RUMSCHLAG, SHAGUFTA K Primary Care Unavailable Rumschlag DO, Shagufta Primary Care Provider [...] Care Unavailable ERICA, LAUREN L Referring Unavailable REICA, LAUREN L Admitting Unavailable ERICA, LAUREN L Attending Unavailable RUMSCHLAG, SHAGUFTA K Primary Care Unavailable RAIN BOX Attending Unavailable SERVICES, [facility] Primary Care Unava ilable Shagufta Heredia DO Primary Care Provider [phone] YUMI BALLARD Attending Unavailable Allergies Allergy Classification Reported Allergen(s) Allergy Type Date of Onset Reaction(s) Facility (19 sources) Amoxicillin; Translations: [AMOXICILLIN] Drug Allergy anaphylaxis, [...] Ethinyl Estradiol / Ferrous fumarate / Norethindrone (18 sources) Estrogen Start: 09-17-2024 End: 09-17-2025 norethindrone-eth inyl estradiol (Frandy Fe 20) 1-20 MG-MCG tablet Indications: S/P D&C (status post dilation and curettage) Take 1 tablet by mouth Daily 28 tablet 12 09/17/2024 09/17/2025 Active Start: 08-28-2024 End: 09-17-2024 norethindrone-ethinyl estrad iol (Frandy Fe 08/12) 1-20 MG-MCG tablet Indications: S/P D&C (status post dilation and curettage) Take 1 tablet by mouth Daily 28 tablet 08/28/2024 09/17/2024 Discontinued (Reorder) Start: 08-28-2024 End: 08-28-2025 norethindrone-ethinyl estrad iol (Fradny Fe 08/12) 1-20 MG-MCG tablet Indications: S/P D&C (status post dilation and curettage) Take 1 tablet by mouth Daily 28 tablet 08/28/2024 08/28/2025 Active Start: 08-29-2023 End: 08-28-2024 norethindrone-ethinyl estrad iol (Frandy Fe 08/12) 1-20 MG-MCG tablet Indications: [...] dose nasal spray (1 source) Corticosteroid Start: take 1 spray(s) nasal route once daily Fluticasone Propionate 50 MCG/ACT 1 spray in each nostril Nasally Once a day for 30 day(s) Apr, Active ibuprofen 800 mg oral tablet (15 sources) Nonsteroidal Anti-inflammatory Drug Start: take 1 tablet by mouth every eight hours as needed for pain ibuprofen 800 MG tablet Take 800 mg by mouth every 8 (eight) hours if needed for moderate pain 08/03/2023 Active methylergonovine maleate 0.2 mg oral tablet (1 source) Ergot Derivative Start: take 1 tablet by mouth every six hours methylergonovine (METHERGINE) 0.2 mg tablet Take 1 tablet (200 mcg total) by mouth every 6 (six) hours. 12 tablet 0 08/18/2023 Active ondansetron 4 mg disintegrating oral tablet (11 sources) Serotonin-3 Receptor Antagonist Start: 023 ondansetron [...] Test Name Value Interpretation Reference Range Facility IGP,APTIMA HPV,AGE GDLNon AGE GDLN ACOG TESTING Note . [facility] Comment on above: TESTS RESULT FLAG UN ITS REF RANGE LAB Clinician Provided Cytology Information Source.............Cervix;Endocervix No. of containers..01 ThinPrep Vial Age Algo ACOG Kate... 30-65 01 FLAG LEGEND: L-Low Normal,H-High Normal,LL-Alert Low,HH-Alert High <-Panic Low,>-Panic High,A-Abnormal,AA-Critical Abnormal Performed at: 01 =[address] [address] Briana Gill MD, HPV APTIMA Negative Negative [facility] Comment on above: This nucleic acid am plification test detects fourteen high- risk HPV types (16,18,31,33,35,39,45,51,52,56,58,59,66,68) without differentiation. Performed at: =[address] [id number] Brush Polisher: Briana Gill MD, Phone: [phone] Performed at: [address] [id number] Brush Polisher: Briana Gill MD, Phone: [phone] IGP, APTIMA HPV, RFX 16/18,45 Note . [facility] Comment on above: TESTS RESULT FLAG UN ITS REF RANGE LAB DIAGNOSIS: 02 NEGATIVE FOR INTRAEPITHELIAL LESION OR MALIGNANCY. Specimen adequacy: 02 Satisfactory for evaluation. Endocervical and/or squamous metaplastic cells (endocervical component) are present. Performed by: 02 Asiya Soriano Motor Pool Clerk . 02 Note: Note 02 The Pap smear is a screening test designed to aid in the detection of premalignant and malignant conditions of the uterine cervix. It is not a diagnostic procedure and should not be used as the sole means of detecting cervical cancer. Both false-positive and false-negative reports do occur. Test Methodology: Note 02 This liquid based ThinPrep(R) pap test was screened with the use of an image guided system. HPV Genotype Reflex Note 02 Criteria not met, HPV Genotype not performed. FLAG LEGEND: L-Low Normal,H-High Normal,LL-Alert Low,HH-Alert High <-Panic Low,>-Panic High,A-Abnormal,AA-Critical Abnormal Performed at: [address] [address] Briana Gill MD, BRUSH-SPATULA CERVIX ENDOCERVIX [facility] 024 Surgical Pathology Normal [facility] Comment on above: Result Comment: [employer] [facility] [address] [place] [address] Surgical Pathology Consultation Patient Name:JUANJOSE GERONIMO:1990 (Age: 33)Gender:FTaken:4Reported:4Physician(s):Lauren Tay M.D. ([phone])Copy To: Rec. #:[id number]: #[id number] Final Pathologic Diagnosis Products of conception: Abundant blood clot admixed with fragments of hemorrhagic and focally necrotic decidual tissue and secretory endometrium. Occasional immature chorionic villi identified. The findings are consistent with retained products of conception. Report Electronically Signed Out ao/4Aflory Benton MD Interpretation performed at [facility], [address] [place] [address], License number: [id number]. Clinical History Missed AB, retained products of conception. Gross Description Received in formalin labeled JUANPABLO, uterus Karyotype: No Aggregate measurement: 6.1 x 4.8 x 1.2 cm Placenta: No Decidua/Clot: 6.1 x 4.8 x 1.2 cm Gestational Sac: No Tissue: No Molar Tissue: No Cassettes: A-E decidua/clot (5, ss, [id number],m6) DM dm/08/18/2023O Specimen(s) Received Products of conception Fee Codes(s): 1; 86609 CBC AND AUTO DIFFon 08-17-19 ABSOLUTE BASOPHIL 0.0 X10E9/L Normal 0.0-0.2 [facility] Comment on above: Performed By: #### Judi PERRY CMP, #### [facility] ([id number]) [address], [address] [place] [address] ABSOLUTE NEUTROPHIL 3.6 X10E9/L Normal 1.5-6.6 [facility] Comment on above: Performed By: #### Judi PERRY CMP, #### [facility] ([id number]) [address], [address] [place] [address] Basophils/100 WBC (Bld) 0.4 % Normal [facility] Comment on above: Performed By: #### Judi PERRY CMP, #### [facility] ([id number]) [address], [address] [place] [address] Eosinophils (Bld) [#/Vol] 0.1 10*3/uL Normal 0.0-0.4 [facility] Comment on above: Performed By: #### Judi PERRY, CMP, #### [facility] ([id number]) [address], [address] [place] [address] Eosinophils/100 WBC (Bld) 1.8 % Normal [facility] Comment on above: Performed By: #### Judi BCA, CMP, #### [facility] ([id number]) [address] [address] [place] [address] Erythrocyte distribution width (RBC) [Ratio] 13.8 % Normal 11.5-15.0 [facility] Comment on above: Performed By: #### C ORLANDO CMP, #### [facility] ([id number]) [address] [address] [place] [address] Hematocrit (Bld) [Volume fraction] 37.7 % Normal 35-47 [facility] Comment on above: Performed By: #### Judi PERRY, CMP, #### [facility] ([id number]) [address] [address] [place] [address] Hemoglobin (Bld) [Mass/Vol] 12.5 g/dL Normal 11.7-15.5 [facility] Comment on above: Performed By: #### Judi PERRY CMP, #### [facility] ([id number]) [address] [address] [place] [address] Lymphocytes (Bld) [#/Vol] 2.3 10*3/uL Normal 1.0-3.5 [facility] Comment on above: Performed By: #### Judi PERRY, CMP, #### [facility] ([id number]) [address] [address] [place] [address] Lymphocytes/100 WBC (Bld) 35.7 % Normal [facility] Comment on above: Performed By: #### Judi PERRY, CMP, #### [facility] ([id number]) [address], [address] [place] [address] MCH (RBC) [Entitic mass] 29.9 pg Normal 27-34 [facility] Comment on above: Performed By: #### Judi BCA, CMP, #### [facility] ([id number]) [address], [address] [place] [address] MCHC (RBC) [Mass/Vol] 33.2 g/dL Normal 32-36 [facility] Comment on above: Performed By: #### Judi PERRY CMP, #### [facility] ([id number]) [address], [address] [place] [address] MCV (RBC) [Entitic vol] 90 fL Normal 80-100 [facility] Comment on above: Performed By: #### Judi PERRY CMP, #### [facility] ([id number]) [address], [facility] [address] [place] [address] Monocytes (Bld) [#/Vol] 0.4 10*3/uL Normal 0-0.9 [facility] Comment on above: Performed By: #### Judi PERRY CMP, #### [facility] ([id number]) [address], [address] [place] [address] Monocytes/100 WBC (Bld) 5.8 % Normal [facility] Comment on above: Performed By: #### Judi PERRY CMP, #### [facility] ([id number]) [address], [address] [place] [address] Neutrophils/100 WBC (Bld) 56.3 % Normal [facility] Comment on above: Performed By: #### Judi PERRY CMP, #### [facility] ([id number]) [address], [address] [place] [address] Platelet mean volume (Bld) [Entitic vol] 8.7 fL Normal 7-12 [facility] Comment on above: Performed By: #### Judi PERRY CMP, #### [facility] ([id number]) [address], [address] [place] [address] Platelets (Bld) [#/Vol] 244 10*3/uL Normal 150-450 [facility] Comment on above: Performed By: #### C BCA, CMP, #### [facility] ([id number]) [address], [facility] [address] [place] [address] RBC COUNT 4.18 X10E12/L Normal 3.80-5.20 [facility] Comment on above: Performed By: #### C BCA, CMP, 01179-8 #### [facility] ([id number]) [address], [address] [place] [address] WBC (Bld) [#/Vol] 6.5 10*3/uL Normal 4.0-11.0 [facility] Comment on above: Performed By: #### C BCA, CMP, #### [facility] ([id number]) [address], [address] [place] [address] COMPREHENSIVE METABOLIC PANE Cirilo 08-17-2023 Albumin [Mass/Vol] 4.5 g/dL Normal 3.2-5.3 [facility] Comment on above: Performed By: #### C BCA, CMP, #### [facility] ([id number]) [address], [address] [place] [address] ALP [Catalytic activity/Vol] 52 U/L Normal 39-130 [facility] Comment on above: Performed By: #### C BCA, CMP, #### [facility] ([id number]) [address], [address] [place] [address] ALT [Catalytic activity/Vol] 22 U/L Normal 0-31 [facility] Comment on above: Performed By: #### C BCA, CMP, #### [facility] ([id number]) [address], [address] [place] [address] Anion gap [Moles/Vol] 6 mmol/L Normal 5-15 [facility] Comment on above: Performed By: #### C BCA, CMP, #### [facility] ([id number]) [address], [address] [place] [address] AST [Catalytic activity/Vol] 14 U/L Normal 0-41 [facility] Comment on above: Performed By: #### C BCA, CMP, #### [facility] ([id number]) [address], [address] [place] [address] Bilirubin [Mass/Vol] 0.4 mg/dL Normal 0.3-1.2 [facility] Comment on above: Performed By: #### C BCA, CMP, #### [facility] ([id number]) [address], [address] [place] [address] Calcium [Mass/Vol] 8.8 mg/dL Normal 8.5-10.5 [facility] Comment on above: Performed By: #### C BCA, CMP, #### [facility] ([id number]) [address], [address] [place] [address] Chloride [Moles/Vol] 105 mmol/L Normal 98-109 [facility] Comment on above: Performed By: #### C BCA, CMP, #### [facility] ([id number]) [address], [address] [place] [address] CO2 [Moles/Vol] 27 mmol/L Normal 22-32 [facility] Comment on above: Performed By: #### C BCA, CMP, #### [facility] ([id number]) [address], [address] [place] [address] Creatinine [Mass/Vol] 0.74 mg/dL Normal 0.40-1.00 [facility] Comment on above: Result Comment: METH OD TRACEABLE TO IDMS STANDARD Performed By: #### C BCA, CMP, #### [facility] ([id number]) [address], [address] [place] [address] eGFR (CKD-EPI) NON-RACE DEPENDENT >90 Normal >59 [facility] Comment on above: Result Comment: Reported eGFR is based on the CKD-EPI 2020 equation that does not use a race coefficient. Performed By: #### C BCA, CMP, #### [facility] ([id number]) [address], [address] [place] [address] Glucose [Mass/Vol] 86 mg/dL Normal 65-99 [facility] Comment on above: Performed By: #### C BCA, CMP, #### [facility] ([id number]) [address] [address] [place] [address] Potassium [Moles/Vol] 4.4 mmol/L Normal 3.5-5.0 [facility] Comment on above: Performed By: #### C BCA, CMP, #### [facility] ([id number]) [address] [address] [place] [address] Protein [Mass/Vol] 7.2 g/dL Normal 6.0-8.0 [facility] Comment on above: Performed By: #### C BCA, CMP, #### [facility] ([id number]) [address] [address] [place] [address] Sodium [Moles/Vol] 138 mmol/L Normal 134-146 [facility] Comment on above: Performed By: #### C BCA, CMP, #### [facility] ([id number]) [address] [address] [place] [address] Urea nitrogen [Mass/Vol] 13 mg/dL Normal 5-23 [facility] Comment on above: Performed By: #### C BCA, CMP, #### [facility] ([id number]) [address] [facility], [address] [place] [address] Comprehensive metabolic pane cirilo 08-17-2023 Albumin [Mass/Vol] 4.5 g/dL 3.2 - 5.3 g/dL [facility] ALP [Catalytic activity/Vol] 52 U/L 39 - 130 U/L [facility] ALT No additional P-5'-P [Catalytic activity/Vol] 22 U/L 0 - 31 U/L [facility] Anion gap [Moles/Vol] 6 mmol/L 5 - 15 mmol/L [facility] AST [Catalytic activity/Vol] 14 U/L 0 - 41 U/L [facility] Bilirubin [Mass/Vol] 0.4 mg/dL 0.3 - 1.2 mg/dL [facility] Calcium [Mass/Vol] 8.8 mg/dL 8.5 - 10. 5 mg/dL [facility] Chloride [Moles/Vol] 105 mmol/L 98 - 109 mmol/L [facility] CO2 [Moles/Vol] 27 mmol/L 22 - 32 mmol/L [facility] Creatinine [Mass/Vol] 0.74 mg/dL 0.40 - 1.00 mg/dL [facility] Comment on above: METHOD TRACEABLE TO IDME STANDARD eGFR (CKD-EPI)non-race dependent - PINF [facility] Comment on above: Reported eGFR is based on the CKD-EPI 2020 equation that does not use a race coefficient. Glucose [Mass/Vol] 86 mg/dL 65 - 99 mg/dL [facility] Potassium [Moles/Vol] 4.4 mmol/L 3.5 - 5.0 mmol/L [facility] Protein [Mass/Vol] 7.2 g/dL 6.0 - 8.0 g/dL [facility] Sodium [Moles/Vol] 138 mmol/L 134 - 146 mmol/L [facility] Urea nitrogen [Mass/Vol] 13 mg/dL 5 - 23 mg/dL [facility] HCG.beta subunit IA 3rd IS Q non 08-17-2023 HCG.beta subunit Qn 12 m[IU]/mL Normal [facility] Comment on above: Result Comment: NEW REFERENCE [...] nontrophoblastic neoplasms. Performed By: #### C ORLANDO, [facility], [address]-5 #### [facility] ([id number]) [address], [address] [place] [address] Type and screen(includes ind irect vero)on 08-17-2023 [...] Pablo MD on 08/14/2023 1:49 PM Normal [facility] HCG.beta subunit IA 3rd IS Q non 08-08-2023 HCG.beta subunit Qn 17 m[IU]/mL Normal [facility] Comment on above: Result Comment: NEW REFERENCE [...] neoplasms. Performed By: #### 2 0415-6 #### [facility] ([id number]) [address] [place] [address] [address] [place] [address] HCG.beta subunit IA 3rd IS Q non 08-01-2023 HCG.beta subunit Qn 24 m[IU]/mL Normal [facility] Comment on above: Result Comment: NEW REFERENCE [...] neoplasms. Performed By: #### 2 0415-6 #### [facility] ([id number]) [address] [place] [address], [address] [place] [address] HCG.beta subunit IA 3rd IS Q non 07-25-2023 HCG.beta subunit Qn 31 m[IU]/mL Normal [facility] Comment on above: Result Comment: NEW REFERENCE [...] neoplasms. Performed By: #### 2 0415-6 #### [facility] ([id number]) [address] [place] [address], [address] [place] [address] HCG.beta subunit IA 3rd IS Q non 07-18-2023 HCG.beta subunit Qn 39 m[IU]/mL Normal [facility] Comment on above: Result Comment: NEW REFERENCE [...] neoplasms. Performed By: #### 2 0415-6 #### [facility] ([id number]) [address] [place] [address], [address] [place] [address] HCG.beta subunit IA 3rd IS Q non 07-10-2023 HCG.beta subunit Qn 47 m[IU]/mL Normal [facility] Comment on above: Result Comment: NEW REFERENCE [...] neoplasms. Performed By: #### 2 0415-6 #### [facility] ([id number]) [address] [facility], [address] [place] [address] COVID Quick Testingon 2020 Result Negative [facility] Other Quick Strepon 05-02-2021 S. pyogenes Org specific cx Ql (Throat) Negative [facility] Other Quick Strep [facility] Other Vital Signs Date Time Vital Sign Value Performing Clinician Facility 09-17-2024 13:18-0500 Body mass index (BMI) [Ratio] 36.49 kg/m2 Yumi BARNETT Work Phone: [facility] 09-17-2024 13:18-0500 Body weight 105.69 kg Yumi BARNETT Work Phone: [facility] 09-17-2024 13:18-0500 Diastolic blood pressure 64 mm[Hg] Yumi BARNETT Work Phone: [facility] 09-17-2024 13:18-0500 Systolic blood pressure 112 mm[Hg] Yumi BARNETT Work Phone: [facility] 08-29-2023 10:36-0500 Body height 170.2 cm Abhishek Inna DO Work Phone: [facility] 08-29-2023 10:36-0500 Body mass index (BMI) [Ratio] 31.23 kg/m2 Abhishek Inna DO Work Phone: [facility] 08-29-2023 10:36-0500 Body weight 90.45 kg Abhishek Inna DO Work Phone: [facility] 08-29-2023 10:36-0500 Diastolic blood pressure 60 mm[Hg] Abhishek Inna DO Work Phone: [facility] 08-29-2023 10:36-0500 Systolic blood pressure 104 mm[Hg] Abhishek Inna DO Work Phone: [facility] 08-01-2023 10:34-0500 Body mass index (BMI) [Ratio] 30.85 kg/m2 Stacia Baker DO Work Phone: [facility] [employer] [facility] 08-01-2023 10:34-0500 Body weight 89.36 kg Stacia Baker DO Work Phone: [facility] [employer] [facility] 08-01-2023 10:34-0500 Diastolic blood pressure 48 mm[Hg] Stacia Baker DO Work Phone: [facility] [employer] [facility] 08-01-2023 10:34-0500 Systolic blood pressure 100 mm[Hg] Stacia Baker DO Work Phone: [facility] [employer] [facility] 05-02-2021 12:00-0400 Body height 170.18 cm Sheryl Silva Other [facility] Other 05-02-2021 12:00-0400 Body mass index (BMI) [Ratio] 32.42 kg/m2 Sheryl Silva Other [facility] Other 05-02-2021 12:00-0400 Body temperature 97.5 [degF] Sheryl Silva Other [facility] Other 05-02-2021 12:00-0400 Body weight 93.9 kg Sheryl Silva Other [facility] Other 05-02-2021 12:00-0400 SaO2% (BldA) [Mass fraction] 99 % Sheryl Silva Other [facility] Other Encounters Encounter Date Encounter Type Care Provider Facility Start: 09-17-2024 End: 09-17-2024 Bamboo flowsheet Yumi BARNETT Work Phone: [facility] Start: 09-17-2024 End: 09-21-2024 Bamboo flowsheet Yumi BARNETT Work Phone: [facility] Start: 09-17-2024 End: 09-21-2024 Clinisync Result Encounter Yumi BARNETT Work Phone: [facility] External Department Unsolicited Start: 09-17-2024 End: 09-17-2024 Patient encounter procedure Yumi BARNETT Work Phone: [facility] Healthcare Start: 09-17-2024 End: 09-17-2024 Periodic preventive med est patient 18-39 yrs Yumi BARNETT Work Phone: [facility] Comment on above: Well woman exam with routine gynecological exam; S/P D&C (status post dilation and curettage) Start: 09-17-2024 End: 09-17-2024 ambulatory YUMI BALLARD Not Available Start: 06-18-2024 End: 06-18-2024 Emergency department patient visit [facility] Start: 08-29-2023 End: 08-29-2023 Office outpatient visit 15 minutes Abhishek Delatorrezio DO Work Phone: [facility] Comment on above: S/P D&C (status post dilation and curettage) Start: 08-18-2023 Telephone encounter Lauren ontiveros MD Work Phone: [facility] Start: 08-18-2023 End: 08-18-2023 Evaluation and management of inpatient [facility] Start: 08-18-2023 End: 08-18-2023 Evaluation and management of inpatient [facility] Start: 08-17-2023 End: 08-17-2023 ambulatory [facility] Pat Phone Call Provider 1 [facility] - Pre Admit Start: 08-17-2023 End: 08-17-2023 ambulatory [facility] Start: 08-17-2023 End: 08-17-2023 ambulatory STACIA BAKER [facility] Comment on above: Missed (Anabelle emanuel Dx); Pre-op testing Start: 08-17-2023 Patient encounter status Deven Tsang gisela [facility] Start: 08-17-2023 Telephone encounter Susannah dwyer [facility] Start: 08-17-2023 End: 08-17-2023 ambulatory [facility] Start: 08-17-2023 Encounter for other preprocedural examination [facility] Start: 08-17-2023 End: 08-17-2023 Office outpatient visit 15 minutes Stacia Baker DO Work Phone: [facility] Comment on above: SAB (spontaneous abo rtion) (Primary Dx); Retained products of conception, early ; Preoperative examination Start: 08-17-2023 End: 08-17-2023 Preprocedural examination done Stacia Baker DO Work Phone: [facility] Start: 08-15-2023 Orders Only Stacia Baker DO Work Phone: [facility] Comment on above: SAB (spontaneous abo rtion) (Primary Dx) Start: 08-14-2023 End: 08-14-2023 [facility] Start: 08-09-2023 Orders Only Shahanalion Muro [employer] Work Phone: [facility] Comment on above: SAB (spontaneous abo rtion) (Primary Dx) Start: 08-08-2023 End: 08-08-2023 [facility] Start: 08-03-2023 Orders Only Stacia Baker DO Work Phone: [facility] Comment on above: Acute bilateral low back pain without sciatica (Primary Dx) Start: 08-01-2023 End: 08-01-[address] [facility] Start: 08-01-2023 End: 08-01-2023 ambulatory [facility] Start: 08-01-2023 End: 08-01-2023 Office outpatient visit 15 minutes Stacia Baker DO Work Phone: [facility] Comment on above: SAB (spontaneous abo rtion) (Primary Dx); Low back pain, unspecified back pain laterality, unspecified chronicity, unspecified whether sciatica present Start: 07-28-2023 Telephone encounter Deven Lau MA [facility] Start: 07-25-2023 End: 07-25-2023 ambulatory [facility] Start: 07-18-2023 End: 07-18-2023 ambulatory [facility] Start: 07-18-2023 End: 07-19-2023 [facility] Start: 07-10-2023 End: 07-10-2023 ambulatory [facility] Start: 05-02-2021 Office outpatient vi sit 15 minutes Sheryl Silva [facility] Start: 02-22-2020 End: 02-23-[address] NONE LISTED REQUEST Facility: Procedures Date Procedure Procedure Detail Performing Clinician Start: 09-17-2024 IGP,APTIMA HPV,AGE GDLN Yumi BARNETT Work Phone: Start: 08-17-2023 Antibody screen Deven Valadez [facility] Start: 08-01-2023 Follow-up visit Follow-up STACIA L OLIVIA Start: 04-12-2023 Adult depression screening assessment Deven Valadez [employer] Start: 03-02-2020 Microscopic observat ion [Identifier] in Cervix by Cyto stain Deven Valadez [employer] Start: 07-31-2019 H/O: section S/P s ection Deven Valadez [employer] H/O: surgery S/P D&C (status post dilation and curettage) Abhishek Keith DO Work Phone: H/O: surgery S/P D&C (status post dilation and curettage) Yumi BARNETT Work Phone: Plan of Treatment Date Care Activity Detail Author Start: 09-17-2024 End: 09-17-2024 Patient encounter procedure 09/17/2024 1:00 PM EST Office Visit [facility] [address] [place] [id number] Yumi Ballard PA [address] [place] [address] Arrived [facility] Comment on above: Arrived Start: 08-18-2024 Adult BMI Screening Adult BMI Screen ing [facility] Start: 08-18-2024 Tobacco Screening Tobacco Screening [facility] Start: 08-17-2024 Tobacco Screening Tobacco Screening [facility] Start: 08-01-2024 Adult BMI Screening Adult BMI Screen ing [facility] Start: 08-01-2024 Tobacco Screening Tobacco Screening [facility] Start: 07-04-2024 Adult BMI Screening Adult BMI Screen ing [facility] Start: 07-04-2024 Tobacco Screening Tobacco Screening [facility] Start: 04-12-2024 Depression Screening Depression Scre ening [facility] Start: 08-29-2023 End: 08-29-2024 US Pelvis transvaginal US pelvis transvaginal Imaging Routine S/P D&C (status post dilation and curettage) Expected: 08/29/2023 (Approximate), Expires: 08/29/2024 [facility] Work Phone: Comment on above: Expected: 08/29/2023 (Approximate), Expires: 08/29/2024 Start: 08-18-2023 End: 08-18-2023 Admission to same day surgery center 08/18/2023 9:00 AM EST - 08/18/2023 10:00 AM EST Surgery [facility] [address] [place] [id number] Lauren Tay MD [address] [facility] [place], [place] [id number] DILATION CURETTAGE SUCTION [59653 (CPT )] [facility] Comment on above: DILATION CURETTAGE S UCTION [09373 (CPT )] Start: 08-18-2023 End: 08-18-2023 Anesthesia consultation 08/18/2023 9:00 AM EST Anesthesia Event [facility] [address] [place] [phone] Rain Box MD [address] [place] [address] [facility] Start: 08-18-2023 End: 08-18-2023 Dilation & curettage dx&/ther nonobstetric [facility] Start: 08-18-2023 Subsequent hospital visit by physician 08/18/2023 9:00 AM EST Hospital Encounter [facility] [address] [place] [address] Lauren Tay MD [address] [place] [address] [facility] Start: 08-17-2023 End: 08-17-2023 Telemedicine consultation with patient 08/17/2023 10:00 AM EST Telemedicine [facility] [address] [place] [phone] Stacia Baker DO [address] [place] [address] [facility] Start: 08-16-2023 End: 08-09-2024 hCG, quantitative, hCG, quantitative, Lab Routine SAB (spontaneous ) Expected: 08/16/2023 (Approximate), Expires: 08/09/2024 [facility] Work Phone: Comment on above: Expected: 08/16/2023 (Approximate), Expires: 08/09/2024 Start: 08-15-2023 End: 08-15-2023 Patient encounter procedure 08/15/2023 1:30 PM EST Office Visit [facility] [address] [place] [address] Stacia Baker DO [address] [place] [address] [facility] Start: 08-01-2023 End: [...] procedure 08/01/2023 10:30 AM EST Office Visit [facility] [address] [place] [address] Stacia Baker DO [address] [place] [address] [facility] Start: 04-11-2023 Adult BMI Follow Up Plan Adult BMI Follow Up Plan [facility] Start: 03-24-2023 Influenza vaccination Influenza Vacc ine [facility] Start: 03-02-2023 Screening for malign ant neoplasm of cervix Pap Smear [facility] Start: 2009 DTaP,Tdap and Td Vaccines (1 - Tdap) DTaP,Tdap and Td Vaccines (1 - Tdap) [facility] Start: 1990 Tobacco Counseling Tobacco Counselin g [facility] End: 08-15-2024 CBC W Auto Differential panel - Blood CBC auto differential Lab Routine SAB (spontaneous ) 1 Occurrences starting 08/15/2023 until 08/15/2024 [facility] Work Phone: Comment on above: 1 Occurrences starti ng 08/15/2023 until 08/15/2024 Cytology Cervical or vaginal smear or scraping study Pap Smear Pathology and Cytology Routine Well woman exam with routine gynecological exam Ordered: 09/17/2024 [employer] Work Phone: Comment on above: Ordered: 09/17/2024 End: 08-15-2024 hCG, quantitative, hCG, quantitative, Lab Routine SAB (spontaneous ) 1 Occurrences starting 08/15/2023 until 08/15/2024 [facility] Comment on above: 1 Occurrences starti ng 08/15/2023 until 08/15/2024 Human papilloma viru s DNA [Presence] in Unspecified specimen by Probe with amplification HPV DNA probe, amplified Microbiology Routine Well woman exam with routine gynecological exam Ordered: 09/17/2024 [facility] Comment on above: Ordered: 09/17/2024 Immunizations Immunization Date Immunization Notes Care Provider Fa cility NEGATED: Highlighted row has not occurred!07-30-2019 measles, mumps and rubella virus vaccine Deven Valadez [facility] Comment on above: Deferred: - IMMUNE Deferred: Other - IM MUNE NEGATED: Highlighted row has not occurred!07-30-2019 tetanus toxoid, reduced diphtheria toxoid, and acellular pertussis vaccine, adsorbed Deven Valadez [facility] Payers Date Payer Category Payer Medicaid [employer] [place] [id number] 2022-Present [address] [place] [address] [id number] 2022 Private Health Insurance [id number] 2022 Private Health Insurance [id number] 1990 Unknown [id number] 2.16.840.1.749233.3.579.2. 593 1990 Unknown [id number] 2.16.840.1.855562.3.579.2. 1286 1990 Unknown [id number] 2.16.840.1.778734.3.579.2. 1286 1990 Unknown [id number] 2.16.840.1.518193.3.579.2. 1286 1990 Unknown [id number] 2.16.840.1.587123.3.579.2. 1285 1990 Unknown [id number] 2.16.840.1.815384.3.579.2. 1286 1990 Unknown [id number] 2.16.840.1.473605.3.579.2. 1286 1990 Unknown [id number] 2.16.840.1.622719.3.579.2. 1286 1990 Unknown [id number] 2.16.840.1.804821.3.579.2. 128 1990 Unknown [id number] 2.16.840.1.936477.3.579.2. 1285 1990 Unknown [id number] 2.16.840.1.249843.3.579.2. 1285 1990 Unknown [id number] 2.16.840.1.497842.3.579.2. 1285 1990 Unknown [id number] 2.16.840.1.640440.3.579.2. 1285 1990 Unknown [id number] 2.16.840.1.863295.3.579.2. 1285 1990 Unknown [id number] 2.16.840.1.734033.3.579.2. 1285 1990 Unknown [id number] 2.16.840.1.494447.3.579.2. 1285 1990 Unknown [id number] 2.16.840.1.879628.3.579.2. 1285 1990 Unknown [id number] 2.16.840.1.815973.3.579.2. 1259 1959 Private Health Insurance [id number] Social History Date Type Detail Facility Start: 09-03-2020 End: 03-12-2023 Sex Assigned At [facility] Start: 04-23-2012 End: 03-12-2023 Tobacco smoking status [facility] Smokes tobacco daily [facility] Start: 04-23-2012 End: 06-23-2023 History of tobacco use Cigarette Smoker [facility] Start: 09-03-2020 End: 03-12-2023 Cigarettes smoked current (pack per day) - Reported 0.3 [facility] Start: 08-29-2023 Alcohol intake Current drinker of alcohol (finding) [facility] Start: 03-12-2023 Alcohol Comment 1-2 drinks less than monthly in the past year, Caffeine intake: 2-3 cups per day coffee [facility] Start: 1990 Sex Assigned At Not on file [facility] Start: 03-30-2021 End: 08-01-2023 Tobacco use and exposure Smokeless tobacco non-user [facility] Start: 07-04-2023 End: 08-18-2023 Alcohol intake Ex-drinker (finding) [facility] Adolescent depressio n screening assessment 5 [facility] The thought of gina kingston myself has occurred to me Never [facility] Start: 1990 Sex Assigned At Female [facility] Start: 07-26-2021 Gender identity Identifies as female gender (finding) [facility] Start: 07-26-2021 Sexual orientation Heterosexual (finding) [facility] Start: 08-01-2023 Tobacco smoking status NHIS Ex-smoker [facility] End: 06-23-2023 History of tobacco use Current smoker [facility] Clinical Notes 05-02-2021 to 09-17-2024 ERICKA Bell - 09/17/2024 1:00 PM Kecia Keith DO - 08/29/2023 10:50 AM ESTTelephone Encounter - Kaylyn Rodríguez - 08/18/2023 12:48 PM Emmanuel Valadez CMA - 08/17/2023 12:58 PM EST Note Date & Type Note Facility 09-17-2024 History of Presen t illness Narrative Reason for Appointment: Patient ID: Juanjose Geronimo is a 34 y.o. female who presents for Well Women Visit Patient presents today for Annual Exam. MEDICATIONS Current Outpatient Medications Medication Instructions ibuprofen 800 mg, Oral, Every 8 hours PRN norethindrone-ethinyl estradiol (Frandy Fe 08/12) 1-20 MG-MCG tablet 1 tablet, Oral, Daily ALLERGIES Allergies Allergen Reactions Amoxicillin Hives and Rash PROBLEMS Active Ambulatory Problems Diagnosis Date Noted No Active Ambulatory Problems Resolved Ambulatory Problems Diagnosis Date Noted No Resolved Ambulatory Problems No Additional Past Medical History HISTORY PAST MEDICAL HISTORY SOCIAL HISTORY No past medical history on file. Social History Tobacco Use Smoking status: Every Day Current packs/day: 0.25 Average packs/day: 0.3 packs/day for 12.4 years (3.1 ttl pk-yrs) Types: Cigarettes Start date: 04/23/2012 Smokeless tobacco: Not on file Substance Use Topics Alcohol use: Yes Comment: 1-2 drinks less than monthly in the past year, Caffeine intake: 2-3 cups per day coffee Drug use: Never FAMILY HISTORY Family History Problem Relation Name Age of Onset Dwarfism Mother Anxiety disorder Mother Depression Mother Heart disease Maternal Grandmother Other (tumors) Maternal Grandmother SURGICAL HISTORY Past Surgical History: Procedure Laterality Date ADENOIDECTOMY 2007 SECTION, LOW TRANSVERSE 07/29/2021 DILATION AND CURETTAGE OF UTERUS 08/18/2023 GALLBLADDER SURGERY 2016 TONSILLECTOMY 2007 REVIEW OF SYSTEMS Review of Systems: Review of Systems Constitutional: Negative. HENT: Negative. Eyes: Negative. Respiratory: Negative. Cardiovascular: Negative. Gastrointestinal: Negative. Genitourinary: Negative. Musculoskeletal: Negative. Skin: Negative. Neurological: Negative. All other systems reviewed and are negative. Hematological: Negative. Endocrine: Negative. Allergic/Immunologic: Negative. OBJECTIVE Objective: Physical Exam Constitutional: Appearance: Normal appearance. She is well-developed. Genitourinary: Vulva normal. Right Adnexa: not tender and no mass present. Left Adnexa: not tender and no mass present. No cervical discharge. Breasts: Breasts are soft. Right: Normal. Left: Normal. HENT: Head: Normocephalic. Nose: Nose normal. Mouth/Throat: Mouth: Mucous membranes are moist. Cardiovascular: Rate and Rhythm: Normal rate and regular rhythm. Pulmonary: Effort: Pulmonary effort is normal. Breath sounds: Normal breath sounds. Abdominal: General: Bowel sounds are normal. There is no distension. Palpations: Abdomen is soft. Tenderness: There is no abdominal tenderness. There is no guarding or rebound. Musculoskeletal: General: No swelling. Normal range of motion. Cervical back: Normal range of motion. Right lower leg: No edema. Left lower leg: No edema. Neurological: General: No focal deficit present. Mental Status: She is alert and oriented to person, place, and time. Skin: General: Skin is warm and dry. Psychiatric: Mood and Affect: Mood normal. Behavior: Behavior normal. Vitals and nursing note reviewed. Exam conducted with a hydropress operator present. Vitals: Estimated body mass index is 31.23 kg/m as calculated from the following: Height as of 08/29/23: 5' 7 . Weight as of 08/29/23: 199 lb 6.4 oz. BP: No LMP recorded. ASSESSMENT & PLAN ICD-10-CM 1. Well woman exam with routine gynecological exam Z01.419 Annual Exam: Patient presents today for an annual exam. Patient states she is doing well and has no complaints. Pap was obtained without difficulty. No orders of the defined types were placed in this encounter. Follow Up: Patient is to return in one year for annual unless needed otherwise. Documented by Sadie Liu MA on behalf of: ERICKA Bell documented in this encounter [facility] 08-29-2023 History of Presen t illness Narrative [...] nursing note reviewed. Exam conducted with a hydropress operator present. Vitals: Estimated body mass index is [...] by Angelia Skelton LPN on behalf of: Abhishek Keith DO documented in this encounter [facility] 08-18-2023 Miscellaneous Notes Adri at [facility] states they do not have the generic methergine prescribed for Pt. Adri states she called 2 other Pharmacies in [facility] & they do not have it either. Please send alternate medication RX to [facility]. Advised Adri at [facility] Pt would be called when new RX is sent. IS NONE DISREGARD AT THIS POINT THANK YOU Pt left on 08/18 at 4:22pm, but phones were not forwarded yet. Have tried calling Pt 3 times this morning, but no answer and no VM set up. Pt called in stating that she still was unable to picker tender medication from Pharmacy and wanted to know [...] to this information. documented in this encounter [facility] 08-18-2023 Telephone encounter Note Adri at [facility] states they do not have the generic methergine prescribed for Pt. Adri states she called 2 other Pharmacies in town & they do not have it either. Please send alternate medication RX to [facility]. Advised Adri at [facility] Pt would be called when new RX is sent. [facility] Telephone encounter Note IS NONE DISREGARD AT THIS POINT THANK YOU [facility] 08-18-2023 Telephone encounter Note Pt left VM on 08/18 at 4:22pm, but phones were not forwarded yet. Have tried calling Pt 3 times this morning, but no answer and no VM set up. [facility] 08-18-[facility]23 Telephone encounter Note Pt called in stating that she still was unable to picker tender medication from Pharmacy and wanted to know [...] evaluation. Pt was agreeable to this information. [facility] 08-17-2023 Nurse Note Preoperative Education Checklist- General Surgery date: 08/18/23 Surgery time: 9a Arrival time: 7a 1. Bring a photo ID and your insurance card with you the day of surgery. You will check in at the main lobby of the [facility]- registration desk is straight ahead as soon as you walk in. Tell them you are here for surgery. 2. If you have a Living Will/Durable Power of Electrical Supervisor for Health Care that is not on [...] after you have bathed. 5. NO nail canadian/acrylic on at least one finger. If you are having a hand, wrist or foot surgery then all nail canadian and artificial/acrylic nails must be removed from [...] please call the Preadmission Testing office at [phone], Mon.-Fri. 7 a.m.-3 p.m. Leave a voicemail [...] Stop taking 0 days prior to procedure [facility] 08-17-2023 Miscellaneous Notes Preoperative Education Checklist- General Surgery date: 08/18/23 Surgery time: 9a Arrival time: 7a 1. Bring a photo ID and your insurance card with you the day of surgery. You will check in at the main lobby of the [facility]- registration desk is straight ahead as soon as you walk in. Tell them you are here for surgery. 2. If you have a Living Will/Durable Power of Electrical Supervisor for Health Care that is not on [...] after you have bathed. 5. NO nail canadian/acrylic on at least one finger. If you are having a hand, wrist or foot surgery then all nail canadian and artificial/acrylic nails must be removed from [...] please call the Preadmission Testing office at [phone], Mon.-Fri. 7 a.m.-3 p.m. Leave a voicemail [...] prior to procedure documented in this encounter [facility] 08-17-[address] Baker patient needs to be schedule for surgery with her or Dr. Tay for a missed ab & retained products of conception. Sugar talked to Dr. Tay & Dr. 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 Dr. Tay would like a CBC & [...] & screen drawn. documented in this encounter [facility] 08-17-2023 Telephone encounter Note Per Dr. Baker patient needs to be schedule for surgery with her or Dr. Tay for a missed ab & retained products of conception. Sugar talked to Dr. Tay & Dr. 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 Dr. Tay would like a CBC & [...] to have the type & screen drawn. [facility] 08-17-2023 History of Presen t illness Narrative Ordered Type and Screen per Dr Tay documented in this encounter [facility] 08-17-2023 Miscellaneous Notes Addended by: DEVEN VALADEZ on: 08/17/2023 01:20 PM Modules accepted: Orders documented in this encounter [facility] 08-17-2023 Note Addended by: DEVEN VALADEZ on: 08/17/2023 01:20 PM Modules accepted: Orders [facility] 08-17-2023 History of Presen t illness Narrative Images from the original note were not included. Subjective Patient ID: Juanjose Geronimo is a pleasant 33 y.o. female who presents today via video visit per patient request. Patient was being followed for knee is in early June. She initially presented to the ER in [place] and was told she may still have [...] PM Imaging Ultrasound pelvic with transvaginal (Order: [id number]) - 08/14/2023 Result History Ultrasound pelvic with transvaginal (Order #[id number]) on 08/14/2023 - Order Result History Report [...] date and time. documented in this encounter [facility] 08-15-2023 History of Presen t illness Narrative HCG and CBC ordered documented in this encounter [facility] 08-09-2023 History of Presen t illness Narrative Order placed for hCG as we're trending after SAB. Pt. Notified via [facility] and has been seen in the office in the last week by Dr. Baker. RY Bradley 08/09/23 0846 documented in this encounter [facility] 08-03-2023 History of Presen t illness Narrative Prescription for Motrin placed documented in this encounter [facility] 08-03-2023 Miscellaneous Notes Pt states she was told at her appointment on that a RX for Motrin would be sent to [facility]. Pt went to [facility] today & there wasn't a RX for her to picker tender. Please advise. Thank you Unable to reach Pt. Advised Pt RX was sent. documented in this encounter [facility] 08-03-2023 Telephone encounter Note Pt states she was told at her appointment on that a RX for Mot[facility]. [facility] today & there wasn't a RX for her to picker tender. Please advise. Thank you [facility] 08-03-2023 Telephone encounter Note Unable to reach Pt. [facility] 08-03-2023 Telephone encounter Note Advised Pt RX was sent. [facility] 08-01-2023 History of Presen t illness Narrative Subjective Patient ID: Juanjose Geronimo is a pleasant 33 y.o. female who presents today for follow-up of spontaneous . Patient had an SAB in early June. She was seen and treated initially at [place] emergency room, and has been following here [...] some tissue still in her uterus at [place]. This was 1 month ago. She has [...] products of conception. documented in this encounter [facility] 07-28-2023 Miscellaneous Notes Called and left vm for pt to call office back regarding her HCG that was done 07/25/23. Pt will need to have more drawn until they are less than 5 documented in this encounter [facility] 07-28-2023 Telephone encounter Note Called and left vm for pt to call office back regarding her HCG that was done 07/25/23. Pt will need to have more drawn until they are less than 5 [facility] 05-02-2021 Evaluation note Encounter Date [...] Patient care instructions given in writting by [facility] document. [facility] Other Evaluation note* Diagnosis S/P D&C (status post dilation and curettage) Other postprocedural status documented in this encounter [facility] Healthcare[facility]* Diagnosis SAB (spontaneous )- Primary Unspecified spontaneous without mention of complication Low back pain, unspecified back pain laterality, unspecified chronicity, unspecified whether sciatica present documented [facility] Diagnosis Acute bilateral low back pain without sciatica- Primary documented in this encounter [facility]* Diagnosis SAB (spontaneous )- Primary Unspecified spontaneous without mention of complication [facility] Diagnosis SAB (spontaneous )- Primary Unspecified spontaneous without mention of complication [facility] Diagnosis SAB (spontaneous )- Primary Unspecified spontaneous without mention of complication Retained products of conception, early Preoperative examination Unspecified pre-operative examination [facility] Diagnosis Missed - Primary Pre-op testing Unspecified pre-operative examination [facility] Diagnosis Well woman exam with routine gynecological exam Routine gynecological examination S/P D&C (status post dilation and curettage) Other postprocedural status [facility] - [facility]* Type Description Date Surgical History tonsillectomy and adenoidectomy Surgical History C section Surgical History cholecystectomy Zample Other InstructionsNot on filedocumented in this encounter [facility] filed[facility]ed in [facility] encounter [facility] Summary Purpose Family History No Family [...] DATE CREATED AUTHOR AUTHOR'S ORGANIZ ATION 08/20/2023 [facility] DATE CREATED AUTHOR AUTHOR'S ORGANIZ ATION 06/21/2024 [facility] DATE CREATED AUTHOR AUTHOR'S ORGANIZ ATION 09/19/2024 [facility] EPIC REASON FOR VISIT (unrecogniz ed section and content) Reason Comments ER Follow-up Reason Comments Follow-up SAB Reason Comments [facility] Visit Care Teams (unrecognized sec tion and content) Lobster Catcher Relationship Specialty Start Date End Date Shagufta Heredia DO [address] [place], [place] [id number] PCP - General Family Medicine 08/29/23 Lobster Catcher Relationship Specialty Start Date End Date Shagufta Heredia DO [address] [place] [id number] PCP - General Family Medicine 11/01/22 Lobster Catcher Relationship Specialty Start Date End Date Shagufta Heredia DO [address] [place] [id number] PCP - General Family Medicine 11/01/22 Lobster Catcher Relationship Specialty Start Date End Date Shagufta Heredia DO [address] [place] [id number] PCP - General Family Medicine 11/01/22 Lobster Catcher Relationship Specialty Start Date End Date Shagufta Heredia DO [address] [place] [address] PCP - General Family Medicine 11/01/22 Lobster Catcher Relationship Specialty Start Date End Date Shagufta Heredia DO [address] [place] [address] PCP - General Family Medicine 11/01/22 Lobster Catcher Relationship Specialty Start Date End Date Shagufta Heredia DO [address] [place] [address] PCP - General Family Medicine 11/01/22 Lobster Catcher Relationship Specialty Start Date End Date Shagufta Heredia DO [address] [place] [address] PCP - General Family Medicine 11/01/22 Lobster Catcher Relationship Specialty Start Date End Date Shagufta Heredia DO [address] [place] [address] PCP - General Family Medicine 08/29/23 Lobster Catcher Relationship Specialty Start Date End Date Shagufta Heredia DO [address] [place] [address] PCP - General Family Medicine 08/29/23 Lobster Catcher Relationship Specialty Start Date End Date Shagufta Heredia DO [address] [place] [address] PCP - General Family Medicine 08/29/23 FOR [...] BE BASED ON THE PRIMARY CLINICAL RECORDS. [facility] provides no warranty or guarantee of the accuracy or completeness of information in this document.
--- NOTE | 2024-10-31 12:37 | ED.GENADUL1 ---
HPI HPI - General Adult General Chief complaint: Dental/Oral Stated complaint: DENTAL PAIN Time Seen by Provider: 10/31/24 12:30 Source: patient Mode of arrival: walk-in Limitations: no limitations History of Present Illness HPI narrative: 34-year-old female presents for pain to her right upper dentition. She is scheduled to have multiple teeth removed a week from today. This is an ongoing issue and she has already had one fourth of her teeth removed. She states they are doing one fourth at a time. She ran out of ibuprofen. No fever or difficulty breathing or swallowing. The pain is moderate to severe and continuous. Related Data Home Medications ?Medication ?Instructions ?Recorded ?Confirmed norethindrone 1 mg-ethinyl 1 tab PO DAILY 12/21/23 08/31/24 estradiol 20 mcg (21)-iron 75 mg (7) tablet (Brooke Fe 08/12 ()) Previous Rx's ?Medication ?Instructions ?Recorded yvaacynxivvlboe-lcwmusagepfbsgi-HH 10 ml PO Q6H PRN cold symptoms 08/31/24 2 mg-30 mg-10 mg/5 mL oral syrup #200 mL (Bromfed DM) ondansetron 4 mg disintegrating 4 mg PO Q6H PRN nausea and 08/31/24 tablet vomiting #12 tabs clindamycin HCl 300 mg capsule 300 mg PO Q6H 10 days #40 caps 10/31/24 ibuprofen 800 mg tablet 800 mg PO Q8H PRN pain #20 tabs 10/31/24 Allergies Allergy/AdvReac Type Severity Reaction Status Date / Time amoxicillin AdvReac Mild Rash Verified 10/31/24 12:28 Opioid HPI Opioid Management Most Recent Opioid Data: No Data to Display Review of Systems ROS Narrative A ten point review of systems is negative except as noted above. PFSH PFSH Social History Smoking status: Current every day smoker Little interest or pleasure in doing things: not at all Feeling down, depressed, or hopeless: not at all Exam Narrative Exam Narrative: Nurses note and vital signs reviewed and patient is not hypoxic. General: The patient appears well and in no apparent distress. Patient is resting comfortably on cart. Skin: Warm, dry, no pallor noted. There is no rash noted. Head: Normocephalic, atraumatic Eye: Normal conjunctiva, no drainage Ears, Nose, Mouth, and Throat: oral mucosa is moist. Nares patent. Dental condition is poor with many teeth already missing and all the remaining ones have significant decay. No bleeding or pus present. No localized gingival swelling. No swelling to the floor of her mouth. She is handling oral secretions well. Cardiovascular: Regular Rate and Rhythm Respiratory: Patient is in no distress, no accessory muscle use, lungs are clear to auscultation, no wheezing, rales or rhonchi Back: non-tender GI: Soft and nontender Musculoskeletal: The patient has no evidence of calf tenderness, no pitting edema, symmetrical pulses noted bilaterally Neurological: A&O, normal speech Psychiatric: Cooperative Constitutional Vital Signs, click to edit/add: Last Vital Signs Temp 98.2 F 10/31/24 12:28 Pulse 71 10/31/24 12:28 Resp 14 10/31/24 12:28 BP 117/77 10/31/24 12:28 Pulse Ox 100 10/31/24 12:28 O2 Del Method Room Air 10/31/24 12:28 Course Vital Signs Vital signs: Vital Signs Temperature 98.2 F 10/31/24 12:28 Pulse Rate 71 10/31/24 12:28 Respiratory Rate 14 10/31/24 12:28 Blood Pressure 117/77 10/31/24 12:28 Pulse Oximetry 100 10/31/24 12:28 Oxygen Delivery Method Room Air 10/31/24 12:28 Temperature 98.2 F 10/31/24 12:28 Pulse Rate 71 10/31/24 12:28 Respiratory Rate 14 10/31/24 12:28 Blood Pressure 117/77 10/31/24 12:28 Pulse Oximetry 100 10/31/24 12:28 Oxygen Delivery Method Room Air 10/31/24 12:28 Medical Decision Making MDM Narrative Medical decision making narrative: She is provided prescriptions for clindamycin and ibuprofen and she will see her dentist a week from today. Treatment diagnosis and follow-up were discussed with the patient. Differential Diagnosis Differential Diagnosis: Dental caries, dental infection Discharge Plan Discharge Chief Complaint: Dental/Oral Clinical Impression: Dental caries Patient Disposition: Home, Self-Care Time of Disposition Decision: 12:34 Condition: Good Prescriptions / Home Meds: New clindamycin HCl 300 mg capsule 300 mg PO Q6H 10 Days Qty: 40 0RF ibuprofen 800 mg tablet 800 mg PO Q8H PRN (Reason: pain) Qty: 20 0RF No Action norethindrone-e.estradiol-iron [Brooke Fe 08/12 (28)] 1 mg-20 mcg (21)/75 mg (7) tablet 1 tab PO DAILY dgpenfbhzdcakme-tuctygwvb-TG [Bromfed DM] 2-30-10 mg/5 mL syrup 10 ml PO Q6H PRN (Reason: cold symptoms) Qty: 200 0RF ondansetron 4 mg tablet,disintegrating 4 mg PO Q6H PRN (Reason: nausea and vomiting) Qty: 12 0RF Print Language: [place] Instructions: Toothache (ED) Referrals: [facility] [Primary Care Provider] - 1 week
== END 2024-10-31 13:01 | disposition home or self-care (01) ==
PROVIDERS: Emergency Provider Emergency Medicine
DX: K02.9 Dental caries, unspecified (principal); F17.200 Nicotine dependence, unspecified, uncomplicated
CPT/HCPCS: 99283